=== PATIENT | male | born 1950 | race Caucasian/White ===

== ENCOUNTER 2023-11-11 09:09 | Outpatient (OUT) | payer MEDICARE, OTHER, SELFPAY ==
[2023-11-11 09:56] LABS: Hematocrit 43.8 % (42.0-54.0); Hemoglobin 14.5 g/dL (14.0-18.0); Mean Corpuscular HGB Conc 33.1 g/dL (29.9-35.2); Mean Corpuscular Hemoglobin 31.2 pg (25.9-34.0); Mean Corpuscular Volume 94.2 fL (80.0-94.0); Mean Platelet Volume 10.5 fL (9.5-13.5); Platelet Count 206 10^3/uL (150-450); Red Blood Count 4.65 10^6/uL (4.70-6.10); Red Cell Distribution Width 12.8 % (11.0-15.0); White Blood Count 18.9 10^3/uL (4.0-11.0)
[2023-11-11 10:39] LABS: Free T4 1.05 ng/dL (0.76-1.46)
[2023-11-11 10:48] LABS: Lymphocytes Absolute Manual 13.23 10^3/uL (1.20-3.80); Monocytes Absolute Manual 0.37 10^3/uL (0.30-0.80); Prostate Specific Antigen Scrn 1.27 ng/mL (<=4.00); Segmented Neut Absolute Manual 3.59 10^3/uL (1.4-6.5)
[2023-11-11 10:49] LABS: Smudge Cells SEEN
[2023-11-11 11:02] LABS: Alanine Aminotransferase 28 U/L (16-63); Albumin Globulin Ratio 1.4; Albumin Level 3.9 g/dL (3.4-5.0); Alkaline Phosphatase 65 U/L (46-116); Anion Gap 10.8; Aspartate Amino Transferase 19 U/L (15-37); BUN Creatinine Ratio 16.3; Bilirubin Total 0.9 mg/dL (0.2-1.0); Calcium 9.1 mg/dL (8.5-10.1); Carbon Dioxide 29.2 mmol/L (21.0-32.0); Chloride 106 mmol/L (98-107); Chol HDL Ratio 2.8; Cholesterol 158 mg/dL (<=200); Estimated GFR (African America >60 (>=60); Estimated GFR (Non-African Ame >60 (>=60); Globulin 2.8 g/dL; Glucose 97 mg/dL (74-106); HDL Cholesterol 57 mg/dL (40-60); LDL Cholesterol Calculated 92.8 mg/dL; Sodium 142 mmol/L (136-145); Thyroid Stimulating Hormone 1.325 uIU/mL (0.358-3.740); Total Protein 6.7 g/dL (6.4-8.2); Triglycerides 41 mg/dL (<=150); VLDL CHOLESTEROL 8.2 mg/dL
== END 2023-11-11 09:10 | disposition home or self-care (01) ==
LOC: LAB 09:14
PROVIDERS: PCP Internal Medicine; Visit Provider Internal Medicine
DX: E78.00 Pure hypercholesterolemia, unspecified (principal); C91.10 Chronic lymphocytic leukemia of B-cell type not having achieved remission; E03.8 Other specified hypothyroidism; R79.89 Other specified abnormal findings of blood chemistry; Z12.5 Encounter for screening for malignant neoplasm of prostate
CPT/HCPCS: 36415; 80053; 80061; 84439; 84443; 85007; 85027; G0103

== ENCOUNTER 2024-10-20 12:59 | Outpatient (OUT) | payer MEDICARE, OTHER, SELFPAY ==
--- OUTSIDE RECORDS SUMMARY | 2024-10-13 09:20 | XMS_ITS | Encounter Summary ---
Author Organization [facility] Address [address] [place], [place] [id number] Care Team Providers Care Viscera Washer Name Role Phone Ronald Pollard DO Primary Care Provider [phone] Source Comments In the event this information is protected by the Federal Confidentiality of Alcohol and Drug AbusePatient Records regulations: The Federal rules restrict any use of the information to criminally investigate or prosecute any alcohol or drug abuse patient.[facility] Reason for Visit * Reason Comments CLL EVERARDO/ 1 year follow u p Encounter Details Date Type Department Care Team (Latest Contact Info) Description 10/13/2024 9:20 AM EDT Visit (SP) Office Hematology/Oncology [address] [place] [address] [place] [address] Israel Dover MD [address] [facility] [place] [address] CLL (chronic lymphocytic leukemia) (HCC) (Primary Dx); Personal history of malignant neoplasm of larynx; Unilateral inguinal hernia without obstruction or gangrene, recurrence not specified; Presence of right artificial hip joint Social History Tobacco Use Types Packs/Day Years Used Date Smoking Tobacco: Never Passive Smoke Exposure: Never Smokeless Tobacco: Never Alcohol Use Standard Drinks/Week Comments Never 0 (1 standard drink = 0.6 oz pur e alcohol) PHQ-2 Answer Date Recorded PHQ-2 score 0 10/13/2024 Area Deprivation Index Answer Date Emery rded National Score (1-100), lower number is lower ri sk 86 10/17/2022 State Score (1-10), lower number is lower risk 8 10/17/2022 Data from: https://www.neighborhoodatlas.medicine.[facility]/. Last address used for calculation [address] 10/17/2022 Sex and Gender Information Value Date Recorded Sex Assigned at Male 08/04/2019 1:11 AM EDT Legal Sex Male 9:52 AM EST Gender Identity Male 08/04/2019 1:11 AM EDT Sexual Orientation Straight 08/04/2019 1: 14 AM EDT documented as of this encounter Last Filed Vital Signs Vital Sign Reading Time Taken Comments Blood Pressure 138/77 10/13/2024 9:08 AM EDT Pulse 66 10/13/2024 9:08 AM EDT Temperature 36.6 C (97.8 F) 10/13/2024 9:08 AM EDT Respiratory Rate 16 10/13/2024 9:08 AM EDT Oxygen Saturation 96% 10/13/2024 9:08 AM EDT Inhaled Oxygen Concentration - - Weight 88.9 kg (195 lb 15.8 oz) 10/13/2024 9:08 AM EDT Height 180.3 cm (5' 10.98 ) 10/13/2024 9:08 AM E DT Body Mass Index 27.35 10/13/2024 9:08 AM EDT documented in this encounter Functional Status * Are you deaf or do you have serious difficulty hearing? Answer Date of Assessment Author No 08/31/2014 9:10 AM EDT Michael Pulido lie * Are you blind or do you have serious difficulty seeing, even when wearing glasses? Answer Date of Assessment Author No 08/31/2014 9:10 AM EDT Michael Pulido lie * Do you have serious difficulty walking or climbing stairs? Answer Date of Assessment Author No 08/31/2014 9:10 AM EDT Michael Pulido lie * Do you have difficulty dressing or bathing? Answer Date of Assessment Author No 08/31/2014 9:10 AM EDT Michael Pulido lie * Because of a physical, mental, or emotional condition, do you have difficulty doing errands alone such as visiting a doctor's office or shopping? Answer Date of Assessment Author No 08/31/2014 9:10 AM EDMichael Lozada documented as of this encounter Mental Status * Because of a physical, mental, or emotional condition, do you have serious difficulty concentrating, remembering, or making decisions? Answer Entry Date Author No 08/31/2014 9:10 AM EDMichael Lozada documented in this encounter Patient Instructions * Patient Instructions* Israel Dover MD - 10/13/2024 9:38 AM EDT RTC in 1 year labs same day. We discussed your chronic lymphocytic leukemia (CLL): - Your lab results today show a white blood cell count of 15,000, hemoglobin of 13.9, and plateletsof 207. These results are consistent with your previous labs, and there are no significant changes. - Your CLL remains at stage 0, which is a very early stage. This means your bone marrow is functioning well, producing adequate red blood cells and platelets, and there is no evidence of rapid disease progression. - I did not feel any concerning lymph nodes during your physical exam, and your spleen is not enlarged. This is reassuring. - Please monitor for any new symptoms, including significant weight loss (more than 15%), drenchingnight sweats, or noticeable lymph node swelling. Let us know if you experience any of these symptoms. - We will continue to monitor your CLL with annual follow-ups unless there are changes in your condition. Your next appointment will include labs on the same day. We discussed your upcoming hip replacement: - You mentioned that you are scheduled to see Dr. Box next week for a hip replacement. Please follow their instructions for preparation and recovery. We discussed your inguinal hernia: - Since your hernia is not currently causing you any discomfort, no intervention is needed at this time. Please let us know if this changes. Follow-Up Plan: - We will see you back in one year for your next follow-up and labs. If any new symptoms or concerns arise before then, please contact our office. documented in this encounter Progress Notes * Israel Dover MD - 10/13/2024 9:20 AM EDT Images from the original note were not included. NAME: Kerwin Carrillo CLINIC NO.: [id number] DATE OF SERVICE: October 13, 2024 (Stanislaw) Some elements in this clinic note that are critical to medical decision making have been carefully reviewed and included from a prior clinic note dated: October 07, 2023 (Daily) Referring Provider: Yosef Ambrosio Additional Clinicians involved in Kerwin Carrillo's care: Allyson Hernandez DIAGNOSIS: CLL CASE SUMMARY / ASSESSMENT: 74 year old man with CLL currently under observation only and a history of early stage laryngeal cancer s/p radiation in 2019. 1. CLL 2. Stage I laryngeal cancer status post radiation therapy completed September 2019 follow-up with ENT and Dr. Hernandez 3. Inguinal hernia SUMMARIZED PLAN OF CARE: RTC in 1 year labs same day. AI Assisted A/P: 1. CLL (chronic lymphocytic leukemia) (HCC) (C91.10) Stage 0 CLL with stable laboratory findings. Recent labs show WBC count of 15,000, hemoglobin 13.9,and platelets 207, indicating stable bone marrow function. No significant lymphadenopathy or splenomegaly noted on physical exam. No reported symptoms of weight loss or night sweats. - Continue annual follow-up with laboratory evaluations. - Monitor for any signs of disease progression, including significant increases in WBC count or development of symptoms such as night sweats or weight loss. - Patient understands and agrees with the plan. 2. Personal history of malignant neoplasm of larynx (Z85.21) Completed treatment in 2019. No current issues reported. Follow-up with Dr. Garces today. 3. Unilateral inguinal hernia without obstruction or gangrene, recurrence not specified (K40.90) Hernia present but not causing significant symptoms. Advised by Dr. Pollard to leave it alone if not bothersome. 4. Presence of right artificial hip joint (Z96.641) Scheduled for hip replacement with Dr. Box next week due to chronic pain unrelieved by previous injections. CASE HISTORY: Reverse Chronological Order 08/16/19-09/23/19 Radiation : AREA TREATED: Larynx 6,300cGy in 28 fractions, 2 Christian, 3D Conformal, 6MV with daily CBCT TOTAL:6,300cGy in 28 fractions ELAPSED TIME: 38 days. HPI: Updated Visit, October 16, 2024: transition of care On 2019, patient completed treatment for laryngeal cancer and has been following up with Dr. Garces. Patient was diagnosed with Gallegos stage 0 chronic lymphocytic leukemia (CLL) over a year ago, characterized by elevated lymphocyte counts. Recent labs from today show a WBC count of 15,000 cells/??L, hemoglobin at 13.9 g/dL, and plateletsat 207,000/??L, indicating stable hematologic parameters. Patient denies any significant weight loss, night sweats, or noticeable lymphadenopathy. He is scheduled for a hip replacement next week due to chronic hip pain that has not responded to recent injections. He also has an inguinal hernia that is not currently causing symptoms. (Today) CBC: - WBC: 15 x10^3/??L - Hemoglobin: 13.9 g/dL - Platelets: 207 x10^3/??L REVIEW OF SYSTEMS Per HPI and otherwise negative by full review of organ systems. ECOG PERFORMANCE STATUS: 0 PHYSICAL EXAMINATION: Vitals: BP 138/77 Pulse 66 Temp (Src) 97.8 (Temporal) Resp 16 Ht 5' 10.984 (1.80m) Wt 195 lb 15.8 oz (88.9kg) SpO2 96% BMI 27.35 kg/(m^2). Body surface area is 2.11 meters squared. Exam limited to gross visualization where appropriate. Gen.: This is an age-appropriate patient in no acute distress. Head: Appears atraumatic with no visible lesions. Eyes: Pupils equally round and reactive to light, extraocular muscles are intact. Neck: Supple. Respiratory: Appears to be respiring comfortably. Neurologic: Nonfocal to gross visualization. Alert and oriented ??3. Psychiatric: No evidence of inappropriate anxiety or depression. Skin: Visible areas of skin without rash, lesions, wounds or petechiae. Lymphatic: No lymphadenopathy in suboccipital, submandibular, supraclavicular, epitrochlear, axillary, or inguinal regions Abdomen: Soft, non-tender, non-distended, no masses palpable, no hepatosplenomegaly ALLERGIES: ALLERGIES No Known Allergies MEDICATIONS: traMADol (ULTRAM) 50 mg tablet Take 50 mg by mouth two times a day as needed. meloxicam (MOBIC) 15 mg tablet atorvastatin (LIPITOR) 10 mg tablet Take 10 mg by mouth once daily. LABORATORY VALUES: WBC (k/uL) Date Value 10/13/2024 15.57 (H) RBC (m/uL) Date Value 10/13/2024 4.47 Hemoglobin (g/dL) Date Value 10/13/2024 13.9 Hematocrit (%) Date Value 10/13/2024 42.7 MCV (fL) Date Value 10/13/2024 95.5 MCH (pg) Date Value 10/13/2024 31.1 MCHC (g/dL) Date Value 10/13/2024 32.6 RDW-CV (%) Date Value 10/13/2024 13.0 Platelet Count (k/uL) Date Value 10/13/2024 207 MPV (fL) Date Value 10/13/2024 10.6 Glucose (mg/dL) Date Value 10/13/2024 107 (H) BUN (mg/dL) Date Value 10/13/2024 19 Creatinine (mg/dL) Date Value 10/13/2024 1.03 Sodium (mmol/L) Date Value 10/13/2024 142 Potassium (mmol/L) Date Value 10/13/2024 4.3 Chloride (mmol/L) Date Value 10/13/2024 106 CO2 (mmol/L) Date Value 10/13/2024 28 Protein, Total (g/dL) Date Value 10/13/2024 6.6 Albumin (g/dL) Date Value 10/13/2024 4.5 Calcium, Total (mg/dL) Date Value 10/13/2024 9.5 Alkaline Phosphatase (U/L) Date Value 10/13/2024 78 Bilirubin, Total (mg/dL) Date Value 10/13/2024 1.0 AST (U/L) Date Value 10/13/2024 19 ALT (U/L) Date Value 10/13/2024 19 DIAGNOSIS: (C91.10) CLL (chronic lymphocytic leukemia) (HCC) (primary encounter diagnosis) Plan: LACTATE DEHYDROGENASE, COMPLETE BLOOD COUNT AND DIFFERENTIAL, COMPREHENSIVE METABOLIC PANEL, URIC ACID (Z85.21) Personal history of malignant neoplasm of larynx (K40.90) Unilateral inguinal hernia without obstruction or gangrene, recurrence not specified (Z96.641) Presence of right artificial hip joint PAST MEDICAL HISTORY Diagnosis Date Basal cell adenocarcinoma CLL (chronic lymphocytic leukemia) (HCC) GERD (gastroesophageal reflux disease) Hypercholesteremia PAST SURGICAL HISTORY Procedure Laterality Date HERNIA REPAIR HX Social History Tobacco Use Smoking status: Never Passive exposure: Never Smokeless tobacco: Never Vaping Use Vaping status: Never Used Substance Use Topics Alcohol use: Never Drug use: Never History reviewed. No pertinent family history. I spent a total of 30 minutes on the date of the service which included preparing to see the patient, aiku-es-pilz patient care, completing clinical documentation, obtaining and/or reviewing separately obtained history, performing a medically appropriate examination, counseling and educating the pat ient/family/caregiver, ordering medications, tests, or procedures, independently interpreting results (not separately reported), communicating results to the patient/family/caregiver, and care coordination (not separately reported). Israel Dover MD, CPE Hematology and Oncology Services Provided at: [place], [place] CC: Ronald Pollard DO documented in this encounter Plan of Treatment Upcoming Encounters Date Type Department Care Team (Latest Contact Info) Description 10/13/2025 10:00 AM EDT Office Visit [facility] [address] [place] [address] [place] [address] 1 year follow up with lab 10/13/2025 10:20 AM EDT Visit (SP) Office Hematology/Oncology [address] [facility] [place] [address] Israel Dover MD [address] [place] [address] [place] [address] 1 year follow up with lab Scheduled Orders Name Type Priority Associated Diagnoses Orde r Schedule LACTATE DEHYDROGENASE Lab Routine CLL (chronic lymphocytic leukemia) (HCC) Expected: 10/13/2025 (Approximate), Expires: 10/13/2025 COMPLETE BLOOD COUNT AND DIFFERENTIAL Lab Routine CLL (chronic lymphocytic leukemia) (HCC) Expected: 10/13/2025 (Approximate), Expires: 10/13/2025 COMPREHENSIVE METABOLIC PANEL Lab Routine CLL (chronic lymphocytic leukemia) (HCC) Expected: 10/13/2025 (Approximate), Expires: 10/13/2025 URIC ACID Lab Routine CLL (chronic lymphocytic leukemia) (HCC) Expected: 10/13/2025 (Approximate), Expires: 01/12/2026 documented as of this encounter Visit Diagnoses Diagnosis CLL (chronic lymphocytic leukemia) (HCC)- Primary Chronic lymphoid leukemia, without mention of having achieved remission Personal history of malignant neoplasm of larynx Unilateral inguinal hernia without obstruction or gangrene, recurrence not specified Presence of right artificial hip joint Hip joint replacement by other means documented in this encounter Care Teams Viscera Washer Relationship Specialty Start Date End Date Ronald Pollard DO PCP - General Internal Medicine 05/02/11 documented as of this encounter
--- OUTSIDE RECORDS SUMMARY | 2024-10-13 09:45 | XMS_ITS | Encounter Summary ---
Author Organization [facility] Address [address] [place], [place] [address] Care Team Providers Care Hide Washer Name Role Phone Ronald Pollard DO Primary Care Provider [phone] Source Comments In the event this information is protected by the Federal Confidentiality of Alcohol and Drug AbusePatient Records regulations: The Federal rules restrict any use of the information to criminally investigate or prosecute any alcohol or drug abuse patient.[facility] Reason for Visit * Reason Comments Head and Neck Cancer Encounter Details Date Type Department Care Team (Late st Contact Info) Description 10/13/2024 9:45 AM EDT Office Visit Radiation Oncology [address] [place] [address] Juancarlos Hernandez MD [address] [place] [address] History of cancer of larynx (Primary Dx) Social History Tobacco Use Types Packs/Day Years [...] is lower risk 8 10/17/2022 Data from: https://www.neighborhoodatlas.medicine.[facility]/. Last address used for calculation [address] 10/17/2022 Sex and Gender Information Value Date Recorded Sex Assigned at Male 08/04/2019 1:11 AM EDT Legal Sex Male 9:52 AM EST Gender Identity Male 08/04/2019 1:11 AM EDT Sexual Orientation Straight 08/04/2019 1: 14 AM EDT documented as of this encounter Functional Status * Are you [...] Assessment Author No 08/31/2014 9:10 AM EDT AltMichael george lie * Do you have difficulty dressing or bathing? Answer Date of Assessment Author No 08/31/2014 9:10 AM EDT AltMichael george lie * Because of a physical, mental, or emotional condition, do you have difficulty doing errands alone such as visiting a doctor's office or shopping? Answer Date of Assessment Author No 08/31/2014 9:10 AM EDT Michael Pulido lie documented as of this encounter Mental Status * Because of a physical, mental, or emotional condition, do you have serious difficulty concentrating, remembering, or making decisions? Answer Entry Date Author No 08/31/2014 9:10 AM EDT Michael Pulido lie documented in this encounter Progress Notes * Juancarlos Hernandez MD - 10/13/2024 9:46 AM EDT Radiation Oncology - Follow Up Note PATIENT DIAGNOSIS: Laryngeal cancer, right true cord T1N0M0 RADIATION SUMMARY: DATES OF TREATMENT: 08/16/19-09/23/19 AREA TREATED: Larynx DELIVERED DOSE: Larynx: 6,300cGy in 28 fractions, 2 Christian, 3D Conformal, 6MV with daily CBCT TOTAL:6,300cGy in 28 fractions ELAPSED TIME: 38 days. INTERVAL HISTORY: Doing well. Denies any hoarseness. No dysphagia. 10/17/22: Doing well denies new problems. Denies dysphagia or neck pain. Voice stable. 10/18/21:Patient developed episode of hair loss including eyebrows. Also some lack of appetite. Has been on odomzo. Which he has stopped and symptoms seem to have reversed. He was also started on prednisone. Also underwent laboratory work-up without significant findings. LABORATORY: Latest Reference Range & Units 06/08/20 09:14 10/03/20 11:31 10/10/22 08:45 T4 5.5 - 10.2 ug/dL 6.8 6.3 6.3 TSH 0.270 - 4.200 mIU/L 1.390 1.050 1.340 ALLERGIES No Known Allergies MEDICATIONS: traMADol (ULTRAM) 50 mg tablet Take 50 mg by mouth two times a day as needed. meloxicam (MOBIC) 15 mg tablet atorvastatin (LIPITOR) 10 mg tablet Take 10 mg by mouth once daily. REVIEW OF SYSTEMS: GENERAL: Negative for weight loss, fevers, chills, or night sweats. HEENT: Denies dysphasia dyspnea otalgia or other issues. NECK: Negative for masses in the neck. RESPIRATORY: Negative for cough or shortness of breath. CARDIAC: Negative for chest pain, palpitations, murmurs, or syncopal episodes. SKIN: Negative for rashes or other skin changes. PHYSICAL EXAM: 10/13/24 Weight 88.9 kg (195 lb 15.8 oz) Height 180.3 cm (5' 10.98 ) BSA 2.11 BMI 27.35 Temp 36.6 ??C (97.8 ??F) Pulse 66 Resp 16 BP 138/77 SpO2 96 % KPS: 100 General Appearance: Well appearing, alert, in no acute distress, well-hydrated, well nourished.. Skin: Skin color, texture, turgor normal, no suspicious rashes or lesions. Slight hypopigmentation noted anterior neck. Oropharynx: Lips, mucosa, and tongue normal, teeth and gums normal, oropharynx normal. Indirect laryngeal exam without remarkable finding Neck: Supple, no adenopathy or masses ASSESSMENT/PLAN: 1. 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 He has continued close follow-up with Dr. Carrizales. He is now 5 years out from treatment. No postradiation issues. Plan to see patient back on an as needed basis. Your 2. Chronic lymphocytic leukemia diagnosed Clinical stage I disease. Current therapy is observation an is seeing Dr. Dover. Signed by: Juancarlos Hernandez MD cc: Ronald Pollard MD ([facility]) Dr. Carrizales Portions of the above note extracted and edited from previous visit as well as active information included in the EMR. documented in this encounter Plan of Treatment Upcoming Encounters Date Type Department Care Team (Latest Contact Info) Description 10/13/2025 10:00 AM EDT Office Visit [facility] [address] [place] [address] [place] [address] 1 year follow up with lab 10/13/2025 10:20 AM EDT Visit (SP) Office Hematology/Oncology [address] [place] [address] [place] [address] Israel Dover MD [address] [place] [address] 1 year follow up with lab documented as of this encounter Visit Diagnoses Diagnosis History of cancer of larynx- Primary Personal history of malignant neoplasm of larynx documented in this encounter Care Teams Hide Washer Relationship Specialty Start Date End Date Ronald Pollard DO PCP - General Internal Medicine 05/02/11 documented as of this encounter
--- OUTSIDE RECORDS SUMMARY | 2024-10-20 08:42 | XMS_ITS | Continuity of Care Document ---
Author Name [facility] Organization [facility] Care Team Providers Care Credit Card Interviewer Name Role Phone [facility] Unavailable Unavailable Medications Combined list of outpatient medications from Department of Defense and Veterans Affairs facilities.Medications provided include 1) outpatient medications from the last 15 months, and 2) patient-reported medications. Medication Details Route Status Patient Instructions Prescription Expires Prescription Number Last Dispense Date Ordering Provider Order Date Order Qty Source ATORVASTATI N CALCIUM (atorvastat in calcium), 20 MG, TABLET, ORAL, LAILA PHARMACEU, 500 ea. BOTTLE Active [id number] 2023 90 Pharmac y Data Transac tion Service Facilit y Immunizations Combined list of available immunizations from the Department of Defense and Veterans Affairs facilities. Immunization Series Date Given Administered By Site Reaction Lot Number CVX Code Drug Price Lister Status Comments Source COVID-19, mRNA, LNP-S, PF, 30 mcg/0.3 mL dose, gregg-sucrose 2021 MATHEW DICKENS () Not Given COVID-19, mRNA, LNP-S, PF, 30 mcg/0.3 mL dose, gregg-sucr ose [facility] Influenza vaccine, quadrivalent, adjuvanted 2019 MATHEW DICKENS () Not Given Influenza vaccine, quadrival ent, adjuvante d [facility] influenza, trivalent, adjuvanted 2018 MATHEW DICKENS () Not Given influenza , trivalent , adjuvante d [facility] influenza, injectable, quadrivalent, preservative free 2015 VESTA () Not Given influenza , injectabl e, quadrival ent, preservat antoine free [facility] influenza, injectable, quadrivalent, preservative free 2014 GIO LEMONS () Not Given influenza , injectabl e, quadrival ent, preservat antoine free [facility] Social History Combined list of available smoking, tobacco, and other social history from Department of Defense and Veterans Affairs facilities. Social History Type Response Date Comment [facility] e This section is an empty social history section. [facility]
--- OUTSIDE RECORDS SUMMARY | 2024-10-20 13:02 | XMS_ITS | Clinical Summary ---
Author Organization [facility] Address [address] [place] [address] Care Team Providers Care Manager Employment Name Role Phone Ronald Pollard DO Primary Care Provider [phone] Allergies No known active allergies Medications meloxicam (Mobic) 15 MG tablet Take 15 mg by mouth in the morning. Active atorvastatin (Lipitor) 10 MG tablet Take 10 mg by mouth 1 (one) time each day at the same time. Active omeprazole (PriLOSEC) [address] capsule Take 40 mg by mouth in the morning. Take before meals. 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 Immunizations Immunization Administration Dates Next Due Pneumococcal Polysaccharide PPSV23 12/20/2015 SARS-CoV-2, Unspecified 01/15/2022 Family History Medical History Relation Name Comments Alcohol abuse Father Heart failure Father Dementia Mother Mental illness Mother Relation Name Status Comments Father Mother Social History Tobacco Use Types Packs/Day Years Used Date Smoking Tobacco: Never Smokeless Tobacco: Never Tobacco Cessation:Counseling Given: Not Answered Alcohol Use Standard Drinks/Week Comments Yes 8 (1 standard drink = 0.6 oz pure alcohol) 1-2 drinks for >4x a week in the past year, Caffeine intake: 1-2 cups per day AUDIT-C Answer Date Recorded Q1: How often do you have a drink containing alcohol? 4 or more times a week 03/28/2023 Q2: How many drinks containi ng alcohol do you have on a typical day when you are drinking? 1 or 2 01/12/202 4 Q3: How often do you have si x or more drinks on one occasion? Never 03/28/2023 Sex and Gender Information Value Date Recorded Sex Assigned at Not on file Legal Sex Male 10:09 PM EDT Gender Identity Not on file Sexual Orientation Not on file Last Filed Vital Signs Vital Sign Reading Time Taken Comments Blood Pressure 124/54 12/30/2023 8:45 AM EDT Pulse - - Temperature - - Respiratory Rate - - Oxygen Saturation - - Inhaled Oxygen Concentration - - Weight 90.7 kg (200 lb) 12/30/2023 8:45 AM EDT Height 180.3 cm (5' 11 ) 12/30/2023 8:45 AM EDT Body Mass Index 27.89 12/30/2023 8:45 AM EDT Plan of Treatment Upcoming Encounters Date Type Department Care Team (Late st Contact Info) Description 12/28/2024 9:00 AM EDT Office Visit [facility] [address] [facility] [address] [place] [address] Miracle Carrizales MD [address] [facility] [address] [place] [address] Health Maintenance Due Date Last Done Comments CT Colonography 1949 Colonoscopy 1949 FIT 1949 FOBT 1950 Sigmoidoscopy 1950 Colorectal Cancer Screening 11/05/2024 FIT-DNA 11/05/2024 11/05/2021, 10/28/2018 Influenza Vaccine (#1) 2024 3, 01/15/2022, 12/04/2020, Additional history exists Pneumococcal Vaccine: 65+ Years Completed 12/20/2015, 02/20/2015, 1950 Insurance MEDICARE Care Teams Manager Employment Relationship Specialty Start Date End Date Ronald Pollard DO PCP - General Internal Medicine 08/20/22
--- OUTSIDE RECORDS SUMMARY | 2024-10-20 13:02 | XMS_ITS | Encounter Summary ---
Author Organization [facility] Address [address] [place], [place] [id number] Care Team Providers Care Manager Heavy Duty Name Role Phone Ronald Pollard DO Primary Care Provider [phone] Source Comments In the event this information is protected by the Federal Confidentiality of Alcohol and Drug AbusePatient Records regulations: The Federal rules restrict any use of the information to criminally investigate or prosecute any alcohol or drug abuse patient.[facility] Encounter Details Date Type Department Care Team (Latest Contact Info) Description 10/13/2024 Travel Social History Tobacco Use Types Packs/Day Years [...] is lower risk 8 10/17/2022 Data from: https://www.neighborhoodatlas.medicine.[facility].edu/. Last address used for calculation [address] 10/17/2022 Sex and Gender Information [...] AltMichael george lie * Do you have serious difficulty [...] Michael Pulido lie documented in this encounter Plan of Treatment Upcoming Encounters Date Type Department Care Team (Latest Contact Info) Description 10/13/2025 10:00 AM EDT Office Visit [facility] [address] [place] [address] 1 year follow up with lab 10/13/2025 10:20 AM EDT Visit (SP) Office Hematology/Oncology [address] [place] [address] Israel Dover MD [address] [place] [address] 1 year follow up with lab documented as of this encounter Visit Diagnoses Not on filedocumented in this encounter Care Teams Manager Heavy Duty Relationship Specialty Start Date End Date Ronald Pollard DO PCP - General Internal Medicine 05/02/11 documented as of this encounter
--- OUTSIDE RECORDS SUMMARY | 2024-10-20 13:02 | XMS_ITS | Clinical Summary ---
Author Organization [facility] Address [address] [place], [place] [id number] Care Team Providers Care Carpenter Mold Name Role Phone Ronald Pollard DO Primary Care Provider [phone] Allergies No known active allergies Medications atorvastatin (LIPITOR) 10 mg tablet Take 10 mg by mouth once daily. Active meloxicam (MOBIC) 15 mg tablet 08/27/2022 Active traMADol (ULTRAM) 50 mg tablet Take 50 mg by mouth two times a day as needed. 08/04/2024 Active Active Problems Problem Noted Date Diagnosed Date CLL (chronic lymphocytic leukemia) 03/26/2012 Cancer Staging:Clinical stage from 08/26/2018:Modified Gallegos Stage I(Modified Gallegos risk: Intermediate, Binet: Stage B, Lymphocytosis: Present, Adenopathy: Present, Organomegaly: Absent, Anemia: Absent, Thrombocytopenia: Absent) - Signed by Yosef Ambrosio) on 08/26/2018 Encounters Date Type Department Care Team Description 10/13/2024 9:45 AM EDT Office Visit Radiation Oncology [address] [place] [address] [place] [address] Juancarlos Hernandez MD History of cancer of larynx (Primary Dx) 10/13/2024 9:20 AM EDT Visit (SP) Office Hematology/Oncology [address] [place] [address] [place] [address] Israel Dover MD CLL (chronic lymphocytic leukemia) (HCC) (Primary Dx); Personal history of malignant neoplasm of larynx; Unilateral inguinal hernia without obstruction or gangrene, recurrence not specified; Presence of right artificial hip joint 10/13/2024 Travel 10/06/2024 Telephone Hematology/Oncology [address] [place] [address] [place] [address] Israel Dover MD Lab Orders from Last 3 Months Immunizations Immunization Administration Dates Next Due AS03 adjuvant 12/25/2018 diphtheria tetanus pertussis (DTP) vaccine 06/13 influenza (HD-IIV3) vaccine, age 65+ yr, high dose, trivalent, PF (FLUZONE HIGH-DOSE) 12/01/2019 influenza (HD-IIV4) vaccine, age 65+ yr, high dose, quadrivalent, PF (FLUZONE HIGH-DOSE) 01/15/2022,12/04/2020 influenza (IIV4) vaccine, ag e 6 mo - 64 yr, quadrivalent, PF (AFLURIA, FLUARIX, FLULAVAL, FLUZONE) 12/01/2019,12/24/2016,12/20/2015 influenza (aIIV3) vaccine, a ge 65+ yr, trivalent, PF (FLUAD) 01/19/2024,12/25/2018,12/23/2017 influenza (aIIV4) vaccine, a ge 65+ yr, quadrivalent, PF (FLUAD QUAD) 12/20/2022 pneumococcal (PCV7) vaccine, 7 valent (PREVNAR 7) 1950 pneumococcal conjugate (PCV1 3) vaccine, 13 valent (PREVNAR 13) 02/20/2015 pneumococcal polysaccharide (PPV23) vaccine, 23 valent (PNEUMOVAX 23) 12/20/2015 tetanus diphtheria pertussis (Tdap) vaccine, age 7+ yr (ADACEL, BOOSTRIX) 01/18/2008 Social History Tobacco Use Types Packs/Day Years Used Date Smoking Tobacco: Never Passive Smoke Exposure: Never Smokeless Tobacco: Never Tobacco Cessation:Counseling Given: Not Answered Alcohol Use Standard Drinks/Week Comments Never 0 (1 standard drink = 0.6 oz pur e alcohol) PHQ-2 Answer Date Recorded PHQ-2 score 0 10/13/2024 Area Deprivation Index Answer Date Emery rded National Score (1-100), lower number is lower ri sk 86 10/17/2022 State Score (1-10), lower number is lower risk 8 10/17/2022 Data from: https://www.neighborhoodatlas.[facility].edu/. Last address used for calculation [address] 10/17/2022 Sex and Gender Information Value Date Recorded Sex Assigned at Male 08/04/2019 1:11 AM EDT Legal Sex Male 9:52 AM EST Gender Identity Male 08/04/2019 1:11 AM EDT Sexual Orientation Straight 08/04/2019 1: 14 AM EDT Last Filed Vital Signs Vital Sign Reading [...] Mass Index 27.35 10/13/2024 9:08 AM EDT Plan of Treatment Upcoming Encounters Date Type Department Care Team (Latest Contact Info) Description 10/13/2025 10:00 AM EDT Office Visit [facility] [address] [place] [address] [place] [address] 1 year follow up with lab 10/13/2025 10:20 AM EDT Visit (SP) Office Hematology/Oncology [address] [facility] [place] [address] Israel Dover MD [address] [facility] [place] [address] 1 year follow up with lab Health Maintenance Due Date Last Done Comments Anxiety Screening 1967 Depression Screening 1967 Hepatitis C Screening 1967 Shingrix Vaccine (1 of 2) [address] Colonography 1994 Colonoscopy 1994 Fecal Occult Blood 1994 Sigmoidoscopy 1994 Medicare Annual Wellness Visit 02/14/2014 RSV Vaccine (1 - 1-dose 75+ series) 2024 Advance Directive Discussion 03/17/2024 Cologuard (FIT-DNA) 11/05/2024 11/05/2021, 9 Colorectal Cancer Screening 11/05/2024 Influenza Vaccine (#1) 2024 , 12/20/2022, 01/15/2022, Additional history exists Diabetes Screening 10/14/2027 10/13/2024, 0 10/14/2023, 11/05/2022, Additional history exists DTaP,Tdap,Td Vaccine (3 - Td or Tdap) 06/14/2031 06/13/2021, 01/18/2008 Pneumococcal Vaccine: 50+ Completed 2015, 02/20/2015, 1950 Procedures Procedure Name Priority Date/Time Associated Diagnosis Comments LD LACTATE DEHYDRO Routine 10/13/2024 9: 04 AM EDT CLL (chronic lymphocytic leukemia) (HCC) COMPREHENSIVE METABOLIC PANEL Routine 10/13/2024 9:04 AM EDT CLL (chronic lymphocytic leukemia) (HCC) CBC + DIFF Routine 10/13/2024 9:04 AM EDT CLL (chronic lymphocytic leukemia) (HCC) from Last 3 Months Results * LACTATE DEHYDROGENASE (10/13/2024 9:04 AM EDT) LD 171 135 - 225 U/L 10/13/2024 9:[address] [facility] Comment: Hemolysis present. The origin of the hemolysis, in vitro versus an in vivo hemolytic process, cannot be distinguished via this assay alone. In vitro hemolysis may lead to non-physiological (spurious) elevation in lactate dehydrogenase (LDH) results. The result should be interpreted in context of the clinical setting and other test results. Suggest reorder as clinically indicated. Blood BLOOD SPECIMEN / Unknown Venipuncture / Unknown 10/13/2024 9:04 AM EDT 10/13/2024 9:04 AM EDT us Bisi Dye FEED BLENDER.BOARD CERTIFIED MUSIC THERAPIST LABORATORY Final Re sult [facility] [address] [place] [address] * (ABNORMAL) COMPREHENSIVE METABOLIC PANEL (10/13/2024 9:04 AM EDT) Pathologist [facility] Protein, Total 6.6 6.3 - 8.0 g/dL 10/13/2024 9:[address] [facility] Albumin 4.5 3.9 - 4.9 g/dL 10/13/2024 9:[address] [facility] Calcium, Total 9.5 8.5 - 10.2 mg/dL 10/13/2024 9:[address] [facility] Bilirubin, Total 1.0 0.2 - 1.3 mg/dL 10/13/2024 9:[address] [facility] Alkaline Phosphatase 78 38 - 113 U/L 10/13/2024 9:[address] [facility] AST 19 14 - 40 U/L 10/13/2024 9:[address] [facility] ALT 19 10 - 54 U/L 10/13/2024 9:[address] [facility] Glucose 107(H) 74 - 99 mg/dL 10/13/2024 9:[address] [facility] Comment: The [place] Diabetes Association (ADA) provides guidance for cutoff values for fasting glucose and random glucose. The ADA defines fasting as no caloric intake for at least 8 hours. Fasting plasma glucose results between 100 to 125 mg/dL indicate increased risk for diabetes (prediabetes). Fasting plasma glucose results greater than or equal to 126 mg/dL meet the criteria for diagnosis of diabetes. In the absence of unequivocal hyperglycemia, results should be confirmed by repeat testing. In a patient with classic symptoms of hyperglycemia or hyperglycemic crisis, random plasma glucose results greater than or equal to 200 mg/dL meet the criteria for diagnosis of diabetes. Reference: Standards of Medical Care in Diabetes 2016, [place] Diabetes Association. Diabetes Care. 2016.39(Suppl 1). BUN 19 9 - 24 mg/dL 10/13/2024 9:[address] [facility] Creatinine 1.03 0.73 - 1.22 mg/dL 10/13/2024 9:[address] [facility] Sodium 142 136 - 144 mmol/L 10/13/2024 9:[address] [facility] Potassium 4.3 3.7 - 5.1 mmol/L 10/13/2024 9:[address] [facility] Chloride 106 98 - 107 mmol/L 10/13/2024 9:[address] [facility] CO2 28 22 - 30 mmol/L 10/13/2024 9:[address] [facility] Anion Gap 8 8 - 15 mmol/L 10/13/2024 9:[address] [facility] Estimated Glomerular Filtration Rate 76 >=60 mL/min/1. 73m 10/13/2024 9:[address] [facility] Comment:Estimated Glomerular Filtration Rate (eGFR) is calculated using the 2020 CKD-EPI creatinine equation. This equation utilizes serum creatinine, sex, and age as parameters. The creatinine assay has traceable calibration to isotope dilution- mass spectrometry. Refer to KDIGO guidelines for clinical interpretation. In patients with unstable renal function, e.g. those with acute kidney injury, the eGFR may not accurately reflect actual GFR. Blood BLOOD SPECIMEN / Unknown Venipuncture / Unknown 10/13/2024 9:04 AM EDT 10/13/2024 9:04 AM EDT us Bisi Dye APRN.BOARD CERTIFIED MUSIC THERAPIST LABORATORY Final Re sult [facility] [address] [place] [address] * (ABNORMAL) COMPLETE BLOOD COUNT AND DIFFERENTIAL (10/13/2024 9:04 AM EDT) WBC 15.57(H) 3.70 - 11.00 k/uL 10/13/2024 6:[address] [facility] RBC 4.47 4.20 - 6.00 m/uL 10/13/2024 6:[address] [facility] Hemoglobin 13.9 13.0 - 17.0 g/dL 10/13/2024 6:[address] [facility] Hematocrit 42.7 39.0 - 51.0 % 10/13/2024 6:[address] [facility] MCV 95.5 80.0 - 100.0 fL 10/13/2024 6:[address] [facility] MCH 31.1 26.0 - 34.0 pg 10/13/2024 6:[address] [facility] MCHC 32.6 30.5 - 36.0 g/dL 10/13/2024 6:[address] [facility] RDW-CV 13.0 11.5 - 15.0 % 10/13/2024 6:[address] [facility] Platelet Count 207 150 - 400 k/uL 10/13/2024 6:[address] [facility] MPV 10.6 9.0 - 12.7 fL 10/13/2024 6:[address] [facility] NRBC 0.0 /100 WBC 10/13/2024 6:36 PM EDT [facility] Absolute nRBC <0.01 <0.01 k/uL 10/13/2024 6:36 PM EDT [facility] Neutrophils % 6.0 % 10/13/2024 6:36 PM EDT [facility] Abs Neut (Segs + Bands) 0.93(L) 1.45 - 7.50 k/uL 10/13/2024 6:36 PM EDT [facility] Lymphocytes % 87.0 % 10/13/2024 6:36 PM EDT [facility] Abs Lymph (Normal + Reactive) 13.55(H) 1.00 - 4.00 k/uL 10/13/2024 6:36 PM EDT [facility] Monocytes % 2.0 % 10/13/2024 6:36 PM EDT [facility] Abs Sheridan 0.31 <0.87 k/uL 10/13/2024 6:36 PM EDT [facility] Eosin% 4.0 % 10/13/2024 6:36 PM EDT [facility] Abs Eosin 0.62(H) <0.46 k/uL 10/13/2024 6:36 PM EDT [facility] Basophils % 1.0 % 10/13/2024 6:36 PM EDT [facility] Abs Baso 0.16(H) <0.11 k/uL 10/13/2024 6:36 PM EDT [facility] Platelet Estimate Adequate 10/13/2024 6:36 PM EDT [facility] Red Cell Morph Reviewed: unremarkable 10/13/2024 6:36 PM EDT [facility] Diff Type Manual 10/13/2024 6:36 PM EDT [facility] Blood BLOOD SPECIMEN / Unknown Venipuncture / Unknown 10/13/2024 9:04 AM EDT 10/13/2024 9:04 AM EDT Narrative [facility] - 10/13/2024 6:36 PM EDT This is an appended report. These results have been appended to a previously verified report. us Bisi Dye FEED BLENDER.BOARD CERTIFIED MUSIC THERAPIST LABORATORY Final Re sult [facility] [address] [place] [address], [facility] [address] [place] [address] from Last 3 Months Insurance [facility] LIFE MEDICARE Care Teams Carpenter Mold Relationship Specialty Start Date End Date Ronald Pollard DO PCP - General Internal Medicine 05/02/11
--- OUTSIDE RECORDS SUMMARY | 2024-10-20 13:02 | XMS_ITS | Clinical Summary ---
Author Organization [facility] Address [address] [place] [address] Phone Care Team Providers Care Project Inspector Name Role Phone Unavailable Primary Care Provider Unavailabl e Social History Tobacco Use Types Packs/Day Years Used Date Smoking Tobacco: Never Assessed Sex and Gender Information Value Date Recorded Sex Assigned at Not on file Legal Sex Male 4:00 AM EST Gender Identity Not on file Sexual Orientation Not on file Plan of Treatment Health Maintenance Due Date Last Done Comments CT Colonography 1950 Colonoscopy 1949 FIT 1949 Lipid Panel 1949 Sigmoidoscopy 1949 Zoster Vaccines (1 of 2) 1999 COVID-19 Vaccine ( season) 2023 01/15/2022, 06/18/2021 RSV High Risk: (Elderly (60+) or Population) (1 - 1-dose 75+ series) 2024 Colorectal Cancer Screening 11/05/2024 FIT-DNA (Cologuard) 11/05/2024 11/05/2021 Influenza Vaccine (#1) 2024 3, 01/15/2022, 12/04/2020, Additional history exists DTaP/Tdap/Td Vaccines (4 - Td or Tdap) 06/14/2031 06/13/2021, 12/20/2015, 01/18/2008 Pneumococcal Vaccine Completed 12/20/2015, 02/20/2015, 1950 HIB Vaccines Aged Out No longer eligi ble based on patient's age to complete this topic HPV Vaccines Aged Out No longer eligi ble based on patient's age to complete this topic Hepatitis A Vaccines Aged Out No long er eligible based on patient's age to complete this topic Hepatitis B Vaccines Aged Out No long er eligible based on patient's age to complete this topic IPV Vaccines Aged Out No longer eligi ble based on patient's age to complete this topic Meningococcal Vaccine Aged Out No vera maria eligible based on patient's age to complete this topic Rotavirus Vaccines Aged Out No longer eligible based on patient's age to complete this topic
--- OUTSIDE RECORDS SUMMARY | 2024-10-20 13:02 | XMS_ITS | Encounter Summary ---
Author Organization [facility] Address [address] [facility] [place] [address] Care Team Providers Care Site Damage Prevention Technician Name Role Phone Ronald Pollard Primary Care Provider [phone] Encounter Details Date Type Department Care Team (Late Contact Info) Description 08/21/2022 Abstract [facility] [address] [facility] [place] [place] [address] Miracle Carrizales MD 112 [facility] [address] [place], [place] [id number] Social History Tobacco Use Types Packs/Day Years Used Date Smoking Tobacco: Never Smokeless Tobacco: Never Tobacco Cessation:Counseling Given: Not Answered Alcohol Use Standard Drinks/Week Comments Yes 8 (1 standard drink = 0.6 oz pure alcohol) 1-2 drinks for >4x a week in the past year, Caffeine intake: 1-2 cups per day Sex and Gender Information Value Date Recorded Sex Assigned at Not on file Legal Sex Male 10:09 PM EDT Gender Identity Not on file Sexual Orientation Not on file documented as of this encounter Plan of Treatment Upcoming Encounters Date Type Department Care Team (Late st Contact Info) Description 12/28/2024 9:00 AM EDT Office Visit [facility] [address] [facility] [address] [place] [id number] Miracle Carrizales MD 112 [facility] [address] [place], [place] [id number] documented as of this encounter Visit Diagnoses Not on filedocumented in this encounter Care Teams Site Damage Prevention Technician Relationship Specialty Start Date End Date Ronald Pollard DO PCP - General Internal Medicine 08/20/22 documented as of this encounter
--- OUTSIDE RECORDS SUMMARY | 2024-10-20 13:02 | XMS_ITS | Encounter Summary ---
Author Organization [facility] Address [address] [place], [place] [id number] Care Team Providers Care Integration Technician Name Role Phone Ronald Pollard DO Primary Care Provider [phone] Source Comments In the event this information is protected by the Federal Confidentiality of Alcohol and Drug AbusePatient Records regulations: The Federal rules restrict any use of the information to criminally investigate or prosecute any alcohol or drug abuse patient.[facility] Reason for Visit * Reason Comments Lab Orders Encounter Details Date Type Department Care Team (Late st Contact Info) Description 10/06/2024 Telephone Hematology/Oncology [address] [facility] [address] Israel Dover MD [address] [place] [address] Lab Orders Social History Tobacco Use Types Packs/Day Years Used Date Smoking Tobacco: Never Passive Smoke Exposure: Never Smokeless Tobacco: Never Alcohol Use Standard Drinks/Week Comments Never 0 (1 standard drink = 0.6 oz pur e alcohol) PHQ-2 Answer Date Recorded PHQ-2 score 0 10/22/2023 Area Deprivation Index Answer Date Emery rded National Score (1-100), lower number is lower ri 86 10/17/2022 State Score (1-10), lower number is lower risk 8 10/17/2022 Data from: https://www.neighborhoodatlas.medicine.[facility]/. Last address used for calculation Dayne LUEVANO [...] Assessment Author No 08/31/2014 9:10 AM EDT [place], [place] lie * Are you blind or do you have serious difficulty seeing, even when wearing glasses? Answer Date of Assessment Author No 08/31/2014 9:10 AM EDT [place] * Do you have serious difficulty walking or climbing stairs? Answer Date of Assessment Author No 08/31/2014 9:10 AM EDT [place] * Do you have difficulty dressing or bathing? Answer Date of Assessment Author No 08/31/2014 9:10 AM EDT [place] * Because of a physical, mental, or emotional condition, do you have difficulty doing errands alone such as visiting a doctor's office or shopping? Answer Date of Assessment Author No 08/31/2014 9:10 AM EDT [place] documented as of this encounter Mental Status * Because of a physical, mental, or emotional condition, do you have serious difficulty concentrating, remembering, or making decisions? Answer Entry Date Author No 08/31/2014 9:10 AM EDT [place] documented in this encounter Miscellaneous Notes * Telephone Encounter - Lucy Murcia MA - 10/06/2024 9:[address] labs if needed for appt on 10/13. Lucy Murcia MA documented in this encounter Plan of Treatment Upcoming Encounters Date Type Department Care Team (Latest Contact Info) Description 10/13/2025 10:00 AM EDT Office Visit [facility] [address] [place] [address] 1 year follow up with lab 10/13/2025 10:20 AM EDT Visit (SP) Office Hematology/Oncology [address] [place] [address] Israel Dover MD [address] [place] [address] 1 year follow up with lab documented as of this encounter Results * LACTATE DEHYDROGENASE (10/13/2024 9:04 AM EDT) [facility] LD 171 135 - 225 U/L 10/13/2024 9:31 AM EDT [facility] Comment: Hemolysis present. The origin [...] 10/13/2024 9:04 AM EDT us Bisi Dye APRN.[facility] Final Re sult [facility] [address] [place] [address] * (ABNORMAL) COMPREHENSIVE METABOLIC PANEL (10/13/2024 9:04 AM EDT) [facility] Protein, Total 6.6 6.3 - 8.0 g/dL 10/13/2024 9:32 AM EDT [facility] Albumin 4.5 3.9 - 4.9 g/dL 10/13/2024 9:32 AM EDT [facility] Calcium, Total 9.5 8.5 - 10.2 mg/dL 10/13/2024 9:32 AM [facility] Bilirubin, Total 1.0 0.2 - 1.3 mg/dL 10/13/2024 9:32 AM [facility] Alkaline Phosphatase 78 38 - 113 U/L 10/13/2024 9:32 AM [facility] AST 19 14 - 40 U/L 10/13/2024 9:32 AM [facility] ALT 19 10 - 54 U/L 10/13/2024 9:32 AM [facility] Glucose 107(H) 74 - 99 mg/dL 10/13/2024 9:32 AM [facility] Comment: The [place] [employer] (ADA) provides guidance for cutoff [...] Standards of Medical Care in Diabetes 2016, [place] [employer]. Diabetes Care. 2016.39(Suppl 1). BUN 19 9 - 24 mg/dL 10/13/2024 9:32 AM [facility] Creatinine 1.03 0.73 - 1.22 mg/dL 10/13/2024 9:32 AM [facility] Sodium 142 136 - 144 mmol/L 10/13/2024 9:32 AM [facility] Potassium 4.3 3.7 - 5.1 mmol/L 10/13/2024 9:32 AM [facility] Chloride 106 98 - 107 mmol/L 10/13/2024 9:32 AM [facility] CO2 28 22 - 30 mmol/L 10/13/2024 9:32 AM EDT [facility] Anion Gap 8 8 - 15 mmol/L 10/13/2024 9:32 AM EDT [facility] Estimated Glomerular Filtration Rate 76 >=60 mL/min/1. 73m 10/13/2024 9:32 AM EDT [facility] Comment:Estimated Glomerular Filtration Rate (eGFR) [...] 10/13/2024 9:04 AM EDT us Bisi Dye [employer].[facility] Final Re sult [facility] [address] [place] [id number] * (ABNORMAL) COMPLETE BLOOD COUNT AND DIFFERENTIAL (10/13/2024 9:04 AM EDT) WBC 15.57(H) 3.70 - 11.00 k/uL 10/13/2024 6:36 PM EDT [facility] RBC 4.47 4.20 - 6.00 m/uL 10/13/2024 6:36 PM EDT [facility] Hemoglobin 13.9 13.0 - 17.0 g/dL 10/13/2024 6:36 PM EDT [facility] Hematocrit 42.7 39.0 - 51.0 % 10/13/2024 6:36 PM EDT [facility] MCV 95.5 80.0 - 100.0 fL 10/13/2024 6:36 PM EDT [facility] MCH 31.1 26.0 - 34.0 pg 10/13/2024 6:36 PM EDT [facility] MCHC 32.6 30.5 - 36.0 g/dL 10/13/2024 6:36 PM EDT [facility] RDW-CV 13.0 11.5 - 15.0 % 10/13/2024 6:36 PM EDT [facility] Platelet Count 207 150 - 400 k/uL 10/13/2024 6:36 PM EDT [facility] MPV 10.6 9.0 - 12.7 fL 10/13/2024 6:36 PM EDT [facility] NRBC 0.0 /100 WBC 10/13/2024 6:36 PM EDT [facility] Absolute nRBC <0.01 <0.01 k/uL 10/13/2024 6:36 PM EDT [facility] Neutrophils % 6.0 % 10/13/2024 6:36 PM EDT [facility] Abs Neut (Segs + Bands) 0.93(L) 1.45 - 7.50 k/uL 10/13/2024 6:36 PM EDT [facility] Lymphocytes % 87.0 % 10/13/2024 6:36 PM EDT [facility] Abs Lymph (Normal + Reactive) 13.55(H) 1.00 - 4.00 k/uL 10/13/2024 6:36 PM EDT [facility] Monocytes % 2.0 % 10/13/2024 6:36 PM EDT [facility] Abs Mcduffie 0.31 <0.87 k/uL 10/13/2024 6:36 PM EDT [facility] Eosin% 4.0 % 10/13/2024 6:36 PM EDT [facility] Abs Eosin 0.62(H) <0.46 k/uL 10/13/2024 6:36 PM EDT [facility] Basophils % 1.0 % 10/13/2024 6:36 PM EDT [facility] Abs Baso 0.16(H) <0.11 k/uL 10/13/2024 6:36 PM EDT [facility] Platelet Estimate Adequate 10/13/2024 6:36 PM EDT [facility] Red Cell Morph Reviewed: unremarkable 10/13/2024 6:36 PM EDT [facility] Diff Type Manual 10/13/2024 6:36 PM EDT [facility] Blood BLOOD SPECIMEN / Unknown Venipuncture / Unknown 10/13/2024 9:04 AM EDT 10/13/2024 9:04 AM EDT Narrative [facility] - 10/13/2024 6:36 PM EDT This is an appended report. These results have been appended to a previously verified report. us Bisi Dye [employer].[facility] Final Re sult [facility] [address] [place] [address], [facility] [address] [place] [phone] documented in this encounter Visit Diagnoses Diagnosis CLL (chronic lymphocytic leukemia) (HCC)- Primary Chronic lymphoid leukemia, without mention of having achieved remission documented in this encounter Care Teams Integration Technician Relationship Specialty Start Date End Date Ronald Pollard DO PCP - General Internal Medicine 05/02/11 documented as of this encounter
[2024-10-20 13:31] LABS: Hemoglobin 14.1 g/dL (14.0-18.0)
[2024-10-20 14:08] LABS: Albumin Level 4.0 g/dL (3.4-5.0)
== END 2024-10-20 13:00 | disposition home or self-care (01) ==
LOC: LAB 13:00
PROVIDERS: PCP Internal Medicine; Visit Provider Internal Medicine
DX: M81.0 Age-related osteoporosis without current pathological fracture (principal); Z79.899 Other long term (current) drug therapy
CPT/HCPCS: 36415; 80323; 82042; 82306; 83036; 85018; 87081

== ENCOUNTER 2024-11-22 09:32 | Outpatient (OUT) | payer MEDICARE, OTHER, SELFPAY ==
--- OUTSIDE RECORDS SUMMARY | 2024-11-22 09:41 | XMS_ITS | CCD ---
Author Organization [facility] CliniSysd Care Team Providers Care Oiler Bander Name Role Phone Marcin Preciado Unavailable Unavailable Jesse Alberts Unavailable DO Ronald Pollard Primary Care Provider MD Jesse Alberts Attending Provider Ronald Pollard Unavailable SILVANA, DR HART Attending Unavailable BALL, DR HART Consulting Unavailable BALL, DR HART Primary Care Unavailable BALL, DR HART Admitting Unavailable BALL, DR HART Consulting Unavailable BALL, DR HART Primary Care Unavailable BALL, DR HART Admitting Unavailable BALL, DR HART Attending Unavailable BALL, DR HART Attending Unavailable BALL, DR HART Consulting Unavailable BALL, DR HART Primary Care Unavailable BALL, DR HART Admitting Unavailable BALL, DR HART Primary Care Unavailable BALL, DR HART Admitting Unavailable BALL, DR HART Attending Unavailable Ronald oPllard DO Primary Care Provider Ronald Pollard DO Primary Care Provider DO Ronald Pollard Primary Care Provider [phone] DO Ronald Pollard Attending Provider VLAD JUÁREZ Attending Unavailable VLAD JUÁREZ Attending Unavailable VLAD JUÁREZ Attending Unavailable Ronald Pollard MD Primary Care Provider Ronald Pollard DO Primary Care Provider Jesse Alberts MD Attending Provider Ronald Pollard DO Primary Care Provider Jesse Alberts MD Attending Provider Juancarlos HERNANDEZ Attending Unavailable DAILY, WILVER Referring Unavailable RONALD POLLARD Primary Care Unavailable WILVER AMBROSIO Referring Unavailable ISRAEL MARAVILLA Attending Unavailable RONALD POLLARD Primary Care Unavailable KARAMLOU, WILVER Referring Unavailable BALL, RONALD E Primary Care Unavailable SILVANA, RONALD E Primary Care Unavailable Juancarlos HERNANDEZ Attending Unavailable Juancarlos HERNANDEZ Referring Unavailable Adeel Cardona Attending Provider [phone] Crow Box MD Attending Provider [phone] Silvana Ronald Primary Care Unavailable Crow Box II Admitting UnavailCrow Tolliver II Attending Unavailabl e Jesse Alberts Attending Unavailable Silvana, Ronald Primary Care Unavailable Jesse Alberts Admitting Unavailable Silvana, Ronald Primary Care Unavailable Jesse Alberts Admitting Unavailable Jesse Alberts Attending Unavailable Silvana, Ronald Admitting Unavailable Ball, Ronald Primary Care Unavailable Silvana, Ronald Attending Unavailable Ronald Pollard DO Primary Care Provider [phone] Jesse Alberts MD Attending Provider [phone] Ronald Pollard DO Attending Provider [phone] Medications Current Medications Medication Drug Class(es) Dates Sig (Normalized) Sig (Original) acetaminophen 325 mg oral tablet (7 sources) take 1 tablet by mouth every four hours Tylenol 325 MG 1 tablet as needed Orally every 4 hrs Active atorvastatin 20 mg oral tablet (20 sources) HMG-CoA Reductase Inhibitor Start: 08-29-2023 Atorvastatin 20 mg tablet Active 0 .ROUTE .COMPLEX August 29, 2023 8:42am TAKE 1 TABLET DAILY IN THE EVENING Complies with drug therapy Start: 08-29-2023 End: 08-29-2023 take 1 tablet by mouth once daily Atorvastatin 20 mg tablet Discontinued 20 MG PO Daily August 29, 2023 12:00am August 29, 2023 8:42am Start: 03-28-2020 [id number] Medicat ion atorvastatin 80 mg tablet Lipitor 80 mg 03/28/2020 Active (Outside) take 1 tablet by marianna th once daily atorvastatin (LIPITOR) 10 mg tablet Take 10 mg by mouth once daily. Active Atorvastatin Herb cium 20 mg TAKE 1 TABLET DAILY IN THE EVENING Active Comment on above: Take 10 mg by mouth once daily. gabapentin 300 mg oral capsule (7 sources) Anti-epileptic Agent take 1 capsule by mouth every twenty-four hours Gabapentin 300 MG 1 capsule Orally Once a day for 90 days Active meloxicam 15 mg oral tablet (20 sources) Nonsteroidal Anti-inflammatory Drug Start: Meloxicam 15 mg tablet Active 0 .ROUTE .COMPLEX December 29, 2023 1:38pm TAKE 1 TABLET DAILY Complies with drug therapy Start: 12-29-2023 Meloxicam 15 m g tablet Active 0 .ROUTE .COMPLEX December 29, 2023 1:38pm TAKE 1 TABLET DAILY Start: 12-29-2023 Meloxicam 15 m g tablet Active 0 .ROUTE .COMPLEX December 29, 2023 12:38pm TAKE 1 TABLET DAILY Start: 11-12-2021 End: 12-29-2023 take 1 tablet by mouth once daily Meloxicam 15 mg tablet Discontinued 15 MG PO Daily November 05, 2023 12:00am December 29, 2023 1:38pm omeprazole 40 mg delayed release oral capsule (3 sources) Proton Pump Inhibitor Start: 08-25-2019 take 1 capsule by mouth before mealtime omeprazole (PriLOSEC) [address] capsule Take 40 mg by mouth in the morning. Take before meals. 08/25/2019 Active sildenafil 100 mg oral tablet (20 sources) Phosphodiesterase 5 Inhibitor Start: 11-13-2024 take 1 tablet by mouth once daily as needed Sildenafil 100 mg tablet Active 0 .ROUTE .COMPLEX November 13, 2024 8:24am TAKE 1 TABLET BY MOUTH DAILY NEEDED FOR SEXUAL ACTIVITY ADMINISTER 30 MINUTES TO 4 HOURS BEFORE ACTIVITY Complies with drug therapy Start: 11-05-2023 End: 11-05-2023 take 1 tablet by mouth once daily as needed Sildenafil 100 mg tablet Discontinued 100 MG PO Daily as needed November 05, 2023 12:00am November 05, 2023 10:35am Start: 11-05-2023 End: 11-13-2024 Sildenafil 100 mg tablet Discontinued 100 MG PO Daily as needed for sexual activity 09 13November 05, 2023 10:57am November 13, 2024 8:24am administer 30 minutes to 4 hours before activity take 1 tablet by marianna th once daily as needed Sildenafil Citrate 100 MG TAKE ONE TABLET BY MOUTH DAILY NEEDED FOR ERECTILE DYSFUNCTION for 6 Active traMADol hydrochloride 50 mg oral tablet (7 sources) Opioid Agonist Start: 08-04-2024 take 1 tablet by mouth twice daily as needed for pain Tramadol 50 mg tablet Active 50 MG PO Twice daily as needed for pain 60 August 04, 2024 12:00am Complies with drug therapy Problems Active Problems Problem Classification Problem Date Documented Date Episodic/Chronic Abdominal hernia (10 sources) Right inguinal hernia ; Translations: [Unilateral inguinal hernia, without obstruction or gangrene, not specified as recurrent] 11-05-2023 Episodic Acute bronchitis (3 sources) Acute bronchitis; Translations: [Acute bronchitis due to other specified organisms] Episodic Cancer of head and neck (20 sources) Malignant tumor of vocal cord; 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] Onset: 05-16-2019 Chronic Comment on above: Dx: 05/2019s/p radiat ion therapy Cancer of head and neck (4 sources) History of malignant neoplasm of larynx; Translations: [Personal history of malignant neoplasm of larynx] Onset: 10-13-2024 10-28-2023 Episodic Disorders of lipid metabolism (20 sources) Pure hypercholesterolemia; Translations: [Familial hypercholesterolemia] Onset: 02-20-2015 Chronic Heart valve disorders (1 source) Heart murmur; Translations: [Cardiac murmur, unspecified] 11-18-2024 Episodic Hyperplasia of prostate (6 sources) Lower urinary tract symptoms due to benign prostatic hypertrophy; Translations: [Benign prostatic hyperplasia with lower urinary tract symptoms] Onset: 02-20-2015 Chronic Leukemias (20 sources) Chronic lymphoid leukemia, disease; Translations: [Chronic lymphocytic leukemia of B-cell type not having achieved remission] Onset: 03-26-2012 Chronic Open wounds of extremities (1 source) Laceration without foreign body, left lower leg, subsequent encounter Episodic Open wounds of head; neck; and trunk (3 sources) Laceration of head; Translations: [Laceration without foreign body of other part of head, subsequent encounter] Episodic Osteoarthritis (20 sources) Localized, primary osteoarthritis of the pelvic region and thigh; Translations: [Unilateral primary osteoarthritis, right hip] Onset: 10-20-2024 Chronic Other aftercare (2 sources) Other correction (current) drug therapy; Translations: [OTH DETENTION CURRENT DRUG THERAPY] Onset: 07-04-2022 Episodic Other aftercare (1 source) Encounter for removal of sutures Episodic Other aftercare (1 source) Taking high risk medication; Translations: [Other property handler (current) drug therapy] 11-18-2024 Episodic Other circulatory disease (1 source) Elevated blood-pressure reading, without diagnosis of hypertension Episodic Other connective tissue disease (7 sources) Cramp in lower leg associated with rest; Translations: [Sleep related leg cramps] Chronic Other connective tissue disease (1 source) Hip joint prosthesis present; Translations: [Presence of right artificial hip joint] 10-16-2024 Chronic Other injuries and conditions due to external causes (1 source) Radiation sickness; Translations: [Radiation sickness, unspecified, initial encounter] 10-17-2022 Episodic Other injuries and conditions due to external causes (3 sources) History of fall; Translations: [History of falling] Episodic Other male genital disorders (16 sources) Male erectile dysfunction, unspecified; Translations: [Erectile dysfunction] 11-05-2023 Chronic Other nervous system disorders (20 sources) Chronic pain; Translations: [Other chronic pain] 08-04-2024 Chronic Other nervous system disorders (5 sources) Other chronic pain; Translations: [Other chronic pain] Onset: 01-22-2021 Resolved: 11-12-2021 Chronic Other non-epithelial cancer of skin (14 sources) 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; Translations: [Basal cell carcinoma of skin of ear and external auditory canal] Onset: 07-16-2015 Episodic Other non-traumatic joint disorders (11 sources) Pain in right hip joint; Translations: [Pain in right hip] Episodic Other non-traumatic joint disorders (3 sources) Joint pain; Translations: [Pain in unspecified joint] Episodic Other non-traumatic joint disorders (16 sources) Pain in right knee; Translations: [Right knee pain] Onset: 04-13-2024 04-13-2024 Episodic Other nutritional; endocrine; and metabolic disorders (1 source) Overweight Episodic Other nutritional; endocrine; and metabolic disorders (3 sources) Overweight; Translations: [Overweight] Episodic Other screening for suspected conditions (not mental disorders or infectious disease) (19 sources) Encounter for screening for malignant neoplasm of prostate; Translations: [Other specified abnormal findings of blood chemistry] Onset: 09-24-2021 Episodic Other screening for suspected conditions (not mental disorders or infectious disease) (1 source) No current problems or disability Onset: 04-10-2020 Other skin disorders (3 sources) Alopecia areata; Translations: [Alopecia areata, unspecified] Episodic Other upper respiratory infections (3 sources) Acute maxillary sinusitis; Translations: [Acute maxillary sinusitis, unspecified] Episodic Spondylosis; intervertebral disc disorders; other back problems (20 sources) Degeneration of intervertebral disc; Translations: [Other intervertebral disc degeneration, lumbar region] Onset: 01-22-2021 Resolved: 11-12-2021 Chronic Thyroid disorders (17 sources) Thyrotoxicosis, unspecified without thyrotoxic crisis or storm; Translations: [Thyrotoxicosis] Onset: 10-29-2021 Chronic Unclassified (3 sources) Exposure to acute respiratory syndrome coronavirus 2; Translations: [Contact with and (suspected) exposure to COVID-19] Unclassified (3 sources) M16.11 - Unilateral primary osteoarthritis, right hip Past or Other Problems Problem Classification Problem Date Documented Da te Episodic/Chronic Immunizations and screening for infectious disease (3 sources) Vaccination given; Translations: [Encounter for immunization] Onset: 02-20-2015 Episodic Other non-traumatic joint disorders (1 source) Pain in right hip Onset: 01-22-2021 Resolved: 01-22-2021 Episodic Other skin disorders (1 source) Alopecia areata, unspecified; Translations: [ALOPECIA AREATA UNSPECIFIED] Onset: 09-26-2021 Episodic Other upper respiratory disease (3 sources) Disorder of vocal cord; Translations: [Other diseases of vocal cords] Onset: 08-08-2022 08-08-2022 Episodic Other upper respiratory disease (3 sources) Hoarse; Translations: [Dysphonia] Onset: 08-08-2022 08-08-2022 Episodic Unclassified (1 source) Other low back pain M54.59 Onset: 11-12-2021 Resolved: 11-12-2021 Results Test Name Value Interpretation Reference Range Facility Glucose mean value [Mass/vol ume] in Blood Estimated from glycated hemoglobinOrdered By: Crow Box on 10-20-2024 Average glucose Estimated from glycated hemoglobin (Bld) [Mass/Vol] 100 mg/dL [facility] Hemoglobin A1c percentageOrd ered By: Crow Box on 10-20-2024 HbA1c (Bld) [Mass fraction] 5.1 % 4.5-6.2 [facility] Comment on above: ADA RECOMMENDED LIMI T 4.0 - 6.0ADA THERAPEUTIC TARGET < 7.0ACTION SUGGESTED> 7.0 Hemoglobin [Mass/volume] in BloodOrdered By: Crow Box on 10-20-2024 Hemoglobin (Bld) [Mass/Vol] 14.1 g/dL 14.0-18.0 [facility] Laboratory - Chemistry and C hemistry - challengeOrdered By: Crow Box on 10-20-2024 Albumin [Mass/Vol] 4.0 g/dL 3.4-5.0 [facility] No Panel InformationOrdered By: Crow Box on 10-20-2024 25-Hydroxy Vitamin D Total 43.8 ng/mL [facility] Comment on above: <20 ng/mL Vit D defi cient20-<30 ng/mL Vit D [id number] ng/mL Vit D sufficient>100 ng/mL Potential Toxicity No Panel InformationOrdered By: Ronald Pollard on 10-20-2024 Miscellaneous Test COMMENT . [facility] Comment on above: Test Ordered: [id number] Nicotine and Metabolite, QuantNicotine <1.0 ng/mL Reference Range: .This test was developed and its performance characteristicsdetermined by [employer]. It has not been cleared orapproved by the Food and Drug Administration.Nicotine levels greater than 2.0 are consistent with theuse of tobacco or tobacco cessation products.Cotinine <1.0 ng/mL Reference Range: .This test was developed and its performance characteristicsdetermined by [employer]. It has not been cleared orapproved by the Food and Drug Administration.Cotinine levels greater than 20.0 are consistent with theuse of tobacco or tobacco cessation products.Performed at: [facility] Lab[address] [id number] Director: Day Villarreal MD, Phone: [phone] at: [address] [id number] Director: Demar Dos Santos PhD, Phone: [phone] X-ray reportOrdered By: Tereso Billy on 10-20-2024 Study report [facility] [address] [place] [address] XRay Report Signed Patient: Kerwin Avila MR#: [id number] : 1950 Acct:[id number] Age/Sex: 74 / M ADM Date: 5 Loc: SOXD Room: Type: REG CLI Attending Dr: Crow Box II, MD Copies to: Crow Box MD~ Ordering Provider: Crow Box MD Date of Service: 10/20/24 XR/XR hip RT min 2V(w/wo pelvis)*: M16.11 - Unilateral primary osteoarthritis, right hip XR hip RT min 2V(w/wo pelvis)* 10/20/2024 10:08 AM SIGNS AND SYMPTOMS: Chronic right hip pain laterally PROTOCOL: Frontal radiograph the pelvis with crosstable lateral view of the right hip COMPARISON: 03/25/2024 FINDINGS: There is severe narrowing of the right hip joint space with bony remodeling of the articular surface of the femoral head. Subcortical cystic changes noted along both sides of the joint space. There is mild narrowing of the left hip joint space. There is no fracture or dislocation. Degenerative changes are partly visualized in the lumbar spine. XR/XR hip RT min 2V(w/wo pelvis)* IMPRESSION: Worsening severe degenerative changes of the right hip joint space with worsening remodeling of the articular surface of the femoral head. Impression dictated by: Tereso Billy M.D. 10/20/2024 4:46 PM Dictation Location: [place] [address] Transcribed By: [facility] 10/20/24 164 Dictated By: Tereso Billy II, MD 10/20/241643 Signed By: 10/20/241645 [facility] Work Phone: XR hip RT min 2V(w/wo pelvis )*on 10-20-2024 XR hip RT min 2V(w/wo pelvis)* [facility] [address] [place] [address] XRay Report Signed Patient: Kerwin Avila MR#: [id number] : 1950 Acct:[id number] Age/Sex: 74 / M ADM Date: 10/20/24 Loc: [facility] Room: Type: REG CLI Attending Dr: Crow Box II, MD Copies to: Crow Box MD Ordering Provider: Crow Box MD Date of Service: 10/20/24 XR/XR hip RT min 2V(w/wo pelvis)*: M16.11 - Unilateral primary osteoarthritis, right hip XR hip RT min 2V(w/wo pelvis)* 10/20/2024 10:08 AM SIGNS AND SYMPTOMS: Chronic right hip pain laterally PROTOCOL: Frontal radiograph the pelvis with crosstable lateral view of the right hip COMPARISON: 03/25/2024 FINDINGS: There is severe narrowing of the right hip joint space with bony remodeling of the articular surface of the femoral head. Subcortical cystic changes noted along both sides of the joint space. There is mild narrowing of the left hip joint space. There is no fracture or dislocation. Degenerative changes are partly visualized in the lumbar spine. XR/XR hip RT min 2V(w/wo pelvis)* IMPRESSION: Worsening severe degenerative changes of the right hip joint space with worsening remodeling of the articular surface of the femoral head. Impression dictated by: Tereso Billy M.D. 10/20/2024 4:46 PM Dictation Location: [place] [address] Transcribed By: [facility] 10/20/24 1646 Dictated By: Tereso Billy II, MD 10/20/24 1644 Signed By: 10/20/24 1646 Normal [facility] Basophils Auto (Bld) [#/Vol] Ordered By: Adeel Crespo on 10-13-2024 Basophils (Bld) [#/Vol] 0.16 10*3/uL High <0.11 [facility] Basophils/100 WBC Auto (Bld) Ordered By: Adeel Crespo on 10-13-2024 Basophils/100 WBC (Bld) 1.0 % [facility] Blood manual differential co mment interpretation narrativeOrdered By: Adeel Crespo on 10-13-2024 Manual differential comment Vick (Bld) [Interp] Manual [facility] CBC W Auto Differential pane l (Bld)on 10-13-2024 Basophils (Bld) [#/Vol] 0.16 10*3/uL High <0.11 [facility] Comment on above: Order Comment: Speci men Type: BLOOD SPECIMEN Ordering Facility: [facility] Address: [address] [place] [address] [place] [id number] Performed By: #### 5 7021-8 #### [facility] CLIA [id number] [address] [place] [address] LAB CLIA [id number] [address] [place] [address] [place] Basophils/100 WBC (Bld) 1.0 % Normal [facility] Comment on above: Order Comment: Speci men Type: BLOOD SPECIMEN Ordering Facility: [facility] Address: [address] [place] [address] Performed By: #### 5 7021-8 #### [facility] CLIA [id number] [address] [place] [address] LAB CLIA [id number] [address] [place] [address] [place] Differential cell count method Nom (Bld) Manual Normal [facility] Comment on above: Order Comment: Speci men Type: BLOOD SPECIMEN Ordering Facility: [facility] Address: [address] [place] [address] Performed By: #### 5 7021-8 #### [facility] CLIA [id number] [address] [place] [address] LAB CLIA [id number] [address] [place] [address] [place] Eosinophils (Bld) [#/Vol] 0.62 10*3/uL High <0.46 [facility] Comment on above: Order Comment: Speci men Type: BLOOD SPECIMEN Ordering Facility: [facility] Address: [address] [place] [address] Performed By: #### 5 7021-8 #### [facility] CLIA [id number] [address] [place] [address] LAB CLIA [id number] [address] [place] [address] [place] Eosinophils/100 WBC (Bld) 4.0 % Normal [facility] Comment on above: Order Comment: Speci men Type: BLOOD SPECIMEN Ordering Facility: [facility] Address: [address] [place] [address] Performed By: #### 5 7021-8 #### [facility] CLIA [id number] [address] [place] [address] LAB CLIA [id number] [address] [place] [address] [place] Erythrocyte distribution width (RBC) [Ratio] 13.0 % Normal 11.5-15.0 [facility] Comment on above: Order Comment: Speci men Type: BLOOD SPECIMEN Ordering Facility: [facility] Address: [address] [place] [address] Performed By: #### 5 7021-8 #### [facility] CLIA [id number] [address] [place] [address] LAB CLIA [id number] [address] [place] [address] [place] Hematocrit (Bld) [Volume fraction] 42.7 % Normal 39.0-51.0 [facility] Comment on above: Order Comment: Speci men Type: BLOOD SPECIMEN Ordering Facility: [facility] Address: [address] [place] [address] Performed By: #### 5 7021-8 #### [facility] CLIA [id number] [address] [place] [address] LAB CLIA [id number] [address] [place] [address] [place] Hemoglobin (Bld) [Mass/Vol] 13.9 g/dL Normal 13.0-17.0 [facility] Comment on above: Order Comment: Speci men Type: BLOOD SPECIMEN Ordering Facility: [facility] Address: [address] [place] [address] Performed By: #### 5 7021-8 #### [facility] CLIA [id number] [address] LAB CLIA [id number] [address] [place], [place] [address] [place] Lymphocytes (Bld) [#/Vol] 13.55 10*3/uL High 1.00-4.00 [facility] Comment on above: Order Comment: Speci men Type: BLOOD SPECIMEN Ordering Facility: [facility] Address: [address] [place] [address] Performed By: #### 5 7021-8 #### [facility] CLIA [id number] [address] [place] [address] LAB CLIA [id number] [address] [place] [address] [place] Lymphocytes/100 WBC (Bld) 87.0 % Normal [facility] Comment on above: Order Comment: Speci men Type: BLOOD SPECIMEN Ordering Facility: [facility] Address: [address] [place] [address] Performed By: #### 5 7021-8 #### [facility] CLIA [id number] [address] [place] [address] LAB CLIA [id number] [address] [place] [address] [place] MCH (RBC) [Entitic mass] 31.1 pg Normal 26.0-34.0 [facility] Comment on above: Order Comment: Speci men Type: BLOOD SPECIMEN Ordering Facility: [facility] Address: [address] [place] [address] Performed By: #### 5 7021-8 #### [facility] CLIA [id number] [address] [place] [address] LAB CLIA [id number] [address] [place] [address] [place] MCHC (RBC) [Mass/Vol] 32.6 g/dL Normal 30.5-36.0 [facility] Comment on above: Order Comment: Speci men Type: BLOOD SPECIMEN Ordering Facility: [facility] Address: [address] [place] [address] Performed By: #### 5 7021-8 #### [facility] CLIA [id number] [address] [place] [address] LAB CLIA [id number] [address] [place] [address] [place] MCV (RBC) [Entitic vol] 95.5 fL Normal 80.0-100.0 [facility] Comment on above: Order Comment: Speci men Type: BLOOD SPECIMEN Ordering Facility: [facility] Address: [address] [place] [address] Performed By: #### 5 7021-8 #### [facility] CLIA [id number] [address] [place] [address] LAB CLIA [id number] [address] [place] [address] [place] Monocytes (Bld) [#/Vol] 0.31 10*3/uL Normal <0.87 [facility] Comment on above: Order Comment: Speci men Type: BLOOD SPECIMEN Ordering Facility: [facility] Address: [address] [place] [address] Performed By: #### 5 7021-8 #### [facility] CLIA [id number] [address] [place] [address] LAB CLIA [id number] [address] [place] [address] [place] Monocytes/100 WBC (Bld) 2.0 % Normal [facility] Comment on above: Order Comment: Speci men Type: BLOOD SPECIMEN Ordering Facility: [facility] Address: [address] [place] [address] Performed By: #### 5 7021-8 #### [facility] CLIA [id number] [address] [place] [address] LAB CLIA [id number] [address] [place], [place] [address] [place] Neutrophils (Bld) [#/Vol] 0.93 10*3/uL Low 1.45-7.50 [facility] Comment on above: Order Comment: Speci men Type: BLOOD SPECIMEN Ordering Facility: [facility] Address: [address] [place] [address] Performed By: #### 5 7021-8 #### [facility] CLIA [id number] [address] [place] [address] LAB CLIA [id number] [address] [place] [address] [place] Neutrophils/100 WBC (Bld) 6.0 % Normal [facility] Comment on above: Order Comment: Speci men Type: BLOOD SPECIMEN Ordering Facility: [facility] Address: [address] [place] [address] Performed By: #### 5 7021-8 #### [facility] CLIA [id number] [address] [place] [address] LAB CLIA [id number] [address] [place] [address] [place] Nucleated RBC (Bld) [#/Vol] 10*3/uL Normal <0.01 [facility] Comment on above: Order Comment: Speci men Type: BLOOD SPECIMEN Ordering Facility: [facility] Address: [address] [place] [address] Performed By: #### 5 7021-8 #### [facility] CLIA [id number] [address] [place] [address] LAB CLIA [id number] [address] [place] [address] [place] Nucleated RBC/100 WBC (Bld) [Ratio] 0.0 /100 WBC Normal [facility] Comment on above: Order Comment: Speci men Type: BLOOD SPECIMEN Ordering Facility: [facility] Address: [address] [place] [address] Performed By: #### 5 7021-8 #### [facility] CLIA [id number] [address] [place] [address] LAB CLIA [id number] [address] [place], [place] [address] [place] Platelet mean volume (Bld) [Entitic vol] 10.6 fL Normal 9.0-12.7 [facility] Comment on above: Order Comment: Speci men Type: BLOOD SPECIMEN Ordering Facility: [facility] Address: [address] [place] [address] Performed By: #### 5 7021-8 #### [facility] CLIA [id number] [address] [place] [address] LAB CLIA [id number] [address] [place] [address] [place] Platelets (Bld) [#/Vol] 207 10*3/uL Normal 150-400 [facility] Comment on above: Order Comment: Speci men Type: BLOOD SPECIMEN Ordering Facility: [facility] Address: [address] [place] [address] Performed By: #### 5 7021-8 #### [facility] CLIA [id number] [address] [place] [address] LAB CLIA [id number] [address] [place], [place] [address] [place] Platelets Estimate (Bld) [#/Vol] Adequate Normal [facility] Comment on above: Order Comment: Speci men Type: BLOOD SPECIMEN Ordering Facility: [facility] Address: [address] [place] [address] Performed By: #### 5 7021-8 #### [facility] CLIA [id number] [address] [place] [address] LAB CLIA [id number] [address] [place], [place] [address] [place] RBC (Bld) [#/Vol] 4.47 10*6/uL Normal 4.20-6.00 [facility] Comment on above: Order Comment: Speci men Type: BLOOD SPECIMEN Ordering Facility: [facility] Address: [address] [place] [address] Performed By: #### 5 7021-8 #### [facility] CLIA [id number] [address] [place] [address] LAB CLIA [id number] [address] [place] [address] [place] RED CELL MORPH Reviewed: unremarkable Normal [facility] Comment on above: Order Comment: Speci men Type: BLOOD SPECIMEN Ordering Facility: [facility] Address: [address] [place] [address] Performed By: #### 5 7021-8 #### [facility] CLIA [id number] [address] [place] [address] LAB CLIA [id number] [address] [place] [address] [place] WBC (Bld) [#/Vol] 15.57 10*3/uL High 3.70-11.00 [facility] Comment on above: Order Comment: Speci men Type: BLOOD SPECIMEN Ordering Facility: [facility] Address: [address] [place] [address] Performed By: #### 5 7021-8 #### [facility] CLIA [id number] [address] [place] [address] LAB CLIA [id number] [address] [place] [address] [place] CNOVon 10-13-2024 CNOV Office Visit (RADTSA ) KERWIN AVILA ([id number]) 1950 M Date Time Provider Department 10/13/24 9:45 AM Juancarlos HERNANDEZ During your visit today, we recorded the following information about you: Juancarlos Hernandez MD 10/13/2024 10:18 AM Signed Radiation Oncology - Follow Up Note PATIENT [...] without significant findings. LABORATORY: Latest Reference Range AND Units 06/08/20 09:14 10/03/20 11:31 10/10/22 08:45 [...] ) BSA 2.11 BMI 27.35 Temp 36.6 ?C (97.8 ?F) Pulse 66 Resp 16 BP 138/77 SpO2 [...] He has continued close follow-up with Dr. Juárez. He is now 5 years out from treatment. No postradiation issues. Plan to see patient back on an as needed basis. Your 2. Chronic lymphocytic leukemia diagnosed Clinical stage I disease. Current therapy is observation an is seeing Dr. Maravilla. Signed by: Juancarlos Hernandez MD cc: Ronald Pollard MD ([facility]) Dr. Juárez Portions of the above note extracted and edited from previous visit as well as active information included in the EMR. Referring Provider: WILVER AMBROSIO [[id number]] Allergies As of Date: 10/13/2024 (No Known Allergies) Date Reviewed: 10/13/2024 Reviewed by: Ely Dobbins RN - Fully Assessed Reason for Visit: Head and Neck Cancer [551] Primary Visit Diagnosis:History of cancer of larynx [Z85.21] Prescriptions as of 10/13/2024 - traMADol (ULTRAM) 50 mg tablet Take 50 mg by mouth two times a day as needed. - meloxicam (MOBIC) 15 mg tablet - atorvastatin (LIPITOR) 10 mg tablet Take 10 mg by mouth once daily. Problem List As Of Date 10/13/2024 Noted Resolved CLL (chronic lymphocytic leukemia) [C91.10] 03/26/2012 Level of Service: OFFICE/OUTPATIENT ESTABLISHED LOW [facility] 20 MIN [24088] Disposition: Return if symptoms worsen or fail to improve. Follow-up and Disposition History for Encounter Date Provider Department Center 10/13/2024 [id number] HERNANDEZ TIFFANIE Del Real Encounter Status:Closed by Juancarlos HERNANDEZ on 10/13/24 [facility] CNOVSPon 10-13-2024 CNOVSP Visit (SP) Office (H EMASA) LORENAKERWIN Tom ([id number]) 1950 M Date Time Provider Department 10/13/24 9:20 AM ISRAEL MARAVILLA During your visit today, we recorded the following information about you: Temperature Pulse Respiration Blood pressure 97.8 degrees 66/minute 16/minute 138/77 Weight Height 88.9 kg 1.803 m Israel Maravilla MD 10/16/2024 10:15 AM Signed NAME: Kerwin Avila CLINIC NO.: [id number] DATE OF SERVICE: October 13, 2024 (Stanislaw) Some elements in this clinic note that are critical to medical decision making have been carefully reviewed and included from a prior clinic note dated: October 07, 2023 (Daily) Referring Provider: Wilver Ambrosio Additional Clinicians involved in Kerwin Avila's care: Allyson Hernandez DIAGNOSIS: CLL CASE SUMMARY [...] labs show WBC count of 15,000, hemoglobin 13.9, and platelets 207, indicating stable bone marrow function. [...] to chronic pain unrelieved by previous injections. - CASE HISTORY: Reverse Chronological Order 08/16/19-09/23/19 Radiation : AREA TREATED: Larynx 6,300cGy in 28 fractions, 2 Christian, 3D Conformal, 6MV with daily CBCT TOTAL:6,300cGy in 28 fractions ELAPSED TIME: 38 days. - HPI: Updated Visit, October 16, 2024: transition of care On 2019, patient completed treatment for laryngeal cancer and has been following up with Dr. Garces. Patient was diagnosed with Gallegos stage 0 chronic lymphocytic leukemia (CLL) over a year ago, characterized by elevated lymphocyte counts. Recent labs from today show a WBC count of 15,000 cells/?L, hemoglobin at 13.9 g/dL, and platelets at 207,000/?L, indicating stable hematologic parameters. Patient denies any significant weight loss, night sweats, or noticeable lymphadenopathy. He is scheduled for a hip replacement next week due to chronic hip pain that has not responded to recent injections. He also has an inguinal hernia that is not currently causing symptoms. (Today) CBC: - WBC: 15 x103/?L - Hemoglobin: 13.9 g/dL - Platelets: 207 x103/?L - REVIEW OF SYSTEMS Per HPI and otherwise negative by full review of organ systems. - ECOG PERFORMANCE STATUS: 0 PHYSICAL EXAMINATION: Vitals: BP 138/77 Pulse 66 Temp (Src) 97.8 (Temporal) Resp 16 Ht 5' 10.984 (1.80m) Wt 195 lb 15.8 oz (88.9kg) SpO2 96% BMI 27.35 kg/(m2). Body surface area is 2.11 meters squared. Exam limited to gross visualization where appropriate. Gen.: This is an age-appropriate patient in no acute distress. Head: Appears atraumatic with no visible lesions. Eyes: Pupils equally round and reactive to light, extraocular muscles are intact. Neck: Supple. Respiratory: Appears to be respiring comfortably. Neurologic: Nonfocal to gross visualization. Alert and oriented ?3. Psychiatric: No evidence of inappropriate anxiety or depression. Skin: Visible areas of skin without rash, lesions, wounds or petechiae. Lymphatic: No lymphadenopathy in suboccipital, submandibular, supraclavicular, epitrochlear, axillary, or inguinal regions Abdomen: Soft, non-tender, non-distended, no masses palpable, no hepatosplenomegaly (more content not included)... Normal [facility] Comprehensive metabolic 2000 panelon 10-13-2024 Albumin [Mass/Vol] 4.5 g/dL Normal 3.9-4.9 [facility] Comment on above: Order Comment: Speci men Type: BLOOD SPECIMEN Ordering Facility: [facility] Address: [address] [place] [address] Performed By: #### 2 4323-8, 2531-0 #### [facility] CLIA [id number] [address] [place] [address] ALP [Catalytic activity/Vol] 78 U/L Normal 38-113 [facility] Comment on above: Order Comment: Speci men Type: BLOOD SPECIMEN Ordering Facility: [facility] Address: [address] [place] [address] Performed By: #### 2 4323-8, 2531-0 #### [facility] CLIA [id number] [address] [place] [address] ALT [Catalytic activity/Vol] 19 U/L Normal 10-54 [facility] Comment on above: Order Comment: Speci men Type: BLOOD SPECIMEN Ordering Facility: [facility] Address: [address] [place] [address] Performed By: #### 2 4323-8, 2532-0 #### [facility] CLIA [id number] [address] [place] [address] Anion gap [Moles/Vol] 8 mmol/L Normal 8-15 [facility] Comment on above: Order Comment: Speci men Type: BLOOD SPECIMEN Ordering Facility: [facility] Address: [address] [place] [address] Performed By: #### 2 4323-8, 2532-0 #### [facility] CLIA [id number] [address] [place] [address] AST [Catalytic activity/Vol] 19 U/L Normal 14-40 [facility] Comment on above: Order Comment: Speci men Type: BLOOD SPECIMEN Ordering Facility: [facility] Address: [address] [place], [place] [address] Performed By: #### 2 4323-8, 2532-0 #### [facility] CLIA [id number] [address] [place] [address] Bilirubin [Mass/Vol] 1.0 mg/dL Normal 0.2-1.3 [facility] Comment on above: Order Comment: Speci men Type: BLOOD SPECIMEN Ordering Facility: [facility] Address: [address] [place], [place] [address] Performed By: #### 2 4323-8, 2-0 #### [facility] CLIA [id number] [address] [place] [address] Calcium [Mass/Vol] 9.5 mg/dL Normal 8.5-10.2 [facility] Comment on above: Order Comment: Speci men Type: BLOOD SPECIMEN Ordering Facility: [facility] Address: [address] [place] [address] Performed By: #### 2 4323-8, 2532-0 #### [facility] CLIA [id number] [address] [place] [address] Chloride [Moles/Vol] 106 mmol/L Normal 98-107 [facility] Comment on above: Order Comment: Speci men Type: BLOOD SPECIMEN Ordering Facility: [facility] Address: [address] [place] [address] Performed By: #### 2 4323-8, 2532-0 #### [facility] CLIA [id number] [address] [place] [address] CO2 [Moles/Vol] 28 mmol/L Normal 22-30 [facility] Comment on above: Order Comment: Speci men Type: BLOOD SPECIMEN Ordering Facility: [facility] Address: [address] [place] [address] Performed By: #### 2 4323-8, 2531-0 #### [facility] CLIA [id number] [address] [place] [address] Creatinine [Mass/Vol] 1.03 mg/dL Normal 0.73-1.22 [facility] Comment on above: Order Comment: Mike negro Type: BLOOD SPECIMEN Ordering Facility: [facility] Address: [address] [place] [address] Performed By: #### 2 4323-8, 2531-0 #### [facility] CLIA [id number] [address] [place] [address] eGFRcr SerPlBld CKD-EPI 2020 76 mL/min/1.73m??? Normal >=60 [facility] Comment on above: Order Comment: Mike tom Type: BLOOD SPECIMEN Ordering Facility: [facility] Address: [address] [place] [address] Result Comment: Jennifer mated Glomerular Filtration Rate (eGFR) is calculated using the 2020 CKD-EPI creatinine equation. This equation utilizes serum creatinine, sex, and age as parameters. The creatinine assay has traceable calibration to isotope dilution-mass spectrometry. Refer to KDIGO guidelines for clinical interpretation. In patients with unstable renal function, e.g. those with acute kidney injury, the eGFR may not accurately reflect actual GFR. Performed By: #### 2 4323-8, 2531-0 #### [facility] CLIA [id number] [address] [place] [address] Glucose [Mass/Vol] 107 mg/dL High 74-99 [facility] Comment on above: Order Comment: Mike negro Type: BLOOD SPECIMEN Ordering Facility: [facility] Address: [address] [place] [address] Result Comment: The [place] Diabetes Association (ADA) provides guidance for cutoff [...] Standards of Medical Care in Diabetes 2016, [place] [employer] Association. Diabetes Care. 2016.39(Suppl 1). Performed By: #### 2 4328, 0 #### [facility] CLIA [id number] [address] [place] [address] Potassium [Moles/Vol] 4.3 mmol/L Normal 3.7-5.1 [facility] Comment on above: Order Comment: Speci men Type: BLOOD SPECIMEN Ordering Facility: [facility] Address: [address] [place] [address] Performed By: #### 2 4322-10, #### [facility] CLIA [id number] [address] [place] [address] Protein [Mass/Vol] 6.6 g/dL Normal 6.3-8.0 [facility] Comment on above: Order Comment: Speci men Type: BLOOD SPECIMEN Ordering Facility: [facility] Address: [address] [place] [address] Performed By: #### 2 43205-22, 0 #### [facility] CLIA [id number] [address] [place] [address] Sodium [Moles/Vol] 142 mmol/L Normal 136-144 [facility] Comment on above: Order Comment: Speci men Type: BLOOD SPECIMEN Ordering Facility: [facility] Address: [address] [place] [address] Performed By: #### 2 43205-22, 0 #### [facility] CLIA [id number] [address] [place] [address] Urea nitrogen [Mass/Vol] 19 mg/dL Normal 9-24 [facility] Comment on above: Order Comment: Mike tom Type: BLOOD SPECIMEN Ordering Facility: [facility] Address: [address] [place], [place] [address] Performed By: #### 2 4323-8, 0 #### [facility] CLIA [id number] [address] [place] [address] Eosinophils/100 WBC Auto (Bl d)Ordered By: Adeel Crespo on 10-13-2024 Eosinophils/100 WBC (Bld) 4.0 % [facility] Erythrocyte distribution wid th Auto (RBC) [Ratio]Ordered By: Adeel Crespo on 10-13-2024 Erythrocyte distribution width (RBC) [Ratio] 13.0 % 11.5-15.0 [facility] Hematocrit Auto (Bld) [Volum e fraction]Ordered By: Adeel Crespo on 10-13-2024 Hematocrit (Bld) [Volume fraction] 42.7 % 39.0-51.0 [facility] Hemoglobin [Mass/volume] in BloodOrdered By: Adeel Crespo on 10-13-2024 Hemoglobin (Bld) [Mass/Vol] 13.9 g/dL 13.0-17.0 [facility] LDH SerPl-cCncon 10-13-2024 LDH [Catalytic activity/Vol] 171 U/L Normal 135-225 [facility] Comment on above: Order Comment: Mike tom Type: BLOOD SPECIMEN Ordering Facility: [facility] Address: [facility] [address] Result Comment: Hemo lysis present. The origin of the hemolysis, in vitro versus an in vivo hemolytic process, cannot be distinguished via this assay alone. In vitro hemolysis may lead to non-physiological (spurious) elevation in lactate dehydrogenase (LDH) results. The result should be interpreted in context of the clinical setting and other test results. Suggest reorder as clinically indicated. Performed By: #### 2 4323-8, 0 #### [facility] CLIA [id number] [address] [place] [address] Laboratory - Chemistry and C hemistry - challengeOrdered By: Adeel Crespo on 10-13-2024 LDH [Catalytic activity/Vol] 171 U/L 135-225 [facility] Comment on above: Hemolysis present. T he origin of the hemolysis, in vitro versus an in vivo hemolytic process, cannot be distinguished via this assay alone. In vitro hemolysis may lead to non-physiological (spurious) elevation in lactate dehydrogenase (LDH) results. The result should be interpreted in context of the clinical setting and other test results. Suggest reorder as clinically indicated. Laboratory - Hematology and Cell countsOrdered By: Adeel Crespo on 10-13-2024 Eosinophils (Bld) [#/Vol] 0.62 10*3/uL High <0.46 [facility] Leukocytes [#/volume] correc dixon for nucleated erythrocytes in Blood by Automated counOrdered By: Adeel Crespo on 10-13-2024 WBC corrected for nucl RBC Auto (Bld) [#/Vol] 15.57 k/uL High 3.70-11.00 [facility] Lymphocytes Auto (Bld) [#/Vo l]Ordered By: Adeel Crespo on 10-13-2024 Lymphocytes (Bld) [#/Vol] 13.55 10*3/uL High 1.00-4.00 [facility] Lymphocytes/100 WBC Auto (Bl d)Ordered By: Adeel Crespo on 10-13-2024 Lymphocytes/100 WBC (Bld) 87.0 % [facility] MCH Auto (RBC) [Entitic mass ]Ordered By: Adeel Crespo on 10-13-2024 MCH (RBC) [Entitic mass] 31.1 pg 26.0-34.0 [facility] MCHC Auto (RBC) [Mass/Vol]Or dered By: Adeel Crespo on 10-13-2024 MCHC (RBC) [Mass/Vol] 32.6 g/dL 30.5-36.0 [facility] MCV Auto (RBC) [Entitic vol] Ordered By: Adeel Crespo on 10-13-2024 MCV (RBC) [Entitic vol] 95.5 fL 80.0-100.0 [facility] Monocytes Auto (Bld) [#/Vol] Ordered By: Adeel Crespo on 10-13-2024 Monocytes (Bld) [#/Vol] 0.31 10*3/uL <0.87 [facility] Monocytes/100 WBC Auto (Bld) Ordered By: Adeel Crespo on 10-13-2024 Monocytes/100 WBC (Bld) 2.0 % [facility] Neutrophils Auto (Bld) [#/Vo l]Ordered By: Adeel Crespo on 10-13-2024 Neutrophils (Bld) [#/Vol] 0.93 10*3/uL Low 1.45-7.50 [facility] Neutrophils/100 WBC Auto (Bl d)Ordered By: Adeel Crespo on 10-13-2024 Neutrophils/100 WBC (Bld) 6.0 % [facility] No Panel InformationOrdered By: Adeel Crespo on 10-13-2024 Normal RBC Morphology Reviewed: unremarkable [facility] Nucleated RBC Auto (Bld) [#/ Vol]Ordered By: Adeel Crespo on 10-13-2024 Nucleated RBC (Bld) [#/Vol] 10*3/uL <0.01 [facility] Nucleated erythrocytes [Pres ence] in Blood by Automated countOrdered By: Adeel Crespo on 10-13-2024 Nucleated RBC Auto Ql (Bld) 0.0 /100{WBC} [facility] Platelet adequacy [Presence] in Blood by Light microscopyOrdered By: Adeel Crespo on 10-13-2024 Platelets LM Ql (Bld) Adequate [facility] Platelet mean volume Auto (B ld) [Entitic vol]Ordered By: Adeel Crespo on 10-13-2024 Platelet mean volume (Bld) [Entitic vol] 10.6 fL 9.0-12.7 [facility] Platelets Auto (Bld) [#/Vol] Ordered By: Adeel Crespo on 10-13-2024 Platelets (Bld) [#/Vol] 207 10*3/uL 150-400 [facility] RBC Auto (Bld) [#/Vol]Ordere d By: Adeel Crespo on 10-13-2024 RBC (Bld) [#/Vol] 4.47 10*6/uL 4.20-6.00 [facility] CNPNon 10-06-2024 CNPN Telephone (HEMASA) KERWIN AVILA ([id number]) 1950 M Date Time Provider Department 10/06/24 ISRAEL MARAVILLA During your visit today, we recorded the following information about you: Lucy Murcia MA 10/06/2024 9:[address] labs if needed for appt on 10/13. Lucy Murcia MA Allergies As of Date: 10/06/2024 (No Known Allergies) Date Reviewed: 10/06/2024 Reviewed by: Adeel Crespo APRN.MANUFACTURER'S REPRESENTATIVE - Fully Assessed Reason for Visit: Lab Orders [1688] Primary Visit Diagnosis:CLL (chronic lymphocytic leukemia) ([facility]) [C91.10] Order(s):COMPLETE BLOOD COUNT AND DIFFERENTIAL [SQCBCDIF] Order #: [id number] FUTURE COMPREHENSIVE METABOLIC PANEL [SQCMP] Order #: [id number] FUTURE LACTATE DEHYDROGENASE [SQLD6] Order #: [id number] FUTURE Prescriptions as of 10/06/2024 - meloxicam (MOBIC) 15 mg tablet - atorvastatin (LIPITOR) 10 mg tablet Take 10 mg by mouth once daily. Problem List As Of Date 10/06/2024 Noted Resolved CLL (chronic lymphocytic leukemia) [C91.10] 03/26/2012 Encounter Status:Closed by ADEEL CRESPO on 10/06/24 [facility] X-ray reportOrdered By: Homer Stern on 04-13-2024 Study report [facility] [address] [place] [address] XRay Report Signed Patient: Kerwin Avila MR#: [id number] : 1950 Acct:[id number] Age/Sex: 74 / M ADM Date: 5 Loc: [facility] Room: Type: [facility] Attending Dr: Jesse Alberts MD Copies to: Jesse Alberts MD~ Ordering Provider: Jesse Alberts MD Date of Service: 04/13/24 XR/XR knee RT 2V: M25.561 - Pain in right knee 2 views right knee plain film COMPARISON: None HISTORY: Chronic right knee pain ACUTE FINDINGS: No acute findings DEGENERATIVE CHANGE: Unremarkable SOFT TISSUE FINDINGS: Unremarkable JOINT EFFUSION: None POSTOP CHANGES: None BONE MINERALIZATION: Adequate XR/XR knee RT 2V IMPRESSION: Unremarkable exam Impression dictated by: Timmy Stern M.D.04/13/2024 5:29 PM Dictation Location: RADIO-PC-20 Transcribed By: MEDHAT 04/13/241728 Dictated By: Timmy Stern DO 04/13/241727 Signed By: 04/13/24 172 [facility] XR knee RT 2Von 04-13-2024 XR knee RT 2V [facility] [address] [place] [address] XRay Report Signed Patient: Kerwin Avila MR#: [id number] 8 : 1950 Acct:[id number] Age/Sex: 74 / M ADM Date: 04/13/24 Loc: [facility] Room: Type: [facility] Attending Dr: Jesse Alberts MD Copies to: Jesse Alberts MD Ordering Provider: Jesse Alberts MD Date of Service: 04/13/24 XR/XR knee RT 2V: M25.561 - Pain in right knee 2 views right knee plain film COMPARISON: None HISTORY: Chronic right knee pain ACUTE FINDINGS: No acute findings DEGENERATIVE CHANGE: Unremarkable SOFT TISSUE FINDINGS: Unremarkable JOINT EFFUSION: None POSTOP CHANGES: None BONE MINERALIZATION: Adequate XR/XR knee RT 2V IMPRESSION: Unremarkable exam Impression dictated by: Timmy Stern M.D.04/13/2024 5:29 PM Dictation Location: RADIO-PC-20 Transcribed By: MEDHAT 04/13/241728 Dictated By: Timmy Stern DO 04/13/241727 Signed By: 04/13/24 172 Normal [facility] X-ray reportOrdered By: Darek Torres on 03-25-2024 Study report [facility] [address] [place] [address] XRay Report Signed Patient: Kerwin Avila MR#: [id number] : 1950 Acct:[id number] Age/Sex: 74 / M ADM Date: 5 Loc: [facility] Room: Type: [facility] CLI Attending Dr: Jesse Alberts MD Copies to: Jesse Alberts MD~ Ordering Provider: Jesse Alberts MD Date of Service: 03/25/24 XR/XR hip RT min 2V(w/wo pelvis)*: M16.11 - Unilateral primary osteoarthritis, right hip RIGHT HIP - 2 views: CLINICAL HISTORY: Right lateral hip pain for 4 years COMPARISON: Hip series 12/10/2021 FINDINGS: Severe degenerative changes of the right hip without acute bony process. XR/XR hip RT min 2V(w/wo pelvis)* IMPRESSION: SEVERE DEGENERATIVE CHANGES OF THE RIGHT HIP WITHOUT ACUTE BONY PROCESS.. Impression dictated by: Lele Torres Jr., D.OSerg03/25/2024 3:09 PM Dictation Location: [place] [address] Transcribed By: [facility] 03/25/24 1509 Dictated By: Lele Torres Jr, DO 03/25/24 1509 Signed By: 03/25/24 1509 [facility] XR hip RT min 2V(w/wo pelvis )*on 03-25-2024 XR hip RT min 2V(w/wo pelvis)* [facility] [address] [place] [address] XRay Report Signed Patient: Kerwin Avila MR#: [id number] 8 : 1950 Acct:[id number] Age/Sex: 74 / M ADM Date: 03/25/24 Loc: [facility] Room: Type: [facility] CLI Attending Dr: Jesse Alberts MD Copies to: Jesse Alberts MD Ordering Provider: Jesse Alberts MD Date of Service: 03/25/24 XR/XR hip RT min 2V(w/wo pelvis)*: M16.11 - Unilateral primary osteoarthritis, right hip RIGHT HIP - 2 views: CLINICAL HISTORY: Right lateral hip pain for 4 years COMPARISON: Hip series 12/10/2021 FINDINGS: Severe degenerative changes of the right hip without acute bony process. XR/XR hip RT min 2V(w/wo pelvis)* IMPRESSION: SEVERE DEGENERATIVE CHANGES OF THE RIGHT HIP WITHOUT ACUTE BONY PROCESS.. Impression dictated by: Lele Torres Jr., D.O.03/25/2024 3:09 PM Dictation Location: [facility]- Transcribed By: [facility] 03/25/24 1509 Dictated By: Lele Torres Jr, DO 03/25/24 1509 Signed By: 03/25/24 1509 Normal [facility] Basophils/100 WBC Manual cnt (Bld)on 11-11-2023 Basophils/100 WBC (Bld) 0.0 % Low 0.2-2.0 [facility] Cholesterol in LDL Calc [Mas s/Vol]on 11-11-2023 Cholesterol in LDL [Mass/Vol] 92.8 mg/dL [facility] Comment on above: <100 mg/dl [id number] 0-129 mg/dl NEAR OR ABOVE [id number] mg/dl BORDERLINE [id number] mg/dl HIGH>190 mg/dl VERY HIGH Cholesterol in VLDL Calc [Ma ss/Vol]on 11-11-2023 Cholesterol in VLDL [Mass/Vol] 8.2 mg/dL [facility] Eosinophils/100 WBC Manual c nt (Bld)on 11-11-2023 Eosinophils/100 WBC (Bld) 0.0 % Low 0.9-7.0 [facility] Erythrocyte distribution wid th Auto (RBC) [Ratio]on 11-11-2023 Erythrocyte distribution width (RBC) [Ratio] 12.8 % 11.0-15.0 [facility] Estimated glomerular filtrat ion rate (GFR) non- Americanon 11-11-2023 GFR/1.73 sq M.predicted among non-blacks MDRD (S/P/Bld) [Vol rate/Area] mL/min/{1.73_m2} >=60 [facility] Globulin Calc (S) [Mass/Vol] on 11-11-2023 Globulin (S) [Mass/Vol] 2.8 g/dL [facility] Hematocrit Auto (Bld) [Volum e fraction]on 11-11-2023 Hematocrit (Bld) [Volume fraction] 43.8 % 42.0-54.0 [facility] Hemoglobin [Mass/volume] in Bloodon 11-11-2023 Hemoglobin (Bld) [Mass/Vol] 14.5 g/dL 14.0-18.0 [facility] Daron 11-11-2023 L Specimen: [id number] Re ceived: 11/13/23 Status: SOUT Req Num: [id number] Spec Type: Impression Subm Dr: Ronald Pollard DO Tissues: PATHPER Procedures: PATHREVIEW Age/ Patient Sex Location Account Attending Physician Kerwin Avila 73/M LABELL [id number] Ronald Pollard DO SPEC NUM: [id number] RECD: 11/13/23 STATUS: SOULeonel REQ NUM: [id number] MORENA: 11/11/[address]: Ronald Pollard DO ENTERED: 11/13/[address] [facility] [address]: Alex,Lab SPEC TYPE: Impression DEPT: KAREY Tidwell ENTERED BY: [id number] RECV BY: [id number] ORDERED: PATHREVIEW ORDERED: PATHREVIEW Pathologist Review Abnormal CBC for peripheral blood smear review: -Agree with the reported findings of hematologic analyzer -Mild leukocytosis with mild lymphocytosis, including often medium-sized lymphocytes with slightly enlarged and square shape nuclei, often with dense chromatin clumping, and slightly high N:C ratio, consistent with the features of CLL/SLL -No significant abnormality of the indices of the red blood cell or platelet population Comment: -Confirmation of the CLL can also be done by flow cytometry analysis of the peripheral blood if indicated. Continuous CBC laboratory follow-ups are also suggested CPT: 17532 Specimen: [id number] Received: 11/13/23 Status: MOHSEN Conroy Num: [id number] Spec Type: Impression Subm Dr: Ronald Pollard DO Tissues: PATHPER Procedures: PATHREVIEW Patient: Kerwin Avila [id number] (Continued) Signed (signature on file) Thai Kessler MD 11/14/23 1025 Normal [facility] Laboratory - Chemistry and C hemistry - challengeon 11-11-2023 Albumin [Mass/Vol] 3.9 g/dL 3.4-5.0 [facility] ALP [Catalytic activity/Vol] 65 U/L 46-116 [facility] ALT [Catalytic activity/Vol] 28 U/L 16-63 [facility] AST [Catalytic activity/Vol] 19 U/L 15-37 [facility] Bilirubin [Mass/Vol] 0.9 mg/dL 0.2-1.0 [facility] Calcium [Mass/Vol] 9.1 mg/dL 8.5-10.1 [facility] Chloride [Moles/Vol] 106 mmol/L 98-107 [facility] Cholesterol [Mass/Vol] 158 mg/dL <=200 [facility] Cholesterol in HDL [Mass/Vol] 57 mg/dL 40-60 [facility] Comment on above: > or =60 mg/dl - LOW CARDIOVASCULAR RISK<40 mg/dl - HIGH CARDIOVASCULAR RISK CO2 [Moles/Vol] 29.2 mmol/L 21.0-32.0 [facility] Creatinine [Mass/Vol] 0.98 mg/dL 0.70-1.30 [facility] Free T4 [Mass/Vol] 1.05 ng/dL 0.76-1.46 [facility] GFR/1.73 sq M.predicted MDRD (S/P/Bld) [Vol rate/Area] mL/min/{1.73_m2} >=60 [facility] Glucose [Mass/Vol] 97 mg/dL 74-106 [facility] Potassium [Moles/Vol] 4.0 mmol/L 3.5-5.1 [facility] Protein [Mass/Vol] 6.7 g/dL 6.4-8.2 [facility] Sodium [Moles/Vol] 142 mmol/L 136-145 [facility] Triglyceride [Mass/Vol] 41 mg/dL <=150 [facility] TSH Qn 1.325 m[IU]/L 0.358-3.740 [facility] Urea nitrogen [Mass/Vol] 16.0 mg/dL 7.0-18.0 [facility] Urea nitrogen/Creatinine [Mass ratio] 16.3 mg/mg [facility] Laboratory - Hematology and Cell countson 11-11-2023 Lymphocytes/100 WBC (Bld) 70.0 % High 20.5-60.0 [facility] Monocytes/100 WBC (Bld) 2.0 % 1.7-12.0 [facility] Leukocytes [#/volume] correc dixon for nucleated erythrocytes in Blood by Automated counon 11-11-2023 WBC corrected for nucl RBC Auto (Bld) [#/Vol] 18.9 10 3/uL High 4.0-11.0 [facility] MCH Auto (RBC) [Entitic mass ]on 11-11-2023 MCH (RBC) [Entitic mass] 31.2 pg 25.9-34.0 [facility] MCHC Auto (RBC) [Mass/Vol]on 11-11-2023 MCHC (RBC) [Mass/Vol] 33.1 g/dL 29.9-35.2 [facility] MCV Auto (RBC) [Entitic vol] on 11-11-2023 MCV (RBC) [Entitic vol] 94.2 fL High 80.0-94.0 [facility] No Panel Informationon 11-10 Absolute Basophils (Manual) 0.00 10 3/uL 0.00-0.10 [facility] Eosinophils # (Manual) 0.00 10 3/uL 0.00-0.70 [facility] Lymphocytes # (Manual) 13.23 10 3/uL High 1.20-3.80 [facility] Monocytes # (Manual) 0.37 10 3/uL 0.30-0.80 [facility] Prostate Specific Antigen Screen 1.27 ng/mL <=4.00 [facility] Reactive Lymphocytes 1.70 [facility] Reactive Lymphocytes 9.0 % [facility] Segmented Neutrophils # (Manual) 3.59 10 3/uL 1.4-6.5 [facility] Platelet mean volume Auto (B ld) [Entitic vol]on 11-11-2023 Platelet mean volume (Bld) [Entitic vol] 10.5 fL 9.5-13.5 [facility] Platelets Auto (Bld) [#/Vol] on 11-11-2023 Platelets (Bld) [#/Vol] 206 10 3/uL 150-450 [facility] RBC Auto (Bld) [#/Vol]on RBC (Bld) [#/Vol] 4.65 10 6/uL Low 4.70-6.10 [facility] Segmented neutrophils/100 WB C Manual cnt (Bld)on 11-11-2023 Segmented neutrophils/100 WBC (Bld) 19.0 % Low 43.0-75.0 [facility] Serum or plasma albumin/glob ulin mass ratioon 11-11-2023 Albumin/Globulin [Mass ratio] 1.4 {ratio} [facility] Serum or plasma anion gap de terminationon 11-11-2023 Anion gap [Moles/Vol] 10.8 mmol/L [facility] Serum or plasma total choles terol/high density lipoprotein (HDL) cholesterol mass stephanie 11-11-2023 Cholesterol.total/Ch olesterol in HDL [Mass ratio] 2.8 {ratio} [facility] Comment on above: 3.3 - 4.4 LOW RISK4. 4 - 7.1 AVERAGE RISK7.1 - 11.0 MODERATE RISK>11.0 HIGH RISK Smudge cell detectionon 10-16 Smudge cells LM Ql (Bld) SEEN [facility] CNOVon 10-23-2023 CNOV Office Visit ([facility] ) KERWIN AVILA ([id number]) 1950 M Date Time Provider Department 10/23/23 10:00 AM Juancarlos HERNANDEZ During your visit today, we recorded the following information about you: Temperature Pulse Respiration Blood pressure 98.3 degrees 66/minute 16/minute 128/74 Weight 90.1 kg Juancarlos Hernandez MD 10/28/2023 8:44 AM Signed Radiation Oncology - Follow Up Note PATIENT DIAGNOSIS: Laryngeal cancer, right true cord T1N0M0 RADIATION SUMMARY: DATES OF TREATMENT: 08/16/19-09/23/19 AREA TREATED: Larynx DELIVERED DOSE: Larynx: 6,300cGy in 28 fractions, 2 Christian, 3D Conformal, 6MV with daily CBCT TOTAL:6,300cGy in 28 fractions ELAPSED TIME: 38 days. INTERVAL HISTORY: Doing well. 10/17/22: Doing well denies new problems. Denies dysphagia or neck pain. Voice stable. 8/4/22:Patient developed episode of hair loss including eyebrows. Also some lack of appetite. Has been on odomzo. Which he has stopped and symptoms seem to have reversed. He was also started on prednisone. Also underwent laboratory work-up without significant findings. LABORATORY: Latest Reference Range AND Units 06/08/20 09:14 10/03/20 11:31 10/10/22 08:45 T4 5.5 - 10.2 ug/dL 6.8 6.3 6.3 TSH 0.270 - 4.200 mIU/L 1.390 1.050 1.340 ALLERGIES No Known Allergies MEDICATIONS: meloxicam (MOBIC) 15 mg tablet atorvastatin (LIPITOR) [...] rashes or other skin changes. PHYSICAL EXAM: 10/23/23 0948 BP: 128/74 Pulse: 66 Resp: 16 Temp: 36.8 ?C (98.3 ?F) SpO2: 95% Weight: 90.1 kg (198 lb 10.2 oz) KPS: 100 General Appearance: Well appearing, alert, [...] Doing well without evidence of recurrence. He continues close surveillance with Dr. Juárez. Plan to see patient back in 1 year for follow-up. 2. Chronic lymphocytic leukemia diagnosed Clinical stage I disease. Current therapy is observation an is seeing Dr. Ambrosio. Signed by: Juancarlos Hernandez MD cc: Ronald Pollard MD ([facility]) Dr. Juárez Portions of the above note extracted and edited from previous visit as well as active information included in the EMR. Referring Provider: Juancarlos HERNANDEZ [[id number]] Allergies As of Date: 10/23/2023 (No Known Allergies) Date Reviewed: 10/23/2023 Reviewed by: Ely Dobbins LPN - Fully Assessed Reason for Visit: Head and Neck Cancer [551] Primary Visit Diagnosis:History of cancer of larynx [Z85.21] Prescriptions as of 10/28/2023 - meloxicam (MOBIC) 15 mg tablet - atorvastatin (LIPITOR) 10 mg tablet Take 10 mg by mouth once daily. Problem List As Of Date 10/23/2023 Noted Resolved CLL (chronic lymphocytic leukemia) [C91.10] 03/26/2012 Disposition: Return in about 1 year (around 10/22/2024). Follow-up and Disposition History for Encounter Date Provider Department Center 10/23/2023 [id number] HERNANDEZ [facility] Status:Closed by Juancarlos HERNANDEZ on 10/28/23 Normal [facility] Basophils Auto (Bld) [#/Vol] on 10-14-2023 Basophils (Bld) [#/Vol] 0.18 10*3/uL High <0.11 [facility] Basophils/100 WBC Auto (Bld) on 10-14-2023 Basophils/100 WBC (Bld) 1.0 % [facility] Blood manual differential co mment interpretation narrativeon 10-14-2023 Manual differential comment Vick (Bld) [Interp] Manual [facility] Eosinophils/100 WBC Auto (Bl d)on 10-14-2023 Eosinophils/100 WBC (Bld) 1.0 % [facility] Erythrocyte distribution wid th Auto (RBC) [Ratio]on 10-14-2023 Erythrocyte distribution width (RBC) [Ratio] 12.9 % 11.5-15.0 [facility] Hematocrit Auto (Bld) [Volum e fraction]on 10-14-2023 Hematocrit (Bld) [Volume fraction] 44.2 % 39.0-51.0 [facility] Hemoglobin [Mass/volume] in Bloodon 10-14-2023 Hemoglobin (Bld) [Mass/Vol] 14.4 g/dL 13.0-17.0 [facility] Laboratory - Chemistry and C hemistry - challengeon 10-14-2023 Albumin [Mass/Vol] 4.7 g/dL 3.9-4.9 [facility] ALP [Catalytic activity/Vol] 81 U/L 38-113 [facility] ALT [Catalytic activity/Vol] 18 U/L 10-54 [facility] AST [Catalytic activity/Vol] 18 U/L 14-40 [facility] Bilirubin [Mass/Vol] 0.8 mg/dL 0.2-1.3 [facility] Calcium [Mass/Vol] 10.0 mg/dL 8.5-10.2 [facility] Chloride [Moles/Vol] 105 mmol/L 98-107 [facility] CO2 [Moles/Vol] 28 mmol/L 22-30 [facility] Creatinine [Mass/Vol] 1.22 mg/dL 0.73-1.22 [facility] Glucose [Mass/Vol] 118 mg/dL High 74-99 [facility] Comment on above: The [place] Diabete s Association (ADA) provides guidance for cutoff values for fasting glucose and random glucose. The ADA defines fasting as no caloric intake for at least 8 hours. Fasting plasma glucose results between 100 to 125 mg/dL indicate increased risk for diabetes (prediabetes).Fasting plasma glucose results greater than or equal to 126 mg/dL meet the criteria for diagnosis of diabetes. In the absence of unequivocal hyperglycemia, results should be confirmed by repeat testing. In a patient with classic symptoms of hyperglycemia or hyperglycemic crisis, random plasma glucose results greater than or equal to 200 mg/dL meet the criteria for diagnosis of diabetes.Reference: Standards of Medical Care in Diabetes 2016, [place] Diabetes Association. Diabetes Care. 2016.39(Suppl 1). LDH [Catalytic activity/Vol] 152 U/L 135-225 [facility] Comment on above: Hemolysis present. T he origin of the hemolysis, in vitro versus an in vivo hemolytic process, cannot be distinguished via this assay alone. In vitro hemolysis may lead to non-physiological (spurious) elevation in lactate dehydrogenase (LDH) results. The result should be interpreted in context of the clinical setting and other test results. Suggest reorder as clinically indicated. Potassium [Moles/Vol] 4.8 mmol/L 3.7-5.1 [facility] Sodium [Moles/Vol] 142 mmol/L 136-144 [facility] Urea nitrogen [Mass/Vol] 22 mg/dL 9 [facility] Laboratory - Hematology and Cell countson 10-14-2023 Eosinophils (Bld) [#/Vol] 0.18 10*3/uL <0.46 [facility] Leukocytes [#/volume] correc dixon for nucleated erythrocytes in Blood by Automated counon 10-14-2023 WBC corrected for nucl RBC Auto (Bld) [#/Vol] 17.59 k/uL High 3.70-11.00 [facility] Lymphocytes Auto (Bld) [#/Vo l]on 10-14-2023 Lymphocytes (Bld) [#/Vol] 15.13 10*3/uL High 1.00-4.00 [facility] Lymphocytes/100 WBC Auto (Bl d)on 10-14-2023 Lymphocytes/100 WBC (Bld) 86.0 % [facility] MCH Auto (RBC) [Entitic mass ]on 10-14-2023 MCH (RBC) [Entitic mass] 31.0 pg 26.0-34.0 [facility] MCHC Auto (RBC) [Mass/Vol]on 10-14-2023 MCHC (RBC) [Mass/Vol] 32.6 g/dL 30.5-36.0 [facility] MCV Auto (RBC) [Entitic vol] on 10-14-2023 MCV (RBC) [Entitic vol] 95.3 fL 80.0-100.0 [facility] Monocytes Auto (Bld) [#/Vol] on 10-14-2023 Monocytes (Bld) [#/Vol] 0.35 10*3/uL <0.87 [facility] Monocytes/100 WBC Auto (Bld) on 10-14-2023 Monocytes/100 WBC (Bld) 2.0 % [facility] Neutrophils Auto (Bld) [#/Vo l]on 10-14-2023 Neutrophils (Bld) [#/Vol] 1.76 10*3/uL 1.45-7.50 [facility] Neutrophils/100 WBC Auto (Bl d)on 10-14-2023 Neutrophils/100 WBC (Bld) 10.0 % [facility] No Panel Informationon 10-13 Estimated GFR (CKD-EPI) 62 mL/min/1.73m??? >=60 [facility] Comment on above: Estimated Glomerular Filtration Rate (eGFR) is calculated using the 2020 CKD-EPI creatinine equation. This equation utilizes serum creatinine, sex, and age as parameters. The creatinine assay has traceable calibration to isotope dilution-mass spectrometry. Refer to KDIGO guidelines for clinical interpretation. In patients with unstable renal function, e.g. those with acute kidney injury, the eGFR may not accurately reflect actual GFR. Normal RBC Morphology Reviewed: unremarkable [facility] Nucleated RBC Auto (Bld) [#/ Vol]on 10-14-2023 Nucleated RBC (Bld) [#/Vol] 10*3/uL <0.01 [facility] Nucleated erythrocytes [Pres ence] in Blood by Automated counton 10-14-2023 Nucleated RBC Auto Ql (Bld) 0.0 /100{WBC} [facility] Platelet adequacy [Presence] in Blood by Light microscopyon 10-14-2023 Platelets LM Ql (Bld) Adequate [facility] Platelet mean volume Auto (B ld) [Entitic vol]on 10-14-2023 Platelet mean volume (Bld) [Entitic vol] 10.2 fL 9.0-12.7 [facility] Platelets Auto (Bld) [#/Vol] on 10-14-2023 Platelets (Bld) [#/Vol] 227 10*3/uL 150-400 [facility] Protein [Mass/volume] in Ser um or Plasmaon 10-14-2023 Protein [Mass/Vol] 7.1 g/dL 6.3-8.0 [facility] RBC Auto (Bld) [#/Vol]on RBC (Bld) [#/Vol] 4.64 10*6/uL 4.20-6.00 [facility] Serum or plasma anion gap de terminationon 10-14-2023 Anion gap [Moles/Vol] 9 mmol/L 10-29 [facility] CBC W MANUAL DIFFon 07-02-19 ATYPICAL LYMPH # Normal [facility] Comment on above: Performed By: #### C AGNIESZKA #### [facility] [address] [place] [address] Dr. Ector Kessler ATYPICAL LYMPH % Normal [facility] Comment on above: Performed By: #### C AGNIESZKA #### [facility] [address] [place] [address] Dr. Ector Kessler BAND # Normal 0.0-0.3 [facility] Comment on above: Performed By: #### C AGNIESZKA #### [facility] [address] [place] [address] Dr. Ector Kessler BAND % Normal 0-5 [facility] Comment on above: Performed By: #### C AGNIESZKA #### [facility] [address] [place] [address] Dr. Ector Kessler BASOM # 0.00 103/ul Normal 0.00-0.10 [facility] Comment on above: Performed By: #### C AGNIESZKA #### [facility] [address] [place] [address] Dr. Ector Kessler BASOM % 0.0 % Critically low 0.2-2.0 [facility] Comment on above: Performed By: #### C AGNIESZKA #### [facility] [address] [place] [address] Dr. Ector Keslser BLAST # Normal [facility] Comment on above: Performed By: #### C AGNIESZKA #### [facility] [address] [place] [address] Dr. Ector Kessler BLAST % Normal [facility] Comment on above: Performed By: #### C AGNIESZKA #### [facility] [address] [place] [address] Dr. Ector Kessler CORRECTED WBC Normal 4.0-11.0 [facility] Comment on above: Performed By: #### C AGNIESZKA #### [facility] [address] [place] [address] Dr. Ector Kessler EOS # 0.33 103/ul Normal 0.00-0.70 [facility] Comment on above: Performed By: #### C AGNIESZKA #### [facility] [address] [place] [address] Dr. Ector Kessler EOS% 2.0 % Normal 0.9-7.0 [facility] Comment on above: Performed By: #### C AGNIESZKA #### [facility] [address] [place] [address] Dr. Ector Kessler HCT 47.0 % Normal 42.0-54.0 [facility] Comment on above: Performed By: #### C AGNIESZKA #### [facility] [address] [place] [address] Dr. Ector Kessler HGB 15.4 g/dl Normal 14.0-18.0 [facility] Comment on above: Performed By: #### C AGNIESZKA #### [facility] [address] [place] [address] Dr. Ector Kessler LYMPHM # 13.53 103/ul Critically high 1.20-3.80 [facility] Comment on above: Performed By: #### C AGNIESZKA #### [facility] [address] [place] [address] Dr. Ector Kessler LYMPHM% 83.0 % Critically high 20.5-60.0 [facility] Comment on above: Performed By: #### C AGNIESZKA #### [facility] [address] [place] [address] Dr. Ector Kessler MCH 30.6 pg Normal 25.9-34.0 [facility] Comment on above: Performed By: #### C AGNIESZKA #### [facility] [address] [place] [address] Dr. Ector Kessler MCHC 32.8 g/dl Normal 29.9-35.2 [facility] Comment on above: Performed By: #### C AGNIESZKA #### [facility] [address] [place] [address] Dr. Ector Kessler MCV 93.4 fL Normal 80.0-94.0 [facility] Comment on above: Performed By: #### C AGNIESZKA #### [facility] [address] [place] [address] Dr. Ector Kessler METAMYELOCYTE # Normal [facility] Comment on above: Performed By: #### C AGNIESZKA #### [facility] [address] [place] [address] Dr. Ector Kessler METAMYELOCYTE % Normal [facility] Comment on above: Performed By: #### C AGNIESZKA #### [facility] [address] [place] [address] Dr. Ector Kessler MONOM# 0.33 103/ul Normal 0.30-0.80 [facility] Comment on above: Performed By: #### C AGNIESZKA #### [facility] [address] [place] [address] Dr. Ector Kessler MONOM% 2.0 % Normal 1.7-12.0 [facility] Comment on above: Performed By: #### C AGNIESZKA #### [facility] [address] [place] [address] Dr. Ector Kessler MPV 10.4 fL Normal 9.5-13.5 [facility] Comment on above: Performed By: #### C AGNIESZKA #### [facility] [facility] [address] [place] [address] Dr. Ector Kessler MYELOCYTE # Normal [facility] Comment on above: Performed By: #### C AGNIESZKA #### [facility] [address] [place] [address] Dr. Ector Kessler MYELOCYTE % Normal [facility] Comment on above: Performed By: #### C AGNIESZKA #### [facility] [address] [place] [address] Dr. Ector Kessler NRBC Normal [facility] Comment on above: Performed By: #### C AGNIESZKA #### [facility] [address] [place] [address] Dr. Ector Kessler PLT 200 103/ul Normal 150-450 [facility] Comment on above: Performed By: #### C AGNIESZKA #### [facility] [address] [place] [address] Dr. Ector Kessler POIKILOCYTOSIS SLIGHT Normal [facility] Comment on above: Performed By: #### C BCMAN #### [facility] [address] [address] [address] Ector Kessler RBC 5.03 106/ul Normal 4.70-6.10 [facility] Comment on above: Performed By: #### C BCMAN #### [facility] [address] [address] [address] Ector Kessler RDW 12.7 % Normal 11.0-15.0 [facility] Comment on above: Performed By: #### C BCMAN #### [facility] [address] [address] [address] Ector Kessler SEG # 2.12 103/ul Normal 1.40-6.50 [facility] Comment on above: Performed By: #### C BCMAN #### [facility] [address] [place] [address] Dr. Ector Kessler SEG % 13.0 % Critically low 43.0-75.0 [facility] Comment on above: Performed By: #### C BCMAN #### [facility] [address] [place] [address] Dr. Ector Kessler SMUDGE CELLS SEEN Normal [facility] Comment on above: Performed By: #### C BCMAN #### [facility] [address] [place] [address] Dr. Ector Kessler TEAR DROP CELLS SLIGHT Normal [facility] Comment on above: Performed By: #### C BCLUCI #### [facility] [address] [place] [address] Dr. Ector Kessler WBC 16.3 103/ul Critically high 4.0-11.0 [facility] Comment on above: Performed By: #### C BCMAN #### [facility] [address] [place] [address] Dr. Ector Kessler LIPID PROFILEon 07-01-2022 CHOL-HDL RATIO NORM SEE BELOW Normal [facility] Comment on above: Result Comment: 3.3 - 4.4 LOW RISK 4.4 - 7.1 AVERAGE RISK 7.1 - 11.0 MODERATE RISK >11.0 HIGH RISK Performed By: #### A LT, LIPID, BMP #### [facility] [address] [address] [address] Ector Kessler Cholesterol [Mass/Vol] 158 mg/dL Normal <=200 [facility] Comment on above: Performed By: #### A LT, LIPID, BMP #### [facility] [address] [address] [address] Ector Kessler Cholesterol in HDL [Mass/Vol] 50 mg/dL Normal 40-60 [facility] Comment on above: Performed By: #### A LT, LIPID, BMP #### [facility] [address] [place] [address] Dr. Ector Kessler Cholesterol in LDL [Mass/Vol] 93.4 mg/dL Normal [facility] Comment on above: Performed By: #### A LT, LIPID, BMP #### [facility] [address] [place] [address] Dr. Ector Kessler Cholesterol.total/Ch olesterol in HDL [Mass ratio] 3.2 {ratio} Normal [facility] Comment on above: Performed By: #### A LT, LIPID, BMP #### [facility] [address] [place] [address] Dr. Ector Kessler HDL NORMAL > or = 60 mg/dl - LO W CARDIOVASCULAR RISK <40 mg/dl - HIGH CARDIOVASCULAR RISK Normal [facility] Comment on above: Performed By: #### A LT, LIPID, BMP #### [facility] [address] [place] [address] Dr. Ector Kessler LDL CALC NORMAL SEE BELOW Normal [facility] Comment on above: Result Comment: <100 mg/dl OPTIMAL 100 - 129 mg/dl NEAR OR ABOVE OPTIMAL 130 - 159 mg/dl BORDERLINE HIGH 160 - 189 mg/dl HIGH >190 mg/dl VERY HIGH Performed By: #### A LT, LIPID, BMP #### [facility] [address] [place] [address] Dr. Ector Kessler Triglyceride [Mass/Vol] 73 mg/dL Normal <=150 [facility] Comment on above: Performed By: #### A LT, LIPID, BMP #### [facility] [address] [address] [address] Ector Kessler VLDL CALC 14.6 mg/dL Normal [facility] Comment on above: Performed By: #### A LT, LIPID, BMP #### [facility] [address] [place] [address] Dr. Ector Kessler PROF CHEM 8 (BAS METB)on Anion gap [Moles/Vol] 8.5 mmol/L Normal [facility] Comment on above: Performed By: #### A LT, LIPID, BMP #### [facility] [address] [place] [address] Dr. Ector Kessler Calcium [Mass/Vol] 9.2 mg/dL Normal 8.5-10.1 [facility] Comment on above: Performed By: #### A LT, LIPID, BMP #### [facility] [address] [place] [address] Dr. Ector Kessler Chloride [Moles/Vol] 107 mmol/L Normal 98-107 [facility] Comment on above: Performed By: #### A LT, LIPID, BMP #### [facility] [address] [place] [address] Dr. Ector Kessler CO2 [Moles/Vol] 31.0 mmol/L Normal 21.0-32.0 [facility] Comment on above: Performed By: #### A LT, LIPID, BMP #### [facility] [address] [place] [address] Dr. Ector Kessler Creatinine [Mass/Vol] 1.10 mg/dL Normal 0.70-1.30 [facility] Comment on above: Performed By: #### A LT, LIPID, BMP #### [facility] [address] [place] [address] Dr. Ector Kessler EGFR-AF MACANESE >60 Normal >=60 [facility] Comment on above: Performed By: #### A LT, LIPID, BMP #### [facility] [address] [place] [address] Dr. Ector Kessler EGFR-NON AF MACANESE >60 Normal >=60 [facility] Comment on above: Performed By: #### A LT, LIPID, BMP #### [facility] [address] [place] [address] Dr. Ector Kessler Glucose [Mass/Vol] 105 mg/dL Normal 74-106 [facility] Comment on above: Performed By: #### A LT, LIPID, BMP #### [facility] [address] [place] [address] Dr. Ector Kessler Potassium [Moles/Vol] 4.5 mmol/L Normal 3.5-5.1 [facility] Comment on above: Performed By: #### A LT, LIPID, BMP #### [facility] [address] [place] [address] Dr. Ector Kessler Sodium [Moles/Vol] 142 mmol/L Normal 136-145 [facility] Comment on above: Performed By: #### A LT, LIPID, BMP #### [facility] [address] [place] [address] Dr. Ector Kessler Urea nitrogen [Mass/Vol] 17.0 mg/dL Normal 7.0-18.0 [facility] Comment on above: Performed By: #### A LT, LIPID, BMP #### [facility] [address] [place] [address] Dr. Ector Kessler Urea nitrogen/Creatinine [Mass ratio] 15.5 mg/mg Normal [facility] Comment on above: Performed By: #### A LT, LIPID, BMP #### [facility] [address] [place] [address] Dr. Ector Kessler SGPTon 07-01-2022 ALT [Catalytic activity/Vol] 27 U/L Normal 16-63 [facility] Comment on above: Performed By: #### A LT, LIPID, BMP #### [facility] [address] [place] [address] Dr. Ector Kessler T3, TOTAL (TRIIODOTHYRONINE) on 10-30-2021 T3, TOTAL 79 ng/dL Normal 71-180 [facility] Comment on above: Performed By: #### T 3TOTAL #### [facility] [address] [place] [address] Dr. Ector Kessler FREE T4on 10-29-2021 Free T4 [Mass/Vol] 0.98 ng/dL Normal 0.76-1.46 [facility] Comment on above: Performed By: #### F T4 #### [facility] [address] [place] [address] Dr. Ector Kessler TSHon 10-29-2021 TSH 0.497 uIU/mL Normal 0.358-3.740 [facility] Comment on above: Performed By: #### T SH, CRP, CMP #### [facility] [address] [place] [address] Dr. Ector Kessler T3, TOTAL (TRIIODOTHYRONINE) on 09-26-2021 T3, TOTAL 85 ng/dL Normal 71-180 [facility] Comment on above: Performed By: #### T SH, CRP, CMP #### [facility] [address] [place] [address] Dr. Ector Kessler CBC W MANUAL DIFFon 09-25-19 22 ATYPICAL LYMPH # 3.42 103/ul Normal [facility] Comment on above: Performed By: #### C BCMAN #### [facility] [address] [place] [address] Dr. Ector Kessler ATYPICAL LYMPH % 12 % Normal [facility] Comment on above: Performed By: #### C BCMAN #### [facility] [address] [place] [address] Dr. Ector Kessler BAND # 0.0 103/ul Normal 0.0-0.3 [facility] Comment on above: Performed By: #### C BCMAN #### [facility] [address] [place] [address] Dr. Ector Kessler BAND % 0 % Normal 0-5 [facility] Comment on above: Performed By: #### C BCMAN #### [facility] [address] [place] [address] Dr. Ector Kessler BASOM # 0.00 103/ul Normal 0.00-0.10 [facility] Comment on above: Performed By: #### C ALEEMAN #### [facility] [address] [place], [place] [id number] Dr. Ector Kessler BASOM % 0.0 % Critically low 0.2-2.0 [facility] Comment on above: Performed By: #### C BCLUCI #### [facility] [address] [place] [address] Dr. Ector Kessler BLAST # 0.0 103/ul Normal [facility] Comment on above: Performed By: #### C BCLUCI #### [facility] [address] [place] [address] Dr. Ector Kessler BLAST % 0 % Normal [facility] Comment on above: Performed By: #### C BCLUCI #### [facility] [address] [place] [address] Dr. Ector Kessler CORRECTED WBC Normal 4.0-11.0 [facility] Comment on above: Performed By: #### C AGNIESZKA #### [facility] [address] [place] [address] Dr. Ector Kessler EOS # 0.00 103/ul Normal 0.00-0.70 [facility] Comment on above: Performed By: #### C AGNIESZKA #### [facility] [address] [place] [address] Dr. Ector Kessler EOS% 0.0 % Critically low 0.9-7.0 [facility] Comment on above: Performed By: #### C AGNIESZKA #### [facility] [address] [place] [address] Dr. Ector Kessler HCT 44.6 % Normal 42.0-54.0 [facility] Comment on above: Performed By: #### C BCMAN #### [facility] [address] [place] [address] Dr. Ector Kessler HGB 14.3 g/dl Normal 14.0-18.0 [facility] Comment on above: Performed By: #### C BCMAN #### [facility] [address] [place] [address] Dr. Ector Ksesler HYPERSEG NEUT 1+ Normal [facility] Comment on above: Performed By: #### C BCLUCI #### [facility] [address] [place] [address] Dr. Ector Kessler LYMPHM # 16.53 103/ul Critically high 1.20-3.80 [facility] Comment on above: Performed By: #### C AGNIESZKA #### [facility] [address] [place] [address] Dr. Ector Kessler LYMPHM% 58.0 % Normal 20.5-60.0 [facility] Comment on above: Performed By: #### C AGNIESZKA #### [facility] [address] [place] [address] Dr. Ector Kessler MACROCYTOSIS SLIGHT Normal [facility] Comment on above: Performed By: #### C AGNIESZKA #### [facility] [address] [place] [address] Dr. Ector Kessler MCH 30.2 pg Normal 25.9-34.0 [facility] Comment on above: Performed By: #### C AGNIESZKA #### [facility] [address] [place] [address] Dr. Ector Kessler MCHC 32.1 g/dl Normal 29.9-35.2 [facility] Comment on above: Performed By: #### C AGNIESZKA #### [facility] [address] [place] [address] Dr. Ector Kessler MCV 94.3 fL Critically high 80.0-94.0 [facility] Comment on above: Performed By: #### C AGNIESZKA #### [facility] [address] [place] [address] Dr. Ector Kessler METAMYELOCYTE # 0.0 103/ul Normal [facility] Comment on above: Performed By: #### C AGNIESZKA #### [facility] [address] [place] [address] Dr. Ector Kessler METAMYELOCYTE % 0 % Normal [facility] Comment on above: Performed By: #### C AGNIESZKA #### [facility] [address] [place] [address] Dr. Ector Kessler MONOM# 0.28 103/ul Critically low 0.30-0.80 [facility] Comment on above: Performed By: #### C AGNIESZKA #### [facility] [address] [place] [address] Dr. Ector Kessler MONOM% 1.0 % Critically low 1.7-12.0 [facility] Comment on above: Performed By: #### C AGNIESZKA #### [facility] [address] [place] [address] Dr. Ector Kessler MPV 10.5 fL Normal 9.5-13.5 [facility] Comment on above: Performed By: #### Yash AARON #### [facility] [address] [place] [address] Dr. Ector Kessler MYELOCYTE # 0.0 103/ul Normal [facility] Comment on above: Performed By: #### Yash AARON #### [facility] [address] [place] [address] Dr. Ector Kessler MYELOCYTE % 0 % Normal [facility] Comment on above: Performed By: #### Yash AARON #### [facility] [address] [place] [address] Dr. Ector Kessler NRBC 0 Normal [facility] Comment on above: Performed By: #### Yash AARON #### [facility] [address] [place] [address] Dr. Ector Kessler PLT 264 103/ul Normal 150-450 [facility] Comment on above: Performed By: #### Yash AARON #### [facility] [address] [place] [address] Dr. Ector Kessler RBC 4.73 106/ul Normal 4.70-6.10 [facility] Comment on above: Performed By: #### Yash AARON #### [facility] [address] [place] [address] Dr. Ector Kessler RDW 12.6 % Normal 11.0-15.0 [facility] Comment on above: Performed By: #### Yash AARON #### [facility] [address] [place] [address] Dr. Ector Kessler SEG # 8.27 103/ul Critically high 1.40-6.50 [facility] Comment on above: Performed By: #### C BCMAN #### [facility] [address] [place] [address] Dr. Ector Kessler SEG % 29.0 % Critically low 43.0-75.0 [facility] Comment on above: Performed By: #### C ALEEMAN #### [facility] [address] [place] [address] Dr. Ector Kessler WBC 28.5 103/ul Critically high 4.0-11.0 [facility] Comment on above: Performed By: #### C AGNIESZKA #### [facility] [address] [place] [address] Dr. Ector Kessler CRPon 09-24-2021 CRP [Mass/Vol] mg/L Normal <=1.0 [facility] Comment on above: Performed By: #### T SH, CRP, CMP #### [facility] [address] [place] [address] Dr. Ector Kessler FERRITINon 09-24-2021 Ferritin [Mass/Vol] 103.0 ng/mL Normal 26.0-388.0 [facility] Comment on above: Performed By: #### T SH, CRP, CMP #### [facility] [address] [place] [address] Dr. Ector Kessler FREE T4on 09-24-2021 Free T4 [Mass/Vol] 1.00 ng/dL Normal 0.76-1.46 [facility] Comment on above: Performed By: #### T SH, CRP, CMP #### [facility] [address] [place] [address] Dr. Ector Kessler IRON AND TIBCon 09-24-2021 % SATURATION 26.7 % Normal [facility] Comment on above: Performed By: #### T SH, CRP, CMP #### [facility] [address] [place] [address] Dr. Ector Kessler Iron [Mass/Vol] 74.0 ug/dL Normal 65.0-175.0 [facility] Comment on above: Performed By: #### T SH, CRP, CMP #### [facility] [address] [place] [address] Dr. Ector Kessler TIBC DIRECT 277.0 ug/dL Normal 250.0-450.0 [facility] Comment on above: Performed By: #### T SH, CRP, CMP #### [facility] [address] [address] [address] Ector Kessler PROF 14(COMP METB)on 022 Albumin [Mass/Vol] 3.9 g/dL Normal 3.4-5.0 [facility] Comment on above: Performed By: #### T ROSALBA, CRP, CMP #### [facility] [address] [place] [address] Dr. Ector Kessler Albumin/Globulin [Mass ratio] 1.3 {ratio} Normal [facility] Comment on above: Performed By: #### T ROSALBA CRP, CMP #### [facility] [address] [place] [address] Dr. Ector Kessler ALP [Catalytic activity/Vol] 65 U/L Normal 46-116 [facility] Comment on above: Performed By: #### T ROSALBA, CRP, CMP #### [facility] [address] [place] [address] Dr. Ector Kessler ALT [Catalytic activity/Vol] 22 U/L Normal 16-63 [facility] Comment on above: Performed By: #### T ROSALBA, CRP, CMP #### [facility] [address] [place] [address] Dr. Ector Kessler Anion gap [Moles/Vol] 14.7 mmol/L Normal [facility] Comment on above: Performed By: #### T ROSALBA, CRP, CMP #### [facility] [address] [place] [address] Dr. Ector Kessler AST [Catalytic activity/Vol] 14 U/L Critically low 15-37 [facility] Comment on above: Performed By: #### T SH, CRP, CMP #### [facility] [address] [place] [address] Dr. Ector Kessler Bilirubin [Mass/Vol] 0.7 mg/dL Normal 0.2-1.0 [facility] Comment on above: Performed By: #### T SH, CRP, CMP #### [facility] [address] [address] [address] Ector Kessler Calcium [Mass/Vol] 9.1 mg/dL Normal 8.5-10.1 [facility] Comment on above: Performed By: #### T SH, CRP, CMP #### [facility] [address] [address] [address] Ector Kessler Chloride [Moles/Vol] 104 mmol/L Normal 98-107 [facility] Comment on above: Performed By: #### T SH, CRP, CMP #### [facility] [address] [place] [address] Dr. Ector Kessler CO2 [Moles/Vol] 25.5 mmol/L Normal 21.0-32.0 [facility] Comment on above: Performed By: #### T SH, CRP, CMP #### [facility] [address] [place] [address] Dr. Ector Kessler Creatinine [Mass/Vol] 1.13 mg/dL Normal 0.70-1.30 [facility] Comment on above: Performed By: #### T SH, CRP, CMP #### [facility] [address] [place] [address] Dr. Ector Kessler EGFR-AF MACANESE >60 Normal >=60 [facility] Comment on above: Performed By: #### T SH, CRP, CMP #### [facility] [address] [place] [address] Dr. Ector Kessler EGFR-NON AF MACANESE >60 Normal >=60 [facility] Comment on above: Performed By: #### T SH, CRP, CMP #### [facility] [address] [place] [address] Dr. Ector Kessler Globulin (S) [Mass/Vol] 3.0 g/dL Normal [facility] Comment on above: Performed By: #### T SH, CRP, CMP #### [facility] [address] [place] [address] Dr. Ector Kessler Glucose [Mass/Vol] 184 mg/dL Critically high 74-106 [facility] Comment on above: Performed By: #### T SH, CRP, CMP #### [facility] [address] [place] [address] Dr. Ector Kessler Potassium [Moles/Vol] 4.2 mmol/L Normal 3.5-5.1 [facility] Comment on above: Performed By: #### T SH, CRP, CMP #### [facility] [address] [place] [address] Dr. Ector Kessler Protein [Mass/Vol] 6.9 g/dL Normal 6.4-8.2 [facility] Comment on above: Performed By: #### T SH, CRP, CMP #### [facility] [address] [place] [address] Dr. Ector Kessler Sodium [Moles/Vol] 140 mmol/L Normal 136-145 [facility] Comment on above: Performed By: #### T SH, CRP, CMP #### [facility] [address] [place] [address] Dr. Ector Kessler Urea nitrogen [Mass/Vol] 17.0 mg/dL Normal 7.0-18.0 [facility] Comment on above: Performed By: #### T SH, CRP, CMP #### [facility] [address] [place] [address] Dr. Ector Kessler Urea nitrogen/Creatinine [Mass ratio] 15.0 mg/mg Normal [facility] Comment on above: Performed By: #### T SH, CRP, CMP #### [facility] [address] [place] [address] Dr. Ector Kessler TSHon 09-24-2021 TSH 0.319 uIU/mL Critically low 0.358-3.740 [facility] Comment on above: Performed By: #### T SH, CRP, CMP #### [facility] [address] [place] [address] Dr. Ector Kessler VITAMIN B12on 09-24-2021 Cobalamin (Vitamin B12) [Mass/Vol] 364.0 pg/mL Normal 193.0-986.0 [facility] Comment on above: Performed By: #### T SH, CRP, CMP #### [facility] [address] [place] [address] Dr. Ector Kessler VITAMIN D 25 OHon 09-24-2021 VIT D 25-OH 29.6 ng/mL Normal [facility] Comment on above: Performed By: #### T SHWETA NAVARRETE, CMP #### [facility] [address] [place], [place] [address] Dr. Ector Kessler VIT D RANGES SEE BELOW Normal [facility] Comment on above: Result Comment: <20 ng/mL Vit D deficient 20 - <30 ng/mL Vit D insufficient 30 - 100 ng/mL Vit D sufficient >100 ng/mL Potential Toxicity Performed By: #### T ROSALBA, SHWETA, CMP #### [facility] [address] [address] [address] 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 Note: Microscopic examination reveals an asymmetric proliferation of nested and single atypical melanocytes along the dermal-epidermal junction. There is a rare nest of atypical melanocytes in the dermis. The melanocytes stain with antibodies against Melan-A and SOX-10. The SOX-10 and Melan-A stains indicate that the melanoma extends to the peripheral margin. There is dense solar elastosis. Electronically Signed Out by JOSE WHITNEY M.D. CANCER SUMMARY REPORT A. 6 SLIDES, [facility], #[id number] (BX: 01/25/2020): SPECIMEN Procedure: Biopsy, shave Specimen Laterality: Right TUMOR Tumor Site: Skin of other and unspecified parts of face: Right central confucianist Multiple Primary Sites: Additional primary site(s) present: Not applicable Histologic Type: Lentigo maligna melanoma Maximum Tumor ([place]) Thickness (Millimeters): 0.2 mm Ulceration: Not identified Anatomic ([place]y) Level: II (melanoma present in but does not fill and expand papillary dermis) Mitotic Rate: None identified Microsatellite(s): Not identified Lymphovascular Invasion: Not identified Neurotropism: Not identified Tumor-Infiltrating Lymphocytes: Not identified Tumor Regression: Not identified MARGINS Peripheral Margins: Negative for invasive melanoma Distance of Invasive Melanoma from Closest Peripheral Margin (Millimeters): 2.5 mm Location: Not possible Status of Melanoma in situ at Peripheral Margins: Melanoma in situ present at margin Location: Not possible Deep Margin: Negative for invasive melanoma Distance of Invasive Melanoma from Deep Margin (Millimeters): 0.6 mm Status of Melanoma in situ at Deep Margin: Melanoma in situ present at margin PATHOLOGIC STAGE CLASSIFICATION (pTNM, AJCC 8th Edition) Note: Reporting of pT categories is based on information available to the pathologist at the time the report is issued. As per the AJCC (Chapter 1, 8th Ed.) it is the managing physician?s responsibility to establish the final pathologic stage based upon all pertinent information, including but potentially not limited to this pathology report. Primary Tumor (pT): pT1a ADDITIONAL FINDINGS Additional Findings: None ADDITIONAL TESTING NEW CLIENT BANKING SERVICES CLERK BLOCKS: Normal Block: None Tumor Block: A1, A2 Electronically Signed Out By JOSE WHITNEY MD/GERBER Clinical History: 7 MM PAPULE, NEOPLASM OF UNSPECIFIED BEHAVIOR VS. MELANOMA VS. LENTIGO Specimens Submitted As: A: 6 SLIDES, [facility]Y [facility], #[id number] (BX: 01/25/2020) Gross Description: Received for consultation from [facility] are six slides labeled #[id number] (BX: 01/25/2020) along with the corresponding pathology report. Slide/Block Description 6 SLIDES, [id number]. Keep Slides: N Slides Returned: N Personal Consult: N Normal [facility] Comment on above: Performed By: #### D #### Dermatopathology Coding Summary.on 07-20-2019 Coding Summary. 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 However, the narrative phrase printed from the coding software may appear abbreviated, or result in slightly different terminology. Coded By: Yazmin Moreno Date Saved: 07/20/2019 09:38 am Normal [facility] Vital Signs Date Time Vital Sign Value Performing Clinician Facility 11-18-2024 09:09-0400 Body height 177.8 cm Ronald Ball DO Work Phone: [facility] 11-18-2024 09:09-0400 Body mass index (BMI) [Ratio] 28.4 kg/m2 Ronald Ball DO Work Phone: [facility] 11-18-2024 09:09-0400 Body weight 89.92 kg Ronald Ball DO Work Phone: [facility] 11-18-2024 09:09-0400 Diastolic blood pressure 72 mm[Hg] Ronald Ball DO Work Phone: [facility] 11-18-2024 09:09-0400 Heart rate 74 /min Ronald Ball DO Work Phone: [facility] 11-18-2024 09:09-0400 Respiratory rate 12 /min Ronald Ball DO Work Phone: [facility] 11-18-2024 09:09-0400 Systolic blood pressure 131 mm[Hg] Ronald Ball DO Work Phone: [facility] 10-20-2024 10:00-0400 Body height 177.8 cm Ronald Ball DO Work Phone: [facility] 10-20-2024 10:00-0400 Body mass index (BMI) [Ratio] 28.3 kg/m2 Ronald Ball DO Work Phone: [facility] 10-20-2024 10:00-0400 Body weight 89.35 kg Ronald Ball DO Work Phone: [facility] 10-20-2024 10:00-0400 Diastolic blood pressure 74 mm[Hg] Ronald Ball DO Work Phone: [facility] 10-20-2024 10:00-0400 Heart rate 74 /min Ronald Ball DO Work Phone: [facility] 10-20-2024 10:00-0400 Systolic blood pressure 131 mm[Hg] Ronald Ball DO Work Phone: [facility] 10-13-2024 09:08-0400 Body height 180.3 cm Israel Maravilla MD Work Phone: [facility] 10-13-2024 09:08-0400 Body mass index (BMI) [Ratio] 27.35 kg/m2 Israel Maravilla MD Work Phone: [facility] 10-13-2024 09:08-0400 Body temperature 97.81 [degF] Israel Maravilla MD Work Phone: [facility] 10-13-2024 09:08-0400 Body weight 88.9 kg Israel Maravilla MD Work Phone: [facility] 10-13-2024 09:08-0400 Diastolic blood pressure 77 mm[Hg] Israel Maravilla MD Work Phone: [facility] 10-13-2024 09:08-0400 Heart rate 66 /min Israel Maravilla MD Work Phone: [facility] 10-13-2024 09:08-0400 Respiratory rate 16 /min Israel Maravilla MD Work Phone: [facility] 10-13-2024 09:08-0400 SaO2% (BldA) [Mass fraction] 96 % Israel Maravilla MD Work Phone: [facility] 10-13-2024 09:08-0400 Systolic blood pressure 138 mm[Hg] Israel Maravilla MD Work Phone: [facility] 12-30-2023 08:45-0400 Body height 180.3 cm Vlad Juárez MD Work Phone: [facility] 12-30-2023 08:45-0400 Body mass index (BMI) [Ratio] 27.89 kg/m2 Vlad Juárez MD Work Phone: [facility] 12-30-2023 08:45-0400 Body weight 90.72 kg Vlad Juárez MD Work Phone: [facility] 12-30-2023 08:45-0400 Diastolic blood pressure 54 mm[Hg] Vlad Juárez MD Work Phone: [facility] 12-30-2023 08:45-0400 Systolic blood pressure 124 mm[Hg] Vlad Juárez MD Work Phone: [facility] 11-05-2023 10:38-0400 Body height 177.8 cm DO Ronald Ball Work Phone: [facility] 11-05-2023 10:38-0400 Body mass index (BMI) [Ratio] 28.5 kg/m2 DO Ronald Ball Work Phone: [facility] 11-05-2023 10:38-0400 Body weight 90.03 kg DO Ronald Ball Work Phone: [facility] 11-05-2023 10:38-0400 Diastolic blood pressure 71 mm[Hg] DO Ronald Ball Work Phone: [facility] 11-05-2023 10:38-0400 Heart rate 63 /min DO Ronald Ball Work Phone: [facility] 11-05-2023 10:38-0400 Respiratory rate 12 /min DO Ronald Ball Work Phone: [facility] 11-05-2023 10:38-0400 Systolic blood pressure 121 mm[Hg] DO Ronald Ball Work Phone: [facility] 10-23-2023 09:48-0400 Body mass index (BMI) [Ratio] 27.72 kg/m2 EMILY Hernandez MD Work Phone: [facility] 10-23-2023 09:48-0400 Body temperature 98.29 [degF] EMILY Hernandez MD Work Phone: [facility] 10-23-2023 09:48-0400 Body weight 90.1 kg EMILY Hernandez MD Work Phone: [facility] 10-23-2023 09:48-0400 Diastolic blood pressure 74 mm[Hg] EMILY Hernandez MD Work Phone: [facility] 10-23-2023 09:48-0400 Heart rate 66 /min EMILY Hernandez MD Work Phone: [facility] 10-23-2023 09:48-0400 Respiratory rate 16 /min EMILY Hernandez MD Work Phone: [facility] 10-23-2023 09:48-0400 SaO2% (BldA) [Mass fraction] 95 % EMILY Hernandez MD Work Phone: [facility] 10-23-2023 09:48-0400 Systolic blood pressure 128 mm[Hg] EMILY Hernandez MD Work Phone: [facility] 10-14-2023 15:01-0400 Body height 180.3 cm Wilver Ambrosio MD Work Phone: [facility] 10-14-2023 15:01-0400 Body mass index (BMI) [Ratio] 27.99 kg/m2 Wilver Ambrosio MD Work Phone: [facility] 10-14-2023 15:01-0400 Body temperature 97.81 [degF] Wilver Ambrosio MD Work Phone: [facility] 10-14-2023 15:01-0400 Body weight 91 kg Wilver Ambrosio MD Work Phone: [facility] 10-14-2023 15:01-0400 Diastolic blood pressure 77 mm[Hg] Wilver Ambrosio MD Work Phone: [facility] 10-14-2023 15:01-0400 Heart rate 71 /min Wilver Ambrosio MD Work Phone: [facility] 10-14-2023 15:01-0400 Respiratory rate 16 /min Wilver Ambrosio MD Work Phone: [facility] 10-14-2023 15:01-0400 SaO2% (BldA) [Mass fraction] 96 % Wilver Ambrosio MD Work Phone: [facility] 10-14-2023 15:01-0400 Systolic blood pressure 138 mm[Hg] Wilver Ambrosio MD Work Phone: [facility] 03-19-2023 14:00-0500 Body height 177.8 cm Ronald Vrvana Other [facility] [employer] Other 03-19-2023 14:00-0500 Body mass index (BMI) [Ratio] 28.92 kg/m2 Ronald Vrvana Other [employer] Other 03-19-2023 14:00-0500 Body weight 91.45 kg Ronald Ball Other [employer] Other 03-19-2023 14:00-0500 Diastolic blood pressure 74 mm[Hg] Ronald Ball Other [employer] Other 03-19-2023 14:00-0500 Systolic blood pressure 160 mm[Hg] Ronald Ball Other [employer] Other 11-05-2022 14:42-0400 Body height 180.3 cm Wilver Ambrosio MD Work Phone: [facility] 11-05-2022 14:42-0400 Body temperature 98.1 [degF] Wilver Ambrosio MD Work Phone: [facility] 11-05-2022 14:42-0400 Body weight 91.63 kg Wilver Ambrosio MD Work Phone: [facility] 11-05-2022 14:42-0400 Diastolic blood pressure 64 mm[Hg] Wilver Ambrosio MD Work Phone: [facility] 11-05-2022 14:42-0400 Heart rate 68 /min Wilver Ambrosio MD Work Phone: [facility] 11-05-2022 14:42-0400 Respiratory rate 16 /min Wilver Ambrosio MD Work Phone: [facility] 11-05-2022 14:42-0400 SaO2% (BldA) [Mass fraction] 97 % Wilver Ambrosio MD Work Phone: [facility] 11-05-2022 14:42-0400 Systolic blood pressure 128 mm[Hg] Wilver Ambrosio MD Work Phone: [facility] 10-17-2022 09:35-0400 Body temperature 96.49 [degF] EMILY Hernandez MD Work Phone: [facility] 10-17-2022 09:35-0400 Body weight 90.54 kg EMILY Hernandez MD Work Phone: [facility] 10-17-2022 09:35-0400 Diastolic blood pressure 77 mm[Hg] EMILY Hernandez MD Work Phone: [facility] 10-17-2022 09:35-0400 Heart rate 60 /min EMILY Hernandez MD Work Phone: [facility] 10-17-2022 09:35-0400 Respiratory rate 18 /min EMILY Hernandez MD Work Phone: [facility] 10-17-2022 09:35-0400 SaO2% (BldA) [Mass fraction] 96 % EMILY Hernandez MD Work Phone: [facility] 10-17-2022 09:35-0400 Systolic blood pressure 144 mm[Hg] EMILY Hernandez MD Work Phone: [facility] 06-27-2022 11:30-0400 Body height 177.8 cm Ronald Pollard Other [employer] Other 06-27-2022 11:30-0400 Body mass index (BMI) [Ratio] 28.72 kg/m2 Ronald Pollard Other [employer] Other 06-27-2022 11:30-0400 Body weight 90.81 kg Ronald Pollard Other [employer] Other 06-27-2022 11:30-0400 Diastolic blood pressure 71 mm[Hg] Ronald Pollard Other [employer] Other 06-27-2022 11:30-0400 Respiratory rate 12 /min Ronald Pollard Other [employer] Other 06-27-2022 11:30-0400 Systolic blood pressure 129 mm[Hg] Ronald Pollard Other [employer] Other 03-28-2020 08:17-0500 BP Diastolic 83 mm[Hg] Marcin Preciado [facility] 03-28-2020 08:17-0500 BP Systolic 153 mm[Hg] Marcin Preciado [facility] Encounters Encounter Date Encounter Type Care Provider Facility Start: 11-18-2024 End: 11-18-2024 ambulatory Ronald Pollard DO Work Phone: [facility] Work Phone: Start: 11-18-2024 End: 11-18-2024 Patient encounter procedure Ronald Silvana -[facility] Work Phone: Start: 11-18-2024 End: 11-18-2024 Patient encounter status Ronald Pollard DO [facility] Start: 10-20-2024 End: 10-20-2024 Patient encounter procedure Crow Abdullahi MD -[facility] Work Phone: Start: 10-20-2024 End: 10-20-2024 ambulatory Ronald Pollard DO Work Phone: [facility] Work Phone: Start: 10-13-2024 End: 10-13-2024 Office outpatient visit 15 minutes G Jorge Hernandez MD Work Phone: Radiation Oncology Comment on above: History of cancer of larynx (Primary Dx) Start: 10-13-2024 End: 10-13-2024 Office outpatient visit 25 minutes Israel Maravilla MD Work Phone: Hematology/Oncology Comment on above: CLL (chronic lymphoc ytic leukemia) (HCC) (Primary Dx); Personal history of malignant neoplasm of larynx; Unilateral inguinal hernia without obstruction or gangrene, recurrence not specified; Presence of right artificial hip joint Start: 10-13-2024 Non-patient / Non-visit Adeel angel PLATE WORKER-C -[facility] Work Phone: Start: 10-13-2024 End: 10-13-2024 ambulatory Juancarlos HERNANDEZ Facility:[facility] Start: 10-06-2024 End: 10-06-2024 Telephone encounter Israel Maravilla MD Work Phone: Hematology/Oncology Comment on above: Lab Orders Start: 09-29-2024 End: 09-29-2024 ambulatory Ronald Ball DO Work Phone: [facility] Work Phone: Start: 09-29-2024 End: 09-29-2024 Patient encounter procedure Jesse Tidwell MD -[facility] Work Phone: Start: 08-23-2024 Non-patient / Non-visit Jesse Tidwell MD -[facility] Work Phone: Start: 08-23-2024 End: 08-23-2024 ambulatory [facility] Work Phone: Start: 08-23-2024 End: 08-23-2024 Patient encounter procedure [facility] Work Phone: Start: 08-04-2024 End: 08-04-2024 Patient encounter procedure [facility] Work Phone: Start: 04-13-2024 End: 04-13-2024 ambulatory Ronald Ball DO Work Phone: [facility] Work Phone: Start: 04-13-2024 End: 04-13-2024 Patient encounter procedure Ronald Ball DO Work Phone: [facility] Work Phone: Start: 04-05-2024 Non-patient / Non-visit Benjam in Ball DO Work Phone: [facility] Work Phone: Start: 04-05-2024 End: 04-05-2024 Patient encounter procedure Ronald Ball DO Work Phone: [facility] Work Phone: Start: 03-25-2024 End: 03-25-2024 ambulatory Ronald Ball DO Work Phone: [facility] Work Phone: Start: 03-25-2024 End: 03-25-2024 Patient encounter procedure Ronald Ball DO Work Phone: [facility] [place] [facility] Start: 12-30-2023 End: 12-30-2023 Bamboo flowsheet Vlad Juárez MD Work Phone: [facility] Start: 12-30-2023 End: 12-30-2023 Bamboo flowsheet Vlad Juárez MD Work Phone: [facility] Start: 12-30-2023 End: 12-30-2023 Patient encounter procedure Vlad Juárez MD Work Phone: [facility] Comment on above: 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) Start: 12-30-2023 End: 12-30-2023 ambulatory VLAD Victoria JUÁREZ Not Available Start: 11-11-2023 Non-patient / Non-visit DO Brendan Pollard Work Phone: [facility] Work Phone: Start: 11-11-2023 End: 11-11-2023 ambulatory DO Ronald Pollard Work Phone: [facility] Work Phone: Start: 11-11-2023 End: 11-11-2023 Departed Referred DO Ronald Pollard Work Phone: [facility] Start: 11-05-2023 End: 11-05-2023 Patient encounter procedure DO Ronald Pollard Work Phone: [facility] Work Phone: Start: 10-23-2023 End: 10-23-2023 ambulatory RONALD POLLARD Facility:[facility] Start: 10-23-2023 End: 10-23-2023 Patient encounter procedure Juancarlos Hernandez MD Work Phone: Radiation Oncology Comment on above: History of cancer of larynx (Primary Dx) Start: 10-14-2023 End: 10-14-2023 ambulatory Wilver Ambrosio MD Work Phone: Hematology/Oncology Comment on above: CLL (chronic lymphoc ytic leukemia) (HCC) (Primary Dx) Start: 10-14-2023 End: 10-14-2023 Patient encounter procedure Wilver Ambrosio MD Work Phone: Hematology/Oncology Start: 10-14-2023 Non-patient / Non-visit DO Brendan Pollard Work Phone: [facility] Work Phone: Start: 06-30-2023 End: 06-30-2023 ambulatory VLAD Kessler TIMMIS Not Available Start: 03-31-2023 End: 03-31-2023 ambulatory VLAD Kessler TIMMIS Not Available Start: 03-19-2023 End: 03-19-2023 ambulatory Ronald Pollard Other [employer] Other Start: 03-19-2023 Office outpatient vi sit 15 minutes Ronald Pollard [facility] Start: 01-09-2023 End: 01-09-2023 ambulatory Jesse Alberts Other [employer] Other Start: 01-09-2023 Office outpatient vi sit 25 minutes Jesse Alberts [facility] Start: 01-03-2023 End: 01-03-2023 ambulatory Jesse Alberts Other [employer] Other Start: 01-03-2023 Telephone encounter Jesse Alberts [facility] Start: 11-05-2022 End: 11-05-2022 ambulatory Wilver Ambrosio MD Work Phone: Hematology/Oncology Comment on above: CLL (chronic lymphoc ytic leukemia) (HCC) (Primary Dx) Start: 11-05-2022 End: 11-05-2022 Patient encounter procedure Wilver Ambrosio MD Work Phone: [place] Start: 10-17-2022 End: 10-17-2022 Patient encounter procedure Juancarlos Hernandez MD Work Phone: Radiation Oncology Comment on above: Larynx cancer (HCC) (Primary Dx); Radiation sickness, unspecified, initial encounter Start: 07-01-2022 End: 07-02-[address] RONALD POLLARD Facility:[facility] Start: 06-27-2022 End: 06-27-2022 ambulatory Ronald Pollard Other [employer] Other Start: 06-27-2022 Patient encounter procedure Ronald Pollard [facility] Start: 06-12-2022 End: 06-12-2022 ambulatory Jesse Alberts Other [employer] Other Start: 06-12-2022 Telephone encounter Jesse Bauer [facility] Start: 04-04-2022 End: 04-04-2022 ambulatory Jesse Alberts Other [employer] Other Start: 04-04-2022 Telephone encounter Jesse Bauer [facility] Start: 01-07-2022 End: 01-07-2022 ambulatory Jesse Alberts Other [employer] Other Start: 01-07-2022 Office outpatient vi sit 15 minutes Jesse Alberts [facility] Start: 12-17-2021 (Procedure) Short Jesse Alberts [facility] Start: 12-17-2021 End: 12-17-2021 ambulatory Jesse Alberts Other [employer] Other Start: 11-12-2021 End: 11-12-2021 ambulatory Jesse Alberts Other [employer] Other Start: 11-12-2021 Office outpatient vi sit 25 minutes Jesse Alberts [facility] Start: 11-12-2021 End: 11-12-2021 Patient encounter procedure DO Ronald Pollard Work Phone: [facility] Start: 10-29-2021 End: 10-30-[address] RONALD POLLARD Facility:[facility] Start: 09-26-[address] RONALD POLLARD Facili ty:[facility] Start: 09-24-2021 End: 09-25-[address] RONALD POLLARD Facility:[facility] Start: 06-22-2021 Adult health examination Jesse Alberts Other [employer] Other Start: 01-31-2021 (Procedure) Short Jesse Alberts [facility] Start: 01-31-2021 End: 01-31-2021 ambulatory Jesse Alberts Other [employer] Other Start: 01-22-2021 End: 01-22-2021 ambulatory Jesse Alberts Other [employer] Other Start: 01-22-2021 Office outpatient vi sit 25 minutes Jesse Alberts [facility] Start: 04-10-2020 Marcin Preciado Dep [facility] Procedures Date Procedure Procedure Detail Performing Clinician Start: 10-20-2024 Plain X-ray of right hip Ronald Ball DO Work Phone: Start: 04-13-2024 X-ray of right knee, two views Ronald Ball DO Work Phone: Start: 03-25-2024 Plain X-ray of right hip Ronald Ball DO Work Phone: Start: 07-01-[address] LONG [facility] [employer] Comment on above: Performed By: #### T SH, CRP, CMP #### [facility] [address] [place] [address] Dr. Ector Kessler Start: 11-12-2021 X-ray of lumbar spin e, four views DO [employer] Work Phone: Start: 03-28-2020 Mohs micrographic h/n/h/f/g 1st stage 5 blocks Marcin Preciado Start: 02-20-2015 Screening for malign ant neoplasm of colon Jesse Alberts Other Start: 02-20-2015 Screening for malign ant neoplasm of prostate Jesse Alberts Other Depression screening Jesse Alberts Other Screening for malign ant neoplasm of prostate Jesse Alberts Other Plan of Treatment Date Care Activity Detail Author Start: 06-14-2031 Urine microalbumin profile [facility] Start: 10-14-2027 Diabetes Screening Diabetes Screenin [facility] Start: 10-13-2026 Diabetes Screening Diabetes Screenin [facility] Start: 11-05-2025 DIABETES SCREEN DIABETES SCREEN [facility] Start: 10-13-2025 End: 10-13-2025 CBC W Auto Differential panel - Blood COMPLETE BLOOD COUNT AND DIFFERENTIAL Lab Routine CLL (chronic lymphocytic leukemia) (HCC) Expected: 10/13/2025 (Approximate), Expires: 10/13/2025 [facility] Comment on above: Expected: 10/13/2025 (Approximate), Expires: 10/13/2025 Start: 10-13-2025 End: 10-13-2025 Comprehensive metabolic 2000 panel - Serum or Plasma COMPREHENSIVE METABOLIC PANEL Lab Routine CLL (chronic lymphocytic leukemia) (HCC) Expected: 10/13/2025 (Approximate), Expires: 10/13/2025 [facility] Comment on above: Expected: 10/13/2025 (Approximate), Expires: 10/13/2025 Start: 10-13-2025 End: 10-13-2025 Lactate dehydrogenase [Enzymatic activity/volume] in Serum or Plasma LACTATE DEHYDROGENASE Lab Routine CLL (chronic lymphocytic leukemia) (HCC) Expected: 10/13/2025 (Approximate), Expires: 10/13/2025 [facility] Work Phone: Comment on above: Expected: 10/13/2025 (Approximate), Expires: 10/13/2025 Start: 10-13-2025 End: 01-12-2026 Urate [Mass/volume] in Serum or Plasma URIC ACID Lab Routine CLL (chronic lymphocytic leukemia) (HCC) Expected: 10/13/2025 (Approximate), Expires: 01/12/2026 [facility] Comment on above: Expected: 10/13/2025 (Approximate), Expires: 01/12/2026 Start: 10-13-2025 End: 10-13-2025 Follow-up encounter 10/13/2025 10:20 AM EDT Visit (SP) Office Hematology/Oncology [address] [place] [address] [place] [address] Israel Maravilla MD [address] [place] [address] 1 year follow up with lab Hematology/Oncology Comment on above: 1 year follow up wit h lab Start: 10-13-2025 End: 10-13-2025 Patient encounter procedure 10/13/2025 10:00 AM EDT Office Visit [facility] [address] [address] 1 year follow up with lab [facility] Comment on above: 1 year follow up wit h lab Start: 12-28-2024 End: 12-28-2024 Patient encounter procedure 12/28/2024 9:00 AM EDT Office Visit [facility] [address] [facility] [address] [place] [address] Vlad Juárez MD [address] [facility] [address] [place] [address] [facility] Start: 11-15-2024 Influenza vaccination Influenza Vacc ine (#1) [facility] Start: 11-05-2024 Screening for malign ant neoplasm of colon [facility] Start: 10-20-2024 Plain X-ray of right hip XR hi p RT min 2V(w/wo pelvis)* [facility] Start: 10-20-2024 XR Hip - right 2 Views [facility] Start: 10-13-2024 End: 10-13-2024 Follow-up encounter 10/13/2024 9:20 AM EDT Visit (SP) Office Hematology/Oncology [address] [address] Israel Maravilla MD [address] [address] 1 year follow up with labSEES NICKO AFTER Hematology/Oncology Comment on above: 1 year follow up wit labSEES NICKO AFTER Start: 10-13-2024 End: 10-13-2024 Patient encounter procedure [facility] Comment on above: 1 year follow up wit h lab 1 yr rv// SEES [facility] PRIOR Start: 10-11-2024 End: 10-11-2024 Follow-up encounter 10/11/2024 10:15 AM EDT Visit (SP) Office Hematology/Oncology [address] [place] [address] Israel Maravilla MD [address] [place] [address] [place] [address] 1 year follow up with lab Hematology/Oncology Comment on above: 1 year follow up wit h lab Start: 10-11-2024 End: 10-11-2024 Patient encounter procedure [facility] Comment on above: 1 year follow up wit h lab 1 yr rv// pt seeing vikt today also Start: 10-06-2024 End: 01-05-2025 CBC W Auto Differential panel - Blood COMPLETE BLOOD COUNT AND DIFFERENTIAL Lab Routine CLL (chronic lymphocytic leukemia) (HCC) Expected: 10/06/2024, Expires: 01/05/2025 [facility] Work Phone: Comment on above: Expected: 10/06/2024 , Expires: 01/05/2025 Start: 10-06-2024 End: 01-05-2025 Comprehensive metabolic 2000 panel - Serum or Plasma COMPREHENSIVE METABOLIC PANEL Lab Routine CLL (chronic lymphocytic leukemia) (HCC) Expected: 10/06/2024, Expires: 01/05/2025 [facility] Comment on above: Expected: 10/06/2024 , Expires: 01/05/2025 Start: 10-06-2024 End: 01-05-2025 Lactate dehydrogenase [Enzymatic activity/volume] in Serum or Plasma LACTATE DEHYDROGENASE Lab Routine CLL (chronic lymphocytic leukemia) (HCC) Expected: 10/06/2024, Expires: 01/05/2025 [facility] Comment on above: Expected: 10/06/2024 , Expires: 01/05/2025 Start: 09-29-2024 Patient referral [facility] Work Phone: Start: 03-17-2024 Advance Directive Discussion Advance Directive Discussion [facility] Start: 2024 RSV Vaccine (1 - 1-d ose 75+ series) RSV Vaccine (1 - 1-dose 75+ series) [facility] Start: 12-30-2023 End: 12-30-2023 Patient encounter procedure 12/30/2023 8:40 AM EDT Office Visit [facility] [address] [place] [address] Vlad Juárez MD [address] [facility] [address] [place] [address] Arrived [facility] Comment on above: Arrived Start: 11-16-2023 Influenza vaccination Influenza Vacc ine (#1) [facility] Start: 11-06-2023 End: 01-06-2024 CBC W Auto Differential panel - Blood CBC + DIFF Lab Routine CLL (chronic lymphocytic leukemia) ([facility]) Expected: 11/06/2023 (Approximate), Expires: 01/06/2024 [facility] Work Phone: Comment on above: Expected: 11/06/2023 (Approximate), Expires: 01/06/2024 Start: 11-06-2023 End: 01-06-2024 Comprehensive metabolic 2000 panel - Serum or Plasma COMP METABOLIC PANEL Lab Routine CLL (chronic lymphocytic leukemia) ([facility]) Expected: 11/06/2023 (Approximate), Expires: 01/06/2024 [facility] Work Phone: Comment on above: Expected: 11/06/2023 (Approximate), Expires: 01/06/2024 Start: 11-06-2023 End: 01-06-2024 Lactate dehydrogenase [Enzymatic activity/volume] in Serum or Plasma LD LACTATE DEHYDRO Lab Routine CLL (chronic lymphocytic leukemia) ([facility]) Expected: 11/06/2023 (Approximate), Expires: 01/06/2024 [facility] Work Phone: Comment on above: Expected: 11/06/2023 (Approximate), Expires: 01/06/2024 Start: 10-23-2023 End: 10-23-2023 Patient encounter procedure 10/23/2023 10:00 AM EDT Office Visit Radiation Oncology [phone] [address] Juancarlos Hernandez MD [phone] [place] [address] Hernandez appointment as originally scheduled. Radiation Oncology Comment on above: Keeping Dr. Hernandez appointment as originally scheduled. Start: 10-04-2023 DIABETES SCREEN DIABETES SCREEN [facility] Start: 04-19-2023 End: 06-19-2023 Thyrotropin [Units/volume] in Serum or Plasma TSH BLD Lab Routine Larynx cancer (HCC) Radiation sickness, unspecified, initial encounter Expected: 04/19/2023 (Approximate), Expires: 06/19/2023 [facility] Work Phone: Comment on above: Expected: 04/19/2023 (Approximate), Expires: 06/19/2023 Start: 04-19-2023 End: 06-19-2023 Thyroxine (T4) [Mass/volume] in Serum or Plasma T4/THYROXINE BLOOD Lab Routine Larynx cancer (HCC) Radiation sickness, unspecified, initial encounter Expected: 04/19/2023 (Approximate), Expires: 06/19/2023 [facility] Work Phone: Comment on above: Expected: 04/19/2023 (Approximate), Expires: 06/19/2023 Start: 03-17-2023 Advance Directive Discussion Advance Directive Discussion [facility] Start: 02-14-2023 Covid-19 Vaccine () Covid-19 Vaccine () [facility] Start: 11-15-2022 Influenza vaccination INFLUENZA (#1) [facility] Start: 03-17-2022 ADVANCE DIRECTIVE DISCUSSION ADVANCE DIRECTIVE DISCUSSION [facility] Start: 03-17-2022 DEPRESSION ASSESSMENT DEPRESSION ASS ESSMENT [facility] Start: 03-12-2022 COVID-19 VACCINE (6 - Pfizer risk series) COVID-19 VACCINE (6 - Pfizer risk series) [facility] Start: 12-19-2016 PNEUMOCOCCAL: 65+ (2 - PCV) PNEUMOCOCCAL: 65+ (2 - PCV) [facility] Start: 02-14-2014 Medicare Annual Well ness Visit Medicare Annual Wellness Visit [facility] Start: 2009 RSV Vaccine (1 - 1-d ose 60+ series) RSV Vaccine (1 - 1-dose 60+ series) [facility] Start: 1994 COLOGUARD (FIT-DNA) COLOGUARD (FIT-D NA) [facility] Start: 1994 Colonoscopy COLONOSCOPY [facility] Start: 1994 COLORECTAL CANCER SCREENING COLORECTAL CANCER SCREENING [facility] Start: [address] COLONOGRAPHY [facility] Start: 1994 FECAL OCCULT BLOOD FECAL OCCULT BLOO D [facility] Start: 1994 Screening for malign ant neoplasm of colon [facility] Start: 1994 SIGMOIDOSCOPY SIGMOIDOSCOPY [facility] Start: 1984 Lipid panel Lipid Screening [facility] Start: 1984 LIPID SCREEN LIPID SCREEN [facility] Start: 1968 SHINGRIX VACCINE (1 of 2) SHINGRIX VACCINE (1 of 2) [facility] Start: 1967 Anxiety Screening Anxiety Screening [facility] Start: 1967 Depression Screening Depression Scre ening [facility] Start: 1967 HEPATITIS C SCREENING HEPATITIS C [facility] Start: 1967 Hepatitis C screening Hepatitis C [facility] Start: 1949 Screening for malign ant neoplasm of colon [facility] Comprehensive metabo lic 1999 panel - Serum or Plasma [facility] Comprehensive metabo lic 1999 panel - Serum or Plasma [facility] Hemoglobin [Mass/vol ume] in Blood [facility] Patient referral [facility] Work Phone: [facility] Immunizations Immunization Date Immunization Notes Care Provider [facility] 01-19-2024 Seasonal trivalent influenza vaccine, adjuvanted, preservative free EMILY Hernandez MD Work Phone: [facility] 01-19-2024 influenza virus vaccine, unspecified formulation EMILY Hernandez MD Work Phone: [facility] 12-20-2022 influenza (aIIV4) vaccine, age 65+ yr, quadrivalent, PF (FLUAD QUAD) Wilver Ambrosio MD Work Phone: [facility] 12-20-2022 influenza virus vaccine, unspecified formulation Wilver Ambrosio MD Work Phone: [facility] 01-15-2022 COVID-19 Pfizer (bivalent) Ronald Pollard Other [facility] 01-15-2022 influenza (HD-IIV4) vaccine, age 65+ yr, high dose, quadrivalent, PF (FLUZONE HIGH-DOSE) Wilver Ambrosio MD Work Phone: [facility] 01-15-2022 influenza virus vaccine, unspecified formulation DO Ronald Pollard Work Phone: [facility] 01-15-2022 SARS-CoV-2, Unspecified Eva Juárez MD Work Phone: [facility] 01-15-2022 influenza, high dose seasonal, preservative-free Ronald Pollard Other [employer] Other 06-18-2021 COVID-19 Pfizer Ronald chun Other [facility] 06-13-2021 diphtheria, tetanus toxoids and pertussis vaccine Ronald Pollard Other [facility] 12-04-2020 influenza (HD-IIV4) vaccine, age 65+ yr, high dose, quadrivalent, PF (FLUZONE HIGH-DOSE) EMILY Hernandez MD Work Phone: [facility] 11-14-2020 COVID-19 Vaccine Pfi zer - Documentation Purposes Only Ronald Pollard Other [facility] 05-12-2020 COVID-19 Vaccine Pfi zer - Documentation Purposes Only Ronald Pollard Other [facility] 04-20-2020 COVID-19 Vaccine Pfi zer - Documentation Purposes Only Ronald Pollard Other [facility] 12-01-2019 influenza virus vaccine, split virus (incl. purified surface antigen) Jesse Alberts Other [employer] Other 12-01-2019 influenza virus vaccine, unspecified formulation DO Ronald Pollard Work Phone: [facility] 12-01-2019 influenza, high dose seasonal, preservative-free EMILY Hernandez MD Work Phone: [facility] 12-01-2019 influenza, injectabl e, quadrivalent, preservative free EMILY Hernandez MD Work Phone: [facility] 12-25-2018 AS03 adjuvant EMILY Hernandez MD Work Phone: [facility] 12-25-2018 Seasonal trivalent influenza vaccine, adjuvanted, preservative free EMILY Hernandez MD Work Phone: [facility] 12-23-2017 influenza virus vaccine, split virus (incl. purified surface antigen) Jesse Alberts Other [facility] [employer] Other 12-23-2017 influenza virus vaccine, unspecified formulation DO Ronald Pollard Work Phone: [facility] 12-23-2017 Seasonal trivalent influenza vaccine, adjuvanted, preservative free EMILY Hernandez MD Work Phone: [facility] 12-24-2016 influenza, injectabl e, quadrivalent, preservative free EMILY Hernandez MD Work Phone: [facility] 12-18-2016 influenza virus vaccine, split virus (incl. purified surface antigen) Jesse Alberts Other [employer] Other 12-18-2016 influenza virus vaccine, unspecified formulation DO Ronald Pollard Work Phone: [facility] 12-20-2015 influenza, injectabl e, quadrivalent, preservative free EMILY Hernandez MD Work Phone: [facility] 12-20-2015 pneumococcal polysaccharide vaccine, 23 valent Ronald Pollard Other [facility] 12-20-2015 tetanus and diphther ia toxoids, adsorbed, preservative free, for adult use (5 Lf of tetanus toxoid and 2 Lf of diphtheria toxoid) Jesse Alberts Other [facility] 02-20-2015 pneumococcal conjuga te vaccine, 13 valent Ronald Silvana Other [facility] 01-18-2008 tetanus toxoid, redu folra diphtheria toxoid, and acellular pertussis vaccine, adsorbed EMILY Hernandez MD Work Phone: [facility] 1950 pneumococcal conjuga te vaccine, 7 valent EMILY Hernandez MD Work Phone: [facility] 1950 pneumococcal conjuga te vaccine, 7 valent [facility] Payers Date Payer Category Payer [employer] others) [id number] 2024 [employer] ( [employer] others) [id number] 2014 Medicare [id number] 2014 () [id number] 2011 Government (not [facility] care or Medicaid) FOR LIFE [id number] 2011 Unknown FOR LIFE [id number] 2011-Present [phone] [address] [place] [address] Indemnity [id number] 1959 [employer] ( and others) [id number] 1959 Medicare [id number] 1959 Self-pay [id number] 1949 Unknown [id number] 1949 Unknown [id number] 1949 Unknown [id number] 1949 Unknown [id number] 1949 Unknown [id number] 1949 Unknown [id number] 1949 Unknown [id number] Medicare Medicare Nonpatient [id number] [id number] Unknown [id number] Unknown [id number] Unknown [id number] Unknown [id number] Social History Date Type Detail Facility Start: 04-10-2020 Dept. of ermatology Start: 1950 Sex Assigned At Male F [facility] Start: 10-30-2021 End: 10-17-2022 Sex Assigned At [facility] Start: 03-03-2013 End: 10-30-2021 Tobacco smoking status NHIS Never smoked tobacco [facility] Start: 10-30-2021 End: 08-08-2022 Tobacco use and exposure Smokeless tobacco non-user [facility] Start: 10-30-2021 End: 10-23-2023 Alcohol intake Lifetime non-drinker (finding) [facility] Start: 10-30-2021 End: 10-17-2022 History of Social function [facility] Adult Depression Screening Assessment 0 [facility] Start: 08-04-2019 Gender identity Identifies as male gender (finding) [facility] Start: 08-04-2019 Sexual orientation Heterosexual (fin ding) [facility] Start: 06-30-2023 End: 12-30-2023 Alcoholic beverage intake Current drinker of alcohol (finding) [facility] How often to you hav e a drink containing alcohol? 4 or more times a week [facility] How many standard drinks containing alcohol do you have on a typical day? 1 or 2 [facility] How often do you hav e 6 or more drinks on 1 occasion? Never [facility] Start: 08-21-2022 Alcohol Comment 1-2 drinks for >4x a week in the past year, Caffeine intake: 1-2 cups per day [facility] Start: 1950 Sex assigned at Not on file [facility] Start: 03-26-2024 End: 04-14-2024 Sex Patient sex unknown (finding) [facility] Start: 08-24-2024 Sex Male (finding) [facility] NEGATED: Highlighted rowStart: CLAUDIAF History of tobacco use Passive smoker [facility] Goals Date Patient Goal Desired Activity /State Functional Status Date Assessment Result Facility 08-31-2014 Are you deaf, or do you have serious difficulty hearing No 08/31/2014 9:10 AM EDT TessMichaelRufina No [facility] 08-31-2014 Are you blind, or do you have serious difficulty seeing, even when wearing glasses No 08/31/2014 9:10 AM EDT Rufina Pulido [facility] 08-31-2014 Do you have serious difficulty walking or climbing stairs No 08/31/2014 9:10 AM EDT Rufina Pulido [facility] 08-31-2014 Do you have difficul ty dressing or bathing No 08/31/2014 9:10 AM EDT Rufina Pulido [facility] 08-31-2014 Because of a physica l, mental, or emotional condition, do you have difficulty doing errands alone such as visiting a physician's office or shopping No 08/31/2014 9:10 AM EDT Rufina Pulido [facility] Mental Status Date Assessment Result Facility 08-31-2014 Because of a physica l, mental, or emotional condition, do you have serious difficulty concentrating, remembering, or making decisions No 08/31/2014 9:10 AM EDT Rufina Pulido [facility] Clinical Notes 05-16-2019 to 10-13-2024 Juancarlos Hernandez MD - 10/13/2024 9:46 AM EDTPatient Israel Shukla MD - 10/13/2024 9:20 AM EDTTelephone Avelina - Lucy Murcia MA - 10/06/2024 9:27 AM EDT Note Date & Type Note Facility 10-13-2024 Note HNO ID: [id number] Author: Juancarlos HERNANDEZ MD Service: ? Author Type: Physician Type: Progress Notes Filed: 10/13/2024 10:18 Note Text: Radiation Oncology - Follow Up Note PATIENT [...] without significant findings. LABORATORY: Latest Reference Range AND Units 06/08/20 09:14 10/03/20 11:31 10/10/22 08:45 [...] ) BSA 2.11 BMI 27.35 Temp 36.6 ?C (97.8 ?F) Pulse 66 Resp 16 BP 138/77 SpO2 [...] He has continued close follow-up with Dr. Juárez. He is now 5 years out from treatment. No postradiation issues. Plan to see patient back on an as needed basis. Your 2. Chronic lymphocytic leukemia diagnosed Clinical stage I disease. Current therapy is observation an is seeing Dr. Maravilla. Signed by: Juancarlos Hernandez MD cc: Ronald Pollard MD ([facility]) Dr. Juárez Portions of the above note extracted and edited from previous visit as well as active information included in the EMR. [facility] 10-13-2024 History of Present illness Narrative Radiation Oncology - Follow Up Note PATIENT [...] ) BSA 2.11 BMI 27.35 Temp 36.6 C (97.8 F) Pulse 66 Resp 16 BP 138/77 SpO2 [...] He has continued close follow-up with Dr. Juárez. He is now 5 years out from treatment. No postradiation issues. Plan to see patient back on an as needed basis. Your 2. Chronic lymphocytic leukemia diagnosed Clinical stage I disease. Current therapy is observation an is seeing Dr. Maravilla. Signed by: Juancarlos Hernandez MD cc: Ronald Pollard MD ([facility]) Dr. Juárez Portions of the above note extracted and edited from previous visit as well as active information included in the EMR. documented in this encounter [facility] 10-13-2024 Instructions Israel Maravilla MD - 10/13/2024 9:38 AM EDT RTC in 1 year labs same day. We discussed your chronic lymphocytic leukemia (CLL): - Your lab results today show a white blood cell count of 15,000, hemoglobin of 13.9, and platelets of 207. These results are consistent with your [...] including significant weight loss (more than 15%), drenching night sweats, or noticeable lymph node swelling. Let [...] contact our office. documented in this encounter [facility] 10-13-2024 History of Present illness Narrative Images from the original note were not included. NAME: Kerwin Avila CLINIC NO.: [id number] DATE OF SERVICE: October 13, 2024 (Stanislaw) Some elements in this clinic note that are critical to medical decision making have been carefully reviewed and included from a prior clinic note dated: October 07, 2023 (Daily) Referring Provider: Wilver Ambrosio Additional Clinicians involved in Kerwin Avila's care: Allyson Hernandez DIAGNOSIS: CLL CASE SUMMARY [...] labs show WBC count of 15,000, hemoglobin 13.9, and platelets 207, indicating stable bone marrow function. [...] October 16, 2024: transition of care On 2020, patient completed treatment for laryngeal cancer and has been following up with Dr. Garces. Patient was diagnosed with Gallegos stage 0 chronic lymphocytic leukemia (CLL) over a year ago, characterized by elevated lymphocyte counts. Recent labs from today show a WBC count of 15,000 cells/ L, hemoglobin at 13.9 g/dL, and platelets at 207,000/ L, indicating stable hematologic parameters. Patient denies any significant weight loss, night sweats, or noticeable lymphadenopathy. He is scheduled for a hip replacement next week due to chronic hip pain that has not responded to recent injections. He also has an inguinal hernia that is not currently causing symptoms. (Today) CBC: - WBC: 15 x10^3/ L - Hemoglobin: 13.9 g/dL - Platelets: 207 x10^3/ L REVIEW OF SYSTEMS Per HPI and otherwise [...] Nonfocal to gross visualization. Alert and oriented 3. Psychiatric: No evidence of inappropriate anxiety or [...] which included preparing to see the patient, [id number] patient care, completing clinical documentation, obtaining and/or reviewing separately obtained history, performing a medically appropriate examination, counseling and educating the patient/family/caregiver, ordering medications, tests, or procedures, independently interpreting results (not separately reported), communicating results to the patient/family/caregiver, and care coordination (not separately reported). Israel Maravilla MD, CPE Hematology and Oncology Services Provided at: [place], [place] CC: Ronald Pollard DO documented in this encounter [facility] 10-13-2024 Note HNO ID: [id number] Author: ISRAEL MARAVILLA MD Service: ? Author Type: Physician Type: Progress Notes Filed: 10/16/2024 10:15 Note Text: NAME: Kerwin Avila [facility] NO.: [id number] DATE OF SERVICE: October 13, 2024 (Stanislaw) Some elements in this clinic note that are critical to medical decision making have been carefully reviewed and included from a prior clinic note dated: October 07, 2023 (Daily) Referring Provider: Wilver Ambrosio Additional Clinicians involved in Kerwin Avila's care: Allyson Hernandez DIAGNOSIS: CLL CASE SUMMARY [...] labs show WBC count of 15,000, hemoglobin 13.9, and platelets 207, indicating stable bone marrow function. [...] today show a WBC count of 15,000 cells/?L, hemoglobin at 13.9 g/dL, and platelets at 207,000/?L, indicating stable hematologic parameters. Patient denies any significant weight loss, night sweats, or noticeable lymphadenopathy. He is scheduled for a hip replacement next week due to chronic hip pain that has not responded to recent injections. He also has an inguinal hernia that is not currently causing symptoms. (Today) CBC: - WBC: 15 x103/?L - Hemoglobin: 13.9 g/dL - Platelets: 207 x103/?L REVIEW OF SYSTEMS Per HPI and otherwise negative by full review of organ systems. ECOG PERFORMANCE STATUS: 0 PHYSICAL EXAMINATION: Vitals: BP 138/77 Pulse 66 Temp (Src) 97.8 (Temporal) Resp 16 Ht 5' 10.984 (1.80m) Wt 195 lb 15.8 oz (88.9kg) SpO2 96% BMI 27.35 kg/(m2). Body surface area is 2.11 meters squared. Exam limited to gross visualization where appropriate. Gen.: This is an age-appropriate patient in no acute distress. Head: Appears atraumatic with no visible lesions. Eyes: Pupils equally round and reactive to light, extraocular muscles are intact. Neck: Supple. Respiratory: Appears to be respiring comfortably. Neurologic: Nonfocal to gross visualization. Alert and oriented ?3. Psychiatric: No evidence of inappropriate anxiety or [...] Take 10 mg by mouth once daily. __ (more content not included)... [facility] 10-06-2024 Telephone encounter Note Please place labs if needed for appt on 10/13. Lucy Murcia MA [facility] 10-06-[address] labs if needed for appt on 10/13. Lucy Murcia MA documented in this encounter [facility] 09-29-2024 Evaluation note Diagnosis Onset Date Resolution Chronic pain acute September 29, 10:13am Primary osteoarthritis of right hip acute September 29, 2024 10:13am Right knee pain acute September 10:13am Primary osteoarthritis of right hip acute October 20, 2024 9:25am CLL (chronic lymphocytic leukemia) acute November 18, 2024 8:59am Hypercholesterolemia acute Nov 8:59am Primary osteoarthritis of right hip acute November 18, 2024 8:59am Screening PSA (prostate specific antigen) acute November 18, 2024 8:59am 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, 2024 8:59am Subclinical hypothyroidism acute November 18, 2024 8:59am Medicare annual wellness visit, subsequent noneactive November 18, 2024 8:59am Preop exam for internal medicine noneactive November 18, 2024 8:59am [facility] Work Phone: 1(274) 592-887905-21-2025 Chief complaint+Reason for visit Narrative * Chief Complaint Admit Date Discuss Procedure August 04, 2024 8:20a m RIGHT HIP JOINT INJ/DS August 23, 2024 11:58am Reason for Visit Admit Date Chronic pain August 04, 2024 8:20a m Primary osteoarthritis of right hip August 04, 2024 8:20am Right knee pain August 04, 2024 8:20a m [facility] Work Phone: 1(411) 540-982505-21-2025 Chief complaint+Reason for visit Narrative * Chief Complaint Admit Date Discuss Procedure August 04, 2024 8:20a m RIGHT HIP JOINT INJ/DS August 23, 2024 11:58am F/U R HIP & MED REFILL September 29, 2024 1 0:13am Reason for Visit Admit Date Chronic pain August 04, 2024 8:20a m Primary osteoarthritis of right hip August 04, 2024 8:20am Right knee pain August 04, 2024 8:20a m Chronic pain September 29, 2024 10:1 3am Primary osteoarthritis of right hip September 29, 2024 10:13am Right knee pain September 29, 2024 10:1 3am [facility] Work Phone: 1(762) 815-528005-21-2025 Chief complaint+Reason for visit Narrative * Chief Complaint Admit Date Discuss Procedure August 04, 2024 8:20a m RIGHT HIP JOINT INJ/DS August 23, 2024 11:58am F/U R HIP & MED REFILL September 29, 2024 1 0:13am M16.11 - Unilateral primary osteoarthrit is, right October 20, 2024 8:39am CONSULT DR. ALBERTS RT HIP WX October 20, 2024 9:25am Reason for Visit Admit Date Chronic pain August 04, 2024 8:20a m Primary osteoarthritis of right hip August 04, 2024 8:20am Right knee pain August 04, 2024 8:20a m Chronic pain September 29, 2024 10:1 3am Primary osteoarthritis of right hip September 29, 2024 10:13am Right knee pain September 29, 2024 10:1 3am [facility] Work Phone: 1(256) 372-241905-21-2025 Chief complaint+Reason for visit Narrative * Chief Complaint Admit Date Discuss Procedure August 04, 2024 8:20a m RIGHT HIP JOINT INJ/DS August 23, 2024 11:58am F/U R HIP & MED REFILL September 29, 2024 1 0:13am M16.11 - Unilateral primary osteoarthrit is, right October 20, 2024 8:39am CONSULT DR. ALBERTS RT HIP WX October 20, 2024 9:25am Reason for Visit Admit Date Chronic pain August 04, 2024 8:20a m Primary osteoarthritis of right hip August 04, 2024 8:20am Right knee pain August 04, 2024 8:20a m Chronic pain September 29, 2024 10:1 3am Primary osteoarthritis of right hip September 29, 2024 10:13am Right knee pain September 29, 2024 10:1 3am Primary osteoarthritis of right hip Augu 2024 9:25am [facility] Work Phone: 1([phone]) 828-980405-21-2025 Evaluation note* Diagnosis Onset Date Resolution Status Admit Date Chronic pain acute August 04 8:20am Primary osteoarthritis of ri ght hip acute August 04, 2024 8 :20am Right knee pain acute August 04, 2024 8:20am [facility] Work Phone: 1(574) 624-112405-21-2025 Evaluation note* Diagnosis Onset Date Resolution Status Admit Date Chronic pain acute August 04 8:20am Primary osteoarthritis of ri ght hip acute August 04, 2024 8 :20am Right knee pain acute August 04, 2024 8:20am Chronic pain acute September 29, 2 025 10:13am Primary osteoarthritis of ri ght hip acute September 29, 2024 10:13am Right knee pain acute September 10:13am [facility] Work Phone: 1([phone]) 121-201505-21-2025 Evaluation note* Diagnosis Onset Date Resolution Status Admit Date Chronic pain acute August 04 8:20am Primary osteoarthritis of ri ght hip acute August 04, 2024 8 :20am Right knee pain acute August 04, 2024 8:20am Chronic pain acute September 29, 2 025 10:13am Primary osteoarthritis of ri ght hip acute September 29, 2024 10:13am Right knee pain acute September 10:13am Primary osteoarthritis of ri ght hip acute October 20, 2024 9:25am [facility] Work Phone: 1([phone]) 797-680701-09-2025 Evaluation note* Diagnosis Onset Date Resolution Status Admit Date Lumbar spondylosis acute 2024 10:42am Primary osteoarthritis of ri ght hip acute March 25 10:42am [facility] Work Phone: 1([phone]) 970-693701-09-2025 Evaluation note* Diagnosis Onset Date Resolution Status Admit Date Lumbar spondylosis acute 2024 10:42am Primary osteoarthritis of ri ght hip acute March 25 10:42am Lumbar spondylosis acute 2024 3:02pm Primary osteoarthritis of ri ght hip acute April 13 3:02pm Right knee pain acute March 182024 3:02pm [facility] Work Phone: 1(472) 366-975210-15-2024 History of Present illness Narrative* Vlad Juárez MD - 12/30/2023 8:40 AM EDT Images from the original note were not included. Subjective Patient ID: Kerwin Avila is a 73 y.o. 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 Resolved Ambulatory Problems Diagnosis Date Noted No Resolved Ambulatory Problems Past Medical History: Diagnosis Date Basal cell carcinoma 2015 BPPV (benign paroxysmal positional vertigo) Cancer of true vocal cord (CMS/HCC) Enlarged prostate with lower urinary tract symptoms (LUTS) Hx of radiation therapy 09/2019 Hyperlipidemia type II (CMS/HCC) Leukemia (CMS/HCC) Melanoma (CMS/HCC) 03/2020 Nonischemic congestive cardiomyopathy (CMS/HCC) CAMILLE (obstructive sleep apnea) Vocal cord mass 05/18/2019 Past Surgical History: Procedure Laterality Date BASAL CELL CARCINOMA EXCISION 07/2015 left ear COLONOSCOPY W/ BIOPSIES 06/15/2008 CRYOTHERAPY SKIN LESION multiple HERNIA REPAIR teenager KNEE ARTHROSCOPY W/ MENISCAL REPAIR 1978 SHOULDER ARTHROSCOPY 08/25/2018 SKIN CANCER EXCISION Right 03/28/2020 r/o melanoma RT confucianist SQUAMOUS CELL CARCINOMA EXCISION Right 05/18/2019 RT TVC, All VEIN SURGERY lower leg No Known Allergies Current Outpatient Medications on File Prior to Visit Medication Sig Dispense Refill atorvastatin (Lipitor) 10 MG tablet Take 10 mg by mouth 1 (one) time each day at the same time. meloxicam (Mobic) 15 MG tablet Take 15 mg by mouth in the morning. omeprazole (PriLOSEC) [address] capsule Take 40 mg by mouth in the morning. Take before meals. No current facility-administered medications on file prior to visit. Objective Last Recorded Vitals Vitals: 12/30/23 0845 BP: 124/54 ENT Physical Exam Constitutional Appearance: patient appears well-developed and well-nourished, Oral Cavity/Oropharynx OC/OP comments: OC/OP/IDL - no mass or ulcer Neck Neck comments: Supple, FROM, No LAD Patient ID: Kerwin Avila is a 73 y.o. male. Procedures A diagnostic flexible fiberoptic laryngoscopy was performed. The flexible fiberoptic laryngoscope was placed into the nose and advanced to the level of the tip of the epiglottis. Examination of the larynx including both surfaces of the epiglottis false and true vocal folds, arytenoids and surrounding mucosal surfaces show no evidence of lesion, ulceration or mass. Normal bilateral true vocal foldmotion is present. Bilateral piriform sinuses and base of tongue appear without lesion Assessment/Plan Diagnoses and all orders for this visit: Malignant tumor of glottis (CMS/HCC) FLORENCIO today. Start annual surveillance. Scope PRN documented in this encounterUniversity Health Truman Medical [id number] History of Present illness Narrative* Juancarlos Hernandez MD - 10/23/2023 10:00 AM EDT Radiation Oncology - Follow Up Note PATIENT DIAGNOSIS: Laryngeal cancer, right true cord T1N0M0 RADIATION SUMMARY: DATES OF TREATMENT: 6/01/20-09/23/19 AREA TREATED: Larynx DELIVERED DOSE: Larynx: 6,300cGy in 28 fractions, 2 Christian, 3D Conformal, 6MV with daily CBCT TOTAL:6,300cGy in 28 fractions ELAPSED TIME: 38 days. INTERVAL HISTORY: Doing well. 10/17/22: Doing well denies new problems. Denies [...] 1.050 1.340 ALLERGIES No Known Allergies MEDICATIONS: meloxicam (MOBIC) 15 mg tablet atorvastatin (LIPITOR) [...] rashes or other skin changes. PHYSICAL EXAM: 10/23/23 0948 BP: 128/74 Pulse: 66 Resp: 16 Temp: 36.8 C (98.3 F) SpO2: 95% Weight: 90.1 kg (198 lb 10.2 oz) KPS: 100 General Appearance: Well appearing, alert, [...] Doing well without evidence of recurrence. He continues close surveillance with Dr. Juárez. Plan to see patient back in 1 year for follow-up. 2. Chronic lymphocytic leukemia diagnosed Clinical stage I disease. Current therapy is observation an is seeing Dr. Ambrosio. Signed by: Juancarlos Hernandez MD cc: Ronald Pollard MD ([facility]) Dr. Juárez Portions of the above note extracted and edited from previous visit as well as active information included in the EMR. documented in this encounterLouis Stokes Cleveland [facility] Center08-08-2024 NoteHNO ID: [id number] Author: Juancarlos HERNANDEZ MD Service: ? Author Type: Physician Type: Progress Notes Filed: 10/28/2023 08:44 Note Text: Radiation Oncology - Follow Up Note PATIENT DIAGNOSIS: Laryngeal cancer, right true cord T1N0M0 RADIATION SUMMARY: DATES OF TREATMENT: 08/16/19-09/23/19 AREA TREATED: Larynx DELIVERED DOSE: Larynx: 6,300cGy in 28 fractions, 2 Christian, 3D Conformal, 6MV with daily CBCT TOTAL:6,300cGy in 28 fractions ELAPSED TIME: 38 days. INTERVAL HISTORY: Doing well. 10/17/22: Doing well denies new problems. Denies dysphagia or neck pain. Voice stable. 10/18/21:Patient developed episode of hair loss including eyebrows. Also some lack of appetite. Has been on odomzo. Which he has stopped and symptoms seem to have reversed. He was also started on prednisone. Also underwent laboratory work-up without significant findings. LABORATORY: Latest Reference Range AND Units 06/08/20 09:14 10/03/20 11:31 10/10/22 08:45 T4 5.5 - 10.2 ug/dL 6.8 6.3 6.3 TSH 0.270 - 4.200 mIU/L 1.390 1.050 1.340 ALLERGIES No Known Allergies MEDICATIONS: meloxicam (MOBIC) 15 mg tablet atorvastatin (LIPITOR) [...] rashes or other skin changes. PHYSICAL EXAM: 10/23/23 0948 BP: 128/74 Pulse: 66 Resp: 16 Temp: 36.8 ?C (98.3 ?F) SpO2: 95% Weight: 90.1 kg (198 lb 10.2 oz) KPS: 100 General Appearance: Well appearing, alert, [...] Doing well without evidence of recurrence. He continues close surveillance with Dr. Juárez. Plan to see patient back in 1 year for follow-up. 2. Chronic lymphocytic leukemia diagnosed Clinical stage I disease. Current therapy is observation an is seeing Dr. Ambrosio. Signed by: Juancarlos Hernandez MD cc: Ronald Pollard MD ([facility]) Dr. Juárez Portions of the above note extracted and edited from previous visit as well as active information included in the EMR.[facility]07-30-2024 History of Present illness Narrative* Wilver Ambrosio MD - 10/14/2023 3:04 PM EDT Patient: Kerwin Avila Location: [facility] : 1950 Attending Physician: Enrique Thurman MD Date: October 14, 2023 Note Type: Progress Note Chief Complaint: Chronic lymphocytic leukemia. Primary Diagnosis: Chronic lymphocytic leukemia diagnosed 04-29-06. Clinical stage I disease. Current therapy is observation. HPI: Mr. Avila is here today for a follow-up appointment of his chronic lymphocytic leukemia. 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 He denies any fevers, chills, night sweats, weight loss or infections. He has felt well and has hadno major medical issues. He was diagnosed with stage I laryngeal cancer and underwent definitive radiation therapy completing September. RADIATION SUMMARY: DATES OF TREATMENT: 08/16/19-09/23/19 AREA TREATED: Larynx DELIVERED DOSE: Larynx: 6,300cGy in 28 fractions, 2 Christian, 3D Conformal, 6MV with daily CBCT TOTAL:6,300cGy in 28 fractions ELAPSED TIME: 38 days. Past Medical History: Chronic lymphocytic leukemia, hyperlipidemia, basal cell skin cancer. Current Outpatient Medications Medication Sig Dispense Refill meloxicam (MOBIC) 15 mg tablet atorvastatin (LIPITOR) 10 mg tablet Take 10 mg by mouth once daily. No current facility-administered medications for this visit. Allergies: No Known Allergies. REVIEW OF SYSTEMS: CONSTITUTIONAL: Weight appetite and energy are all stable HEENT: No recurrent sinus issues or infections, no epistaxis EYES: No acute changes in vision CARDIOVASCULAR: No chest pain palpitation or leg swelling PULM: Breathing well no cough no hemoptysis no recurrent pneumonias GI: Habits are normal no diarrhea or melena or hematochezia : No new urinary complaints, including dysuria, gross hematuria or pyuria. NEURO: No new balance problems, peripheral weakness/paresthesias or numbness of concern. MUSC-SKEL: No new joint pain, swelling, or erythema. PSY: No concerns regarding depression, anxiety or panic. Lymph: No new lumps or bumps PHYSICAL EXAMINATION BP 138/77 Pulse 71 Temp 36.6 C (97.8 F) (Temporal) Resp 16 Ht 180.3 cm (5' 10.98 ) Wt 91 kg (200 lb 9.9 oz) SpO2 96% BMI 27.99 kg/m General: Alert and oriented, no distress, pleasant and cooperative. Heart: Regular, normal S1 and S2, no murmurs, rubs, or gallops Lungs: Clear to auscultation bilaterally no wheezes appreciated Abdomen: Nontender nondistended no organomegaly Extremities: Feet/ankles without edema, Lymph no cervical supraclavicular axillary adenopathy appreciated Neuro: 2-12 intact, normal gait Psyche: appropriate and affable Labs Reviewed: WBC 26 and no anemia and or thrombocytopenia Impression: 73 yo man with CLL. Currently in observation and doing well. Would continue observation at this time. Pateint would prefer annual lab and evaluation. Plan: 1. CLL -RV one year -pateint to contact the office with questions or concerns 2. Stage I laryngeal cancer status post radiation therapy completed September 2019 follow-up with ENT and Dr. Hernandez 3. Inguinal hernia I spent a total of 30 minutes on the date of the service which included preparing to see the patient, [id number] patient care, completing clinical documentation, obtaining and/or reviewing separately obtained history, performing a medically appropriate examination, ordering medications, tests, or procedures, and communicating with other HCPs (not separately reported). CC: Ronald Polalrd DO documented in this encounterLouis Stokes Cleveland [facility] Center01-03-2024 Evaluation note* Encounter Date Diagnosis Assessment Notes Treatment Notes Treatment Clinical Notes Mar, Laceration of left lower extremity, subsequent encounter (ICD-10 - S81.812D) [place] removed w/ superficial skin layer not well approximated. Some minor bleeding and surrounding erythema. No purulent drainage present Instructed to keep dry, cleanse w/ soap and water, elevate leg. Instructed to call office if wound opens up w/ bleeding or drainage Mar, Elevated BP without diagnosis of hypertension (ICD-10 - R03.0) This patient is instructed to consume a healthy, low-fat, low-salt diet. They are also encouraged to continue exercise to achieve/maintain a normal BMI. Monitor at home w/ goal < 140/90 _update office w/ results Mar, Removal of dora (ICD-10 - Z48.02) 20 dora removed from his left lower extremity laceration. They had been in place for 12 days. [employer] Other 10-26-2023 Evaluation note* Encounter Date Diagnosis Assessment Notes Treatment Notes Treatment Clinical Notes Dec, Other spondylosis with radiculopathy, lumbar region (ICD-10 - M47.26) Patients right lower extremity pain is tolerable at this time. In the meantime, patient will continue Meloxicam. We will follow up with the patient as needed. Anatomy of spine discussed in detail with patient in regards to patients condition. Overall, patient believes their pain is reasonably well controlled and he/she is in agreement with our treatment plan. Dec, Osteoarthritis of right hip (ICD-10 - M16.11) Patient denies any complaints of right hip pain at this time. He attributes this to a recent right intra-articular hip joint injection as well as meloxicam use. We will continue to monitor and proceed with future treatment to the area as needed. In the meantime, patient will continue taking Meloxicam. This medication was refilled today. Overall, patient believes their pain is reasonably well controlled and she is in agreement with our treatment plan. Dec, Other chronic pain (ICD-10 - G89.29) Dec, Other Above note written by Luis Carnes LPN, Director Of Safety And Security. Edited and approved by Dr. Jesse Alberts MD. [employer] Other 10-20-2023 Evaluation note* Encounter Date Diagnosis Assessment Notes Treatment Notes Treatment Clinical Notes Dec, Spondylosis of lumba r region without myelopathy or radiculopathy (ICD-10 - M47.816) [employer] Other 08-22-2023 History of Present illness Narrative* Wilver Ambrosio MD - 11/05/2022 2:58 PM EDT Patient: Kerwin Avila Location: [facility] : 1950 Attending Physician: Enrique Thurman MD Date: November 05, 2022 Note Type: Progress Note Chief Complaint: Chronic lymphocytic leukemia. Primary Diagnosis: Chronic lymphocytic leukemia diagnosed 04-29-06. Clinical stage I disease. Current therapy is observation. HPI: Mr. Avila is here today for a follow-up appointment of his chronic lymphocytic leukemia. 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 He denies any fevers, chills, night sweats, weight loss or infections. He has felt well and has hadno major medical issues. He was diagnosed with stage I laryngeal cancer and underwent definitive radiation therapy completing September. RADIATION SUMMARY: DATES OF TREATMENT: 08/16/19-09/23/19 AREA TREATED: Larynx DELIVERED DOSE: Larynx: 6,300cGy in 28 fractions, 2 Christian, 3D Conformal, 6MV with daily CBCT TOTAL:6,300cGy in 28 fractions ELAPSED TIME: 38 days. Past Medical History: Chronic lymphocytic leukemia, hyperlipidemia, basal cell skin cancer. Current Outpatient Medications Medication Sig Dispense Refill meloxicam (MOBIC) 15 mg tablet atorvastatin (LIPITOR) 10 mg tablet Take 10 mg by mouth once daily. No current facility-administered medications for this visit. Allergies: No Known Allergies. REVIEW OF SYSTEMS: CONSTITUTIONAL: Weight appetite and energy are all stable HEENT: No recurrent sinus issues or infections, no epistaxis EYES: No acute changes in vision CARDIOVASCULAR: No chest pain palpitation or leg swelling PULM: Breathing well no cough no hemoptysis no recurrent pneumonias GI: Habits are normal no diarrhea or melena or hematochezia : No new urinary complaints, including dysuria, gross hematuria or pyuria. NEURO: No new balance problems, peripheral weakness/paresthesias or numbness of concern. MUSC-SKEL: No new joint pain, swelling, or erythema. PSY: No concerns regarding depression, anxiety or panic. Lymph: No new lumps or bumps PHYSICAL EXAMINATION BP 128/64 Pulse 68 Temp 36.7 C (98.1 F) (Temporal) Resp 16 Ht 180.3 cm (5' 11 ) Wt 91.6 kg (202 lb) SpO2 97% BMI 28.17 kg/m General: Alert and oriented, no distress, pleasant and cooperative. Heart: Regular, normal S1 and S2, no murmurs, rubs, or gallops Lungs: Clear to auscultation bilaterally no wheezes appreciated Abdomen: Nontender nondistended no organomegaly Extremities: Feet/ankles without edema, Lymph no cervical supraclavicular axillary adenopathy appreciated Neuro: 2-12 intact, normal gait Psyche: appropriate and affable Labs Reviewed: WBC 26 and no anemia and or thrombocytopenia Impression: 72 yo man with CLL. Currently in observation and doing well. Would continue observation at this time. Pateint would prefer annual lab and evaluation. Plan: 1. CLL -RV one year -pateint to contact the office with questions or concerns 2. Stage I laryngeal cancer status post radiation therapy completed September 2019 follow-up with ENT and Dr. Hernandez 3. Inguinal hernia I spent a total of 30 minutes on the date of the service which included preparing to see the patient, [id number] patient care, completing clinical documentation, obtaining and/or reviewing separately obtained history, performing a medically appropriate examination, ordering medications, tests, or procedures, and communicating with other HCPs (not separately reported). CC: Ronald Pollard DO documented in this encounterLouis Stokes Cleveland [facility] Center08-03-2023 History of Present illness Narrative* Juancarlos eHrnandez MD - 10/17/2022 9:30 AM EDT Radiation Oncology - Follow Up Note PATIENT DIAGNOSIS: Laryngeal cancer, right true cord T1N0M0 RADIATION SUMMARY: DATES OF TREATMENT: 08/16/19-09/23/19 AREA TREATED: Larynx DELIVERED DOSE: Larynx: 6,300cGy in 28 fractions, 2 Christian, 3D Conformal, 6MV with daily CBCT TOTAL:6,300cGy in 28 fractions ELAPSED TIME: 38 days. INTERVAL HISTORY: Doing well denies new problems. Denies dysphagia [...] 1.050 1.340 ALLERGIES No Known Allergies MEDICATIONS: meloxicam (MOBIC) 15 mg tablet atorvastatin (LIPITOR) [...] rashes or other skin changes. PHYSICAL EXAM: 10/17/22 0935 BP: 144/77 Pulse: 60 Resp: 18 Temp: (!) 35.8 C (96.5 F) SpO2: 96% Weight: 90.5 kg (199 lb 9.6 oz) KPS: 100 General Appearance: Well appearing, alert, [...] cord T1N0M0, status post radiation September 2019 Patient continues to do very well. No evidence of recurrence. He continues close surveillance with Dr. Juárez. Plan to see patient back in 1 year for follow-up. 2. Chronic lymphocytic leukemia diagnosed Clinical stage I disease. Current therapy is observation seeing Dr. Ambrosio. Signed by: Juancarlos Hernandez MD cc: Ronald Pollard MD (Dr) Dr. Juárez Portions of the above note extracted and edited from previous visit as well as active information included in the EMR. documented in this encounterLouis Stokes Cleveland [facility] Center04-13-2023 Evaluation note* Encounter Date Diagnosis Assessment Notes Treatment Notes Treatment Clinical Notes Jun, Hyperlipidemia type II (ICD-10 - E78.01) Diet and exercise with continued statin therapy. 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 They are to use intermittent heat and ice as needed. They may schedule a massage or gentle manipulation. They may safely use Tylenol as needed. Jun, Overweight (BMI 25.0-29.9) (ICD-10 - E66.3) This patient has been instructed on a low-fat, high-fiber diet. They are instructed to reduce calories, portion sizes and snacks. It is recommended that they exercise for 30 minutes, 3-5 times weekly. 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 Advanced care planning reviewed and/or information given as requested. Additional counseling was provided here today in regards to, [ ]. The above visit was performed by [ ], under direct supervision of [ ]. Document reviewed and amended by provider signed below. Healthy diet and exercise. Reviewed age-appropriate preventive testing recommended. Jun, Screening PSA (prostate specific antigen) (ICD-10 - Z12.5) Yearly GIO and PSA Jun, High risk medication use (ICD-10 - Z79.899) [employer] Other 03-29-2023 Evaluation note* Encounter Date Diagnosis Assessment Notes Treatment Notes Treatment Clinical Notes May, Osteoarthritis of right hip (ICD-10 - M16.11) [employer] Other 01-19-2023 Evaluation note* Encounter Date Diagnosis Assessment Notes Treatment Notes Treatment Clinical Notes Mar, Osteoarthritis of right hip (ICD-10 - M16.11) [employer] Other 10-24-2022 Evaluation note* Encounter Date Diagnosis Assessment Notes Treatment Notes Treatment Clinical Notes Dec, Other spondylosis with radiculopathy, lumbar region (ICD-10 - M47.26) Patients right lower extremity pain is tolerable at this time. Recent MRI results show evidence of severe right neural foraminal narrowing at L4-5, consistent with his symptoms. It was further discussed should his radiating pain return, we can consider proceeding with a repeat right lumbar transforaminal. In the meantime, patient will continue Meloxicam. We will follow up with the patient as needed. Anatomy of spine discussed in detail with patient in regards to patients condition. Overall, patient believes their pain is reasonably well controlled and he/she is in agreement with our treatment plan. Overall, patient believes their pain is reasonably well controlled and he is in agreement with our treatment plan. Dec, Osteoarthritis of right hip (ICD-10 - M16.11) Patient denies any complaints of right hip pain at this time. He attributes this to a recent right intra-articular hip joint injection. We will continue to monitor and proceed with future treatment to the area as needed. In the meantime, patient will continue taking Meloxicam. This medication was refilled today. Overall, patient believes their pain is reasonably well controlled and she is in agreement with our treatment plan. Dec, Other chronic pain (ICD-10 - G89.29) Dec, Other Above note written by Duong Saenz MA, Director Of Safety And Security. Edited and approved by Dr. Jesse Alberts MD. 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 He shows notable pain consistent with degenerative changes upon exam which is supported by previous imaging. We will start treatment conservatively with physical therapy. We discussed if symptoms persist we can consider facet injections viewing these as diagnostically as well as hopefully therapeutically. In the meantime, We will plan on trialing Meloxicam 15 mg once daily. Risks and side effects of this medication was discussed in detail with the patient who voiced understanding. Anatomy of spine discussed in detail with patient in regard to patients condition. Oct, DDD (degenerative disc disease), lumbar (ICD-10 - M51.36) Oct, Other chronic pain (ICD-10 - G89.29) Oct, Other Above note writ ten by Luis Carnes LPN, Director Of Safety And Security. Edited and approved by Dr. Jesse Alberts MD. [employer] Other 11-08-2021 Evaluation note* Encounter Date Diagnosis Assessment Notes Treatment Notes Treatment Clinical Notes Jan, Other spondylosis with radiculopathy, lumbar region (ICD-10 - M47.26) 08 Nov, 2021 Right hip pain (ICD-10 - M25.551) Patient's main complaint is his right hip pain. Patient has failed several conservative treatment options. He received nearly one year of reasonable relief following the previous hip injection we performed. We discussed a repeat injection vs referral to orthopedics, he states that he does not want to have surgery at this point. Based on these results and returning pain symptoms, patient is a candidate for a repeat right intraarticular hip injection which we will proceed with. Risks and benefits of procedure explained to patient; patient verbalizes understanding. Jan, DDD (degenerative disc disease), lumbar (ICD-10 - M51.36) Jan, Other chronic pain (ICD-10 - G89.29) Jan, Other Above note writ ten by Adeel Farr CMA, Director Of Safety And Security. Edited and approved by Dr. Jesse Alberts MD. 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 Other Evaluation noteNo assessment information available [facility] [employer] Work Phone: Evaluation note* Diagnosis Larynx cancer (HCC)- Primary Malignant neoplasm of larynx, unspecified site Radiation sickness, unspecified, initial encounter [facility] Diagnosis CLL (chronic lymphocytic leukemia) (HCC)- Primary Chronic lymphoid leukemia, without mention of having achieved remission [facility] Diagnosis History of cancer of larynx- Primary Personal history of malignant neoplasm of larynx documented [facility] Diagnosis Onset Date Resolution Status CLL (chronic lymphocytic leukemia) acute Erectile dysfunction acute Hypercholesterolemia acute Inguinal hernia of right rafat e without obstruction or gangrene acute Lumbar spondylosis acute Primary osteoarthritis of right hip acute Screening PSA (prostate specific antigen) acute 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 Subclinical hypothyroidism a cute Medicare annual wellness visit, subsequent noneactive [facility] [employer] Work Phone: Evaluation note* Diagnosis 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 documented in this encounter [facility]* Diagnosis History of cancer of larynx- Primary Personal history of malignant neoplasm of larynx [facility] Diagnosis CLL (chronic lymphocytic leukemia) (HCC)- Primary Chronic lymphoid leukemia, without mention of having achieved remission Personal history of malignant neoplasm of larynx Unilateral inguinal hernia without obstruction or gangrene, recurrence not specified Presence of right artificial hip joint Hip joint replacement by other means [facility] Diagnosis CLL (chronic lymphocytic leukemia) (HCC)- Primary Chronic lymphoid leukemia, without mention of having achieved remission documented in this encounter [facility] general Narrative - Reported* Type Description Date Medical History chronic lymo leukemia Medical History hyperlipidemia Medical History Erectile dysfunction Medical History Hyperlipidemia type II Medical History Nocturnal leg cramps Medical History Cancer of vocal cord Surgical History 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 Surgical History 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 Hospitalization History See Above [facility] [employer] Other Hospital Discharge instructionsAmbulatory Orders* Referral to Orthopedics Time Frame: 09/29/24, Location: None Selected [facility] Work Phone: Reason for referral (narrative)No reason for referral information availableFostoria City Hospital Work Phone: Summary Purpose Family History Relationship Condition Age at Onset Recorded Date/T peyton father Unknown mother Unknown Advance Directives Advance Directive Response Recorded Date/ Time Advance Directives No December 16, 2019 2:26pm Advance Directive Response Recorded Date/ Time Advance Directives No December 16, 2019 1:26pm Assessments N/A Reason for Referral Name Reason for referral NA NA Chief Complaint and Reason for Visit Chief Complaint M54.59 Chief Complaint wellness Unknown Reason for Visit CLL (chronic lymphoc ytic leukemia) Erectile dysfunction Hypercholesterolemia Inguinal hernia of right side without obstruction or gangrene Lumbar spondylosis Primary osteoarthritis of right hip Screening PSA (prostate specific antigen) Squamous cell carcinoma of vocal cord Subclinical hypothyroidism Medicare annual wellness visit, subsequent Chief Complaint Admit Date RT HIP PAIN March 25, 2024 10 :42am M16.11 - Unilateral primary osteoarthrit is, right March 25, 2024 11:18am Reason for Visit Admit Date Lumbar spondylosis March 25, 2024 10 :42am Primary osteoarthritis of right hip Memo [email or web address] 10:42am Chief Complaint Admit Date RT HIP PAIN March 25, 2024 10 :42am M16.11 - Unilateral primary osteoarthrit is, right March 25, 2024 11:18am RIGHT INTRA-ARTICULAR HIP INJ/DS Memo 2024 11:45am F.U RIGHT HIP INJ April 13, 2024 3 :02pm M25.561 - Pain in right knee March 3:36pm Reason for Visit Admit Date Lumbar spondylosis March 25, 2024 10 :42am Primary osteoarthritis of right hip Memo 2024 10:42am Lumbar spondylosis April 13, 2024 3 :02pm Primary osteoarthritis of right hip Memo 2024 3:02pm Right knee pain April 13, 2024 3 :02pm Chief Complaint Admit Date RIGHT HIP JOINT INJ/DS August 23, 2024 11:58am F/U R HIP & MED REFILL September 29, 2024 1 0:13am M16.11 - Unilateral primary osteoarthrit is, right October 20, 2024 8:39am CONSULT DR. ALBERTS RT HIP WX October 20, 2024 9:25am Surgical Clearance (R Total Hip w Dr.Car nur) November 18, 2024 8:59am Reason for Visit Admit Date Chronic pain September 29, 2024 10:1 3am Primary osteoarthritis of right hip September 29, 2024 10:13am Right knee pain September 29, 2024 10:1 3am Primary osteoarthritis of right hip Octu 2024 9:25am CLL (chronic lymphocytic leukemia) Nove er 2024 8:59am Hypercholesterolemia November 18, 2024 8:59am Primary osteoarthritis of right hip Sept ember 2024 8:59am Screening PSA (prostate specific antigen ) November 18, 2024 8:59am Squamous cell carcinoma of vocal cord Se ptember 2024 8:59am Subclinical hypothyroidism November 8:59am Medicare annual wellness visit, subseque nt November 18, 2024 8:59am [facility] Additional Source Comments (unrecognized sect ion and content) No Status Records FoundNo Status Records FoundNo Status Records FoundNo Status Records FoundNo Status Records FoundNo Status Records Found INFORMATION SOURCE (unrecogn ized section and content) DATE CREATED AUTHOR 08/01/2019 [address] [facility] DATE CREATED AUTHOR AUTHOR'S ORGANIZ ATION 03/28/2020 [facility] DATE CREATED AUTHOR AUTHOR'S ORGANIZ ATION 07/04/2022 [facility] DATE CREATED AUTHOR AUTHOR'S ORGANIZ ATION 01/01/2024 [facility] EPIC DATE CREATED AUTHOR AUTHOR'S ORGANIZ ATION 10/18/2024 [facility] DATE CREATED AUTHOR AUTHOR'S ORGANIZ ATION 10/22/2024 [facility] REASON FOR VISIT (unrecogniz ed section and content) Reason Comments Head and Neck Cancer Reason Comments CLL 1 year follow up Reason Comments Cancer 6 month follow up Ma lignant tumor of glottis Reason Comments CLL EVERARDO/ 1 year follow u p Reason Comments Lab Orders Care Teams (unrecognized sec tion and content) Team Status: Active Member Role Status Dates Ronald Pollard DO Primary Care Provider Active Team Status: Inactive Member Role Status Dates Ronald Pollard DO Primary Care Provider Active Start: March 25, 2024 End: March 25, 2024 Jesse Alberts MD Attending Provider Active Sta rt: March 25, 2024 End: March 25, 2024 Team Status: Active Member Role Status Dates Ronald Pollard DO Primary Care Provider Active Start: October 14, 2023 Wilver Ambrosio MD Attending Provider Active St art: October 14, 2023 Team Status: Inactive Member Role Status Dates Ronald Pollard DO Primary Care Provide r, Attending Provider Active Start: November 05, 2023 End: November 05, 2023 Team Status: Inactive Member Role Status Dates Ronald Pollard DO Primary Care Provide r, Attending Provider Active Start: November 11, 2023 End: November 11, 2023 Team Status: Active Member Role Status Dates Ronald Pollard DO Primary Care Provide r, Attending Provider Active Start: November 11, 2023 Team Status: Inactive Member Role Status Dates Ronald Pollard DO Primary Care Provider Active Jesse Alberts MD Attending Provider Active Oiler Bander Relationship Specialty Start Date End Date Ronald Pollard DO PCP - General Internal Medicine 05/02/11 Oiler Bander Relationship Specialty Start Date End Date Ronald Pollard DO PCP - General Internal Medicine 05/02/11 Oiler Bander Relationship Specialty Start Date End Date Ronald Pollard MD [address] [place] [id number] PCP - General Internal Medicine 08/20/22 Oiler Bander Relationship Specialty Start Date End Date Ronald Pollard MD [address] [place] [address] PCP - General Internal Medicine 08/20/22 Team Status: Inactive Member Role Status Dates Ronald Pollard DO Primary Care Provider Active Start: April 05, 2024 End: April 05, 2024 Jesse Alberts MD Attending Provider Active Sta rt: April 05, 2024 End: April 05, 2024 Team Status: Active Member Role Status Dates Ronald Pollard DO Primary Care Provider Active Start: April 05, 2024 Jesse Alberts MD Attending Provider Active Sta rt: April 05, 2024 Team Status: Inactive Member Role Status Dates Ronald Pollard DO Primary Care Provider Active Start: April 13, 2024 End: April 13, 2024 Jesse Alberts MD Attending Provider Active Sta rt: April 13, 2024 End: April 13, 2024 Team Status: Inactive Member Role Status Dates Ronald Pollard DO Primary Care Provider Active Start: August 04, 2024 End: August 04, 2024 Jesse Alberts MD Attending Provider Active Sta rt: August 04, 2024 End: August 04, 2024 Team Status: Inactive Member Role Status Dates Ronald Pollard DO Primary Care Provider Active Start: August 23, 2024 End: August 23, 2024 Jesse Alberts MD Attending Provider Active Sta rt: August 23, 2024 End: August 23, 2024 Team Status: Active Member Role Status Dates Ronald Pollard DO Primary Care Provider Active Start: August 23, 2024 Jesse Alberts MD Attending Provider Active Sta rt: August 23, 2024 Team Status: Inactive Member Role Status Dates Ronald Pollard DO Primary Care Provider Active Start: September 29, 2024 End: September 29, 2024 Jesse Alberts MD Attending Provider Active Sta rt: September 29, 2024 End: September 29, 2024 Oiler Bander Relationship Specialty Start Date End Date Ronald PollardDO PCP - General Internal Medicine 05/02/11 Oiler Bander Relationship Specialty Start Date End Date Ronald PollardDO PCP - General Internal Medicine 05/02/11 Oiler Bander Relationship Specialty Start Date End Date Ronald PollardDO PCP - General Internal Medicine 05/02/11 Team Status: Active Member Role Status Dates Ronald Pollard DO Primary Care Provider Active Start: October 13, 2024 ADALID Lynn Attending Provider Active Start: October 13, 2024 Team Status: Active Member Role Status Dates Ronald Pollard DO Primary Care Provider Active Start: October 20, 2024 Crow Box II, MD Attending Provider Active Start: October 20, 2024 Team Status: Inactive Member Role Status Dates Ronald Pollard DO Primary Care Provider Active Start: October 20, 2024 End: October 20, 2024 Crow Box II, MD Attending Provider Active Start: October 20, 2024 End: October 20, 2024 Team Status: Inactive Member Role Status Dates Ronald Pollard DO Primary Care Provider Active Start: November 18, 2024 End: November 18, 2024 Ronald Pollard DO Attending Provider Active Sta rt: November 18, 2024 End: November 18, 2024 Goals (unrecognized section and content) Goals may be documented in a n alternate section Source Comments (unrecognize d section and content) In the event this informatio n is protected by the Federal Confidentiality of Alcohol and Drug Abuse Patient Records regulations: The Federal rules restrict any use of the information to criminally investigate or prosecute any alcohol or drug abuse patient.[facility] the event this information is protected by the Federal Confidentiality of Alcohol and Drug Abuse Patient Records regulations: The Federal rules restrict any use of the information to criminally investigate or prosecute any alcohol or drug abuse patient.[facility] Center[facility] the event this information is protected by the Federal Confidentiality of Alcohol and Drug Abuse Patient Records regulations: The Federal rules restrict any use of the information to criminally investigate or prosecute any alcohol or drug abuse patient.[facility] Center[facility] the event this information is protected by the Federal Confidentiality of Alcohol and Drug Abuse Patient Records regulations: The Federal rules restrict any use of the information to criminally investigate or prosecute any alcohol or drug abuse patient.[facility] the event this information is protected by the Federal Confidentiality of Alcohol and Drug Abuse Patient Records regulations: The Federal rules restrict any use of the information to criminally investigate or prosecute any alcohol or drug abuse patient.[facility] Center[facility] the event this information is protected by the Federal Confidentiality of Alcohol and Drug Abuse Patient Records regulations: The Federal rules restrict any use of the information to criminally investigate or prosecute any alcohol or drug abuse patient.[facility] Center[facility] the event this information is protected by the Federal Confidentiality of Alcohol and Drug Abuse Patient Records regulations: The Federal rules restrict any use of the information to criminally investigate or prosecute any alcohol or drug abuse patient.[facility] FOR RECORDS PERTAINING TO PATIENTS WHO ARE OR HAVE BEEN ENROLLED IN A CHEMICAL DEPENDENCY/SUBSTANCEABUSE PROGRAM, SOME INFORMATION MAY BE OMITTED. This clinical summary was aggregated from multiple sources. Caution should be exercised in using it in the provision of clinical care. This summary normalizes information from multiple sources, and as a consequence, information in this document may materially change the coding, format and clinical context of patient data. In addition, data may be omitted in some cases. CLINICAL DECISIONS SHOULD BE BASED ON THE PRIMARY CLINICAL RECORDS. [facility] [employer] [facility] provides no warranty or guarantee of the accuracy or completeness of information in this document.
[2024-11-22 10:43] LABS: Alanine Aminotransferase 28 U/L (16-63); Albumin Globulin Ratio 1.4; Albumin Level 4.2 g/dL (3.4-5.0); Alkaline Phosphatase 73 U/L (46-116); Anion Gap 12.8; Aspartate Amino Transferase 18 U/L (15-37); Blood Urea Nitrogen 19.0 mg/dL (7.0-18.0); Calcium 9.6 mg/dL (8.5-10.1); Carbon Dioxide 29.4 mmol/L (21.0-32.0); Chloride 107 mmol/L (98-107); Cholesterol 174 mg/dL (<=200); Estimated GFR (African America >60 (>=60 mL/min/1.73m^2); Estimated GFR (Non-African Ame >60 (>=60 mL/min/1.73m^2); Globulin 3.1 g/dL; Glucose 104 mg/dL (74-106); HDL Cholesterol 59 mg/dL (40-60); Potassium 4.2 mmol/L (3.5-5.1); Sodium 145 mmol/L (136-145); TSH W/ REFLEX FT4 1.016 uIU/mL (0.358-3.740); Total Protein 7.3 g/dL (6.4-8.2); Triglycerides 52 mg/dL (<=150); VLDL CHOLESTEROL 10.4 mg/dL
== END 2024-11-22 09:33 | disposition home or self-care (01) ==
LOC: LAB 09:34
PROVIDERS: PCP Internal Medicine; Visit Provider Internal Medicine
DX: Z12.5 Encounter for screening for malignant neoplasm of prostate (principal); E03.8 Other specified hypothyroidism; R79.89 Other specified abnormal findings of blood chemistry; E78.00 Pure hypercholesterolemia, unspecified; Z79.899 Other long term (current) drug therapy
CPT/HCPCS: 36415; 80053; 80061; 84443; G0103